=== PATIENT | male | born 1950 | race Caucasian/White ===

== ENCOUNTER → 2016-08-15 | Outpatient (CLI) | payer OTHER ==
[~2016-08-15] MED LIST: AMB5 PO; CHOL1000 PO; CYAN100T PO; DULO60CA44 PO; LISI-461 PO; OMEP40CA PO
--- NOTE | 2016-08-15 12:47 | DIAGNOSTIC IMAGING REPORT ---
LEFT CLAVICLE 2 VIEWS CLINICAL HISTORY: Fall with left clavicular pain. FINDINGS: 2 views of left clavicle are compared to study dated 05/09/2016. The skeletal structures appear osteopenic. There is chronic posttraumatic deformity of the left clavicle with mild apex superior angulation. No definite acute fracture is seen. Productive degenerative change is noted at the acromioclavicular articulation. Arthritic change is also seen at the glenohumeral joint. Visualized upper lobe lung parenchyma appears clear. IMPRESSION: Osteopenia with chronic posttraumatic deformity of the left clavicle as above. No acute fracture is clearly identified. Electronically signed by: Stu Faith M.D. 08/15/2016 12:46 PM Dictated Date/Time: 08/15/2016 12:43 PM
--- NOTE | 2016-08-15 12:52 | DIAGNOSTIC IMAGING REPORT ---
PA CHEST WITH RIGHT-SIDED RIB SERIES CLINICAL HISTORY: Fall with right-sided chest wall pain. FINDINGS: A PA chest radiograph with 4 additional views may right-sided rib series are compared to study dated 01/24/2015. Correlation is made with chest CT dated 12/18/2014. The cardiomediastinal silhouette is unremarkable. There is atherosclerotic calcification of the thoracic aorta. Chronic interstitial thickening is similar to previous. No airspace consolidation or pleural effusion is identified. No pneumothorax is seen. The skeletal structures are osteopenic. There is chronic posttraumatic deformity of the left clavicle and numerous healed left-sided rib fractures. There is no radiographic evidence of acute/distracted right-sided rib fracture on the rib series. Numerous healed anterior rib fractures are again seen. Degenerative change is noted throughout the thoracic spine. Fusion hardware is noted in the lumbar spine. IMPRESSION: 1. No acute cardiopulmonary abnormality. 2. There are numerous healed right anterior rib fractures. There is no clear radiographic evidence of acute/distracted right-sided rib fracture. 3. No pneumothorax is seen. Electronically signed by: Stu Faith M.D. 08/15/2016 12:51 PM Dictated Date/Time: 08/15/2016 12:46 PM
== END | disposition home or self-care (01) ==
LOC: C.RAD 12:21
PROVIDERS: ATTEND Physician Assistant
DX: W19.XXXA Unspecified fall, initial encounter (principal); S42.022P Displaced fracture of shaft of left clavicle, subsequent encounter for fracture with malunion

== ENCOUNTER → 2016-10-31 | Outpatient (CLI) | payer OTHER ==
[2016-10-31 11:24] LABS: BASO % 0.4 %; BASO ABS # 0.03 K/uL (0-0.2); COMPLETE YES; EOS % 4.4 %; HEMATOCRIT 43.8 % (42-52); IG% 0.3 %; LYMPH % 25.7 %; LYMPH ABS # 1.99 K/uL (1.2-3.4); MEAN CELL VOLUME 94.2 fL (80-100); MEAN CORPUSCULAR HEMOGLOBIN 33.1 pg (25-34); MEAN CORPUSCULAR HGB CONC 35.2 g/dl (32-36); MEAN PLATELET VOLUME 9.8 fL (7.4-10.4); MONO % 9.8 %; NEUT % 59.4 %; PLATELET COUNT 253 K/uL (130-400); RED BLOOD COUNT 4.65 M/uL (4.7-6.1); WHITE BLOOD COUNT 7.73 K/uL (4.8-10.8)
[2016-10-31 11:39] LABS: BLOOD UREA NITROGEN 13 mg/dl (7-18); BUN/CREATININE RATIO 14.8 (10-20); CALCIUM 9.3 mg/dl (8.5-10.1); CARBON DIOXIDE 29 mmol/L (21-32); CHLORIDE 100 mmol/L (98-107); CHOLESTEROL 188 mg/dl (0-200); CHOLESTEROL/HDL RATIO 5.5; CREATININE 0.88 mg/dl (0.60-1.40); GLUCOSE 217 mg/dl (70-99); HDL CHOLESTEROL 34 mg/dl; POTASSIUM 3.9 mmol/L (3.5-5.1); SODIUM 138 mmol/L (136-145)
[2016-10-31 11:40] LABS: LDL CHOLESTEROL CALCULATED 120 mg/dl; TRIGLYCERIDES 168 mg/dl (0-150); VERY LOW DENSITY LIPOPROT CALC 34 mg/dl
[2016-10-31 12:58] LABS: ESTIMATED AVERAGE GLUCOSE 212 mg/dl; HA1C FLAG Normal (Normal)
== END | disposition home or self-care (01) ==
LOC: C.LABSPEC 11:01
PROVIDERS: ATTEND Family Medicine
DX: S32.039D Unspecified fracture of third lumbar vertebra, subsequent encounter for fracture with routine healing (principal); X58.XXXD Exposure to other specified factors, subsequent encounter; E78.2 Mixed hyperlipidemia; Z98.1 Arthrodesis status; E11.622 Type 2 diabetes mellitus with other skin ulcer; G62.9 Polyneuropathy, unspecified

== ENCOUNTER 2021-05-10 11:49 | Inpatient (IN) ==
--- NOTE | 2021-05-10 11:36 | Emergency Department Note ---
Impression & Plan Acute ST segment elevation IA, Chest pain, Vomiting ED Provider Note NAME: KIRSTEN RODRIGUEZ AGE: 70 SEX: M : 1950 ARRIVES VIA: Ambulance INFORMANT: Patient, EMS ED PROVIDER(S): Fam Evans DO CHIEF COMPLAINT: Chest pain HPI: The patient is a 70-year-old male who presented to emergency department for an evaluation of chest pain. The patient's been experiencing symptoms over the last 3 days. He started having very severe nausea vomiting and upper chest discomfort over the last couple days. Symptoms appear to have improved somewhat but then he started having a return of his symptoms today. He notices chest heaviness and chest pressure. He states he has no back pain. He denies having any difficulty breathing or lower extremity swelling. He has a history of diabetes as well as tobacco use. He has not had any kind of heart attack in the past. He was brought to the emergency department via ALS. The patient was made a heart alert prior to arrival. He was given aspirin morphine Zofran and IV fluids prior to arrival. His pain is not significantly improved. The patient was made a heart alert and received into room B1. The patient has not seen his family doctor recently. ROS: See above HPI for pertinent positives & negatives. A total of 10 systems reviewed and were otherwise negative. PAST MEDICAL HISTORY: See Below PAST SURGICAL HISTORY: See Below FAMILY HISTORY: See Below SOCIAL HISTORY: See Below HOME MEDICATIONS: See Below ALLERGIES: See Below VITALS: See Below PHYSICAL EXAMINATION: GENERAL: The patient is awake and alert. He appears somewhat uncomfortable. EYES: The conjunctivae are clear. The pupils are round and reactive. EARS, NOSE, MOUTH AND THROAT: The nose is without any evidence of any deformity. NECK: The neck is nontender and supple. RESPIRATORY: Normal respiratory effort is noted there is no evidence of wheezing rhonchi or rales CARDIOVASCULAR: Regular rate and rhythm noted there no murmurs rubs or gallops normal S1 normal S2. GASTROINTESTINAL: The abdomen is soft. Abdomen is nontender. MUSCULOSKELETAL/EXTREMITIES: There is no evidence of gross deformity full range of motion is noted in the hips and shoulders. SKIN: There is no obvious evidence of any rash. There are no petechiae, pallor or cyanosis noted. NEUROLOGIC: Patient is awake alert and oriented x3 MEDICAL DECISION MAKING: The patient is a 70-year-old male who presented to the emergency department for an evaluation of chest pain. The patient arrived via ambulance. I did receive a prehospital notification about the patient as well as prehospital EKGs. The patient was made a heart alert prior to arrival. He received aspirin nitroglycerin morphine and IV fluids prior to arrival. His pain was not significantly improved. The patient's EKG appeared to be consistent with a STEMI however this appeared to be age-indeterminate given his prominent Q waves. The patient was evaluated by the rf technician in the emergency department. I also discussed his case with the on-call [facility] hospitalist group. They have agreed to evaluate the patient after the Curb Worker. Triage Nursing notes reviewed. Prior medical records reviewed Vital Signs: reviewed and remarkable for elevated blood pressure. Differential diagnosis: Cardiac ischemia, aortic dissection, pulmonary embolism, pneumothorax, pneumonia, pericarditis, myocarditis, esophageal rupture, GERD, cholecystitis, pancreatitis, musculoskeletal, as well as other pathologies. ER treatment provided: See below Diagnostics interpreted by me: ECG: EKG was obtained in the emergency department. My interpretation is normal sinus rhythm at 93 bpm. Poor baseline was noted. There was no ectopy. Significant ST segment elevation was noted in the inferior apical and low lateral leads. There is also Q waves noted anteriorly and inferiorly. This is likely consistent with a recent ST segment elevation IA. This was compared to a tracing from May 102015. The changes are new. Prehospital EKGs were evaluated. My interpretation is sinus rhythm at 84 bpm. There is no ectopy. Significant Q waves were noted in the inferior anterior and lateral leads. There was significant ST segment elevation noted in the inferior apical and low lateral leads. This appears to be consistent with an acute IA. This was compared to a tracing from May 102015. The ST segment in ischemic changes are new compared to the earlier tracing. A second EKG was obtained by the prehospital personnel. My interpretation is normal sinus rhythm at 81 bpm. Persistence of the earlier noted ST segment elevation as well as the inferior and low lateral Q waves was noted. Cardiac Monitoring: An order was placed for continuous cardiac monitoring. The monitor shows a rate of 87 bpm with sinus rhythm. Laboratory studies: As stated above and show below. Imaging studies: See below Consultation(s): I discussed this case with Dr. Guerrier who is the rf technician. I discussed this case with Rosmery who is on-call for the [facility] hospitalist group. They will evaluate the patient after the heart catheterization. Past Med/Surg History Medical History Depression Diabetes mellitus GERD (gastroesophageal reflux disease) HLD (hyperlipidemia) Surgical History History of carpal tunnel surgery History of cervical spinal surgery History of lumbar surgery Family History Mother Diabetes Breast cancer Macular degeneration Father Diabetes Heart disease Stroke Social History Smoking Status: Current every day smoker Tobacco Type: Cigarettes packs per day: 0.5; Years Smoked: 20; Hx Alcohol Use: No Hx Substance Use: No Preferred Language: Jordanian Communication Ability: Effective Feels Safe at Home: Yes Allergies Allergies Allergy/AdvReac Type Severity Reaction Status Date / Time adhesive AdvReac Intermediate SKIN Verified 04/12/15 08:45 REACTION WITH BLISTERS acetaminophen [From Percocet] AdvReac Unknown Verified 05/10/21 15:01 esomeprazole [From Nexium] AdvReac Unknown Verified 05/10/21 15:01 Influenza Virus Vaccines AdvReac Unknown Verified 05/10/21 15:01 oxycodone [From Percocet] AdvReac Unknown Verified 05/10/21 15:01 Home Meds Home Medications Medication Instructions Recorded Confirmed dulaglutide 3 mg/0.5 mL 3 mg SUBCUT WK 05/10/21 05/10/21 subcutaneous pen injector ([facility]) duloxetine 60 mg capsule,delayed 60 mg PO BID 05/10/21 05/10/21 release gabapentin 300 mg capsule 300 mg PO DAILY 05/10/21 05/10/21 mirtazapine 15 mg tablet 15 mg PO HS 05/10/21 05/10/21 pantoprazole 40 mg tablet,delayed 40 mg PO DAILY 05/10/21 05/10/21 release tramadol 50 mg tablet 50 mg PO Q6H PRN 05/10/21 05/10/21 Results & Data (ED) Vital Signs Vital Signs - 24 hr 05/10/21 11:52 05/10/21 11:57 05/10/21 13:40 Pulse Rate 94 H 90 Pulse Rate [Apical] 106 H Pulse Rate from SpO2 Sensor 92 H Respiratory Rate 20 20 23 Blood Pressure 176/129 H 135/80 Blood Pressure [Left Arm] 168/92 H Blood Pressure Mean 144 98 Blood Pressure Mean [Left Arm] 117 Pulse Oximetry 96 93 93 Oxygen Delivery Method Room Air Room Air Sepsis Recent Fever Within 48 Hours No Sepsis New/Unexplained Change in Mental Status No Sepsis Action Taken by Nursing No Action Required Home Medications Current Medication List: was personally reviewed by me Laboratory Data Attestation: I reviewed the patient's lab results. Result diagrams: 05/10/21 11:50 05/10/21 15:04 Lab Results 05/10/21 05/10/21 05/10/21 Range/Units 11:50 11:50 11:50 WBC 13.34 H (4.8-10.8) K/uL RBC 5.14 (4.7-6.1) M/uL Hgb 17.6 (14.0-18.0) g/dL POC Hgb (14.0-18.0) g/dl Hct 48.9 (42-52) % POC Hct (42-52) % MCV 95.1 (80-100) fL MCH 34.2 H (25-34) pg MCHC 36.0 (32-36) g/dL RDW Std Deviation 46.1 (36.4-46.3) fL RDW Coeff of Taz 13.3 (11.5-14.5) % Plt Count 206 (130-400) K/uL MPV 10.0 (7.4-10.4) fL Immature Gran % (Auto) 0.1 % Neut % (Auto) 86.2 % Lymph % (Auto) 9.7 % [place] % (Auto) 3.9 % Eos % (Auto) 0.0 % Baso % (Auto) 0.1 % Neut # (Auto) 11.48 H (1.4-6.5) K/uL Lymph # (Auto) 1.30 (1.2-3.4) K/uL [place] # (Auto) 0.52 (0.11-0.59) K/uL Eos # (Auto) 0.00 (0-0.5) K/uL Baso # (Auto) 0.02 (0-0.2) K/uL Immature Gran # (Auto) 0.02 (0.00-0.02) K/uL PT 10.4 (9.0-12.0) Seconds INR 1.0 (0.9-1.1) APTT 23.9 (21.0-31.0) Seconds PTT Ratio 0.9 Activ Coag Time Kaolin (94-140) SECONDS POC Sodium (135-144) mmol/L Sodium 137 (136-145) mmol/L POC Potassium (3.3-5.0) mmol/L Potassium 4.0 (3.5-5.1) mmol/L POC Chloride (101-112) mmol/L Chloride 100 (98-107) mmol/L Carbon Dioxide 25 (21-32) mmol/L POC Total CO2 (24-31) mmol/L Anion Gap 12.0 H (3-11) POC Anion Gap (16-25) mmol/L POC BUN (7-18) mg/dl BUN 15 (7-18) mg/dl Creatinine 1.08 (0.6-1.4) mg/dl POC Creatinine (0.6-1.3) mg/dl Est Cr Clr Drug Dosing 61.2 ml/min Est GFR ( Amer) 81.3 ml/min Est GFR (Non-Af Amer) 70.2 ml/min BUN/Creatinine Ratio 14.0 (10-20) Glucose 326 H* (70-99) mg/dl POC Glucose (other) (70-99) mg/dl Calcium 9.2 (8.5-10.1) mg/dl POC Ioniz Calcium Bart (1.12-1.32) mmol/l Total Bilirubin 0.8 (0.2-1) mg/dl AST 168 H (15-37) U/L ALT 54 (12-78) Alkaline Phosphatase 101 (45-117) U/L Troponin I 52.900 H* (0-0.045) ng/ml Total Protein 8.7 H (6.4-8.2) gm/dl Albumin 3.6 (3.4-5.0) gm/dl Globulin 5.1 H (2.5-4.0) gm/dl Albumin/Globulin Ratio 0.7 L (0.9-2) Lipase 123 (73-393) U/L Beta-Hydroxybutyric Acd 9.31 H (0.2-2.81) mg/dl Nasal Screen MRSA (PCR) (Negative) SARS-CoV-2, RNA, NAAT (NEGATIVE) 05/10/21 05/10/21 05/10/21 Range/Units 11:52 11:59 12:24 WBC (4.8-10.8) K/uL RBC (4.7-6.1) M/uL Hgb (14.0-18.0) g/dL POC Hgb 18.0 (14.0-18.0) g/dl Hct (42-52) % POC Hct 53 H (42-52) % MCV (80-100) fL MCH (25-34) pg MCHC (32-36) g/dL RDW Std Deviation (36.4-46.3) fL RDW Coeff of Taz (11.5-14.5) % Plt Count (130-400) K/uL MPV (7.4-10.4) fL Immature Gran % (Auto) % Neut % (Auto) % Lymph % (Auto) % [place] % (Auto) % Eos % (Auto) % Baso % (Auto) % Neut # (Auto) (1.4-6.5) K/uL Lymph # (Auto) (1.2-3.4) K/uL [place] # (Auto) (0.11-0.59) K/uL Eos # (Auto) (0-0.5) K/uL Baso # (Auto) (0-0.2) K/uL Immature Gran # (Auto) (0.00-0.02) K/uL PT (9.0-12.0) Seconds INR (0.9-1.1) APTT (21.0-31.0) Seconds PTT Ratio Activ Coag Time Kaolin 190 H (94-140) SECONDS POC Sodium 138 (135-144) mmol/L Sodium (136-145) mmol/L POC Potassium 4.1 (3.3-5.0) mmol/L Potassium (3.5-5.1) mmol/L POC Chloride 98 L (101-112) mmol/L Chloride (98-107) mmol/L Carbon Dioxide (21-32) mmol/L POC Total CO2 25 (24-31) mmol/L Anion Gap (3-11) POC Anion Gap 20.0 (16-25) mmol/L POC BUN 16 (7-18) mg/dl BUN (7-18) mg/dl Creatinine (0.6-1.4) mg/dl POC Creatinine 0.7 (0.6-1.3) mg/dl Est Cr Clr Drug Dosing ml/min Est GFR ( Amer) ml/min Est GFR (Non-Af Amer) ml/min BUN/Creatinine Ratio (10-20) Glucose (70-99) mg/dl POC Glucose (other) 338 H (70-99) mg/dl Calcium (8.5-10.1) mg/dl POC Ioniz Calcium Bart 1.05 L (1.12-1.32) mmol/l Total Bilirubin (0.2-1) mg/dl AST (15-37) U/L ALT (12-78) Alkaline Phosphatase (45-117) U/L Troponin I (0-0.045) ng/ml Total Protein (6.4-8.2) gm/dl Albumin (3.4-5.0) gm/dl Globulin (2.5-4.0) gm/dl Albumin/Globulin Ratio (0.9-2) Lipase (73-393) U/L Beta-Hydroxybutyric Acd (0.2-2.81) mg/dl Nasal Screen MRSA (PCR) (Negative) SARS-CoV-2, RNA, NAAT NEGATIVE (NEGATIVE) 05/10/21 05/10/21 Range/Units 12:37 13:40 WBC (4.8-10.8) K/uL RBC (4.7-6.1) M/uL Hgb (14.0-18.0) g/dL POC Hgb (14.0-18.0) g/dl Hct (42-52) % POC Hct (42-52) % MCV (80-100) fL MCH (25-34) pg MCHC (32-36) g/dL RDW Std Deviation (36.4-46.3) fL RDW Coeff of Taz (11.5-14.5) % Plt Count (130-400) K/uL MPV (7.4-10.4) fL Immature Gran % (Auto) % Neut % (Auto) % Lymph % (Auto) % [place] % (Auto) % Eos % (Auto) % Baso % (Auto) % Neut # (Auto) (1.4-6.5) K/uL Lymph # (Auto) (1.2-3.4) K/uL [place] # (Auto) (0.11-0.59) K/uL Eos # (Auto) (0-0.5) K/uL Baso # (Auto) (0-0.2) K/uL Immature Gran # (Auto) (0.00-0.02) K/uL PT (9.0-12.0) Seconds INR (0.9-1.1) APTT (21.0-31.0) Seconds PTT Ratio Activ Coag Time Kaolin 321 H (94-140) SECONDS POC Sodium (135-144) mmol/L Sodium (136-145) mmol/L POC Potassium (3.3-5.0) mmol/L Potassium (3.5-5.1) mmol/L POC Chloride (101-112) mmol/L Chloride (98-107) mmol/L Carbon Dioxide (21-32) mmol/L POC Total CO2 (24-31) mmol/L Anion Gap (3-11) POC Anion Gap (16-25) mmol/L POC BUN (7-18) mg/dl BUN (7-18) mg/dl Creatinine (0.6-1.4) mg/dl POC Creatinine (0.6-1.3) mg/dl Est Cr Clr Drug Dosing ml/min Est GFR ( Amer) ml/min Est GFR (Non-Af Amer) ml/min BUN/Creatinine Ratio (10-20) Glucose (70-99) mg/dl POC Glucose (other) (70-99) mg/dl Calcium (8.5-10.1) mg/dl POC Ioniz Calcium Bart (1.12-1.32) mmol/l Total Bilirubin (0.2-1) mg/dl AST (15-37) U/L ALT (12-78) Alkaline Phosphatase (45-117) U/L Troponin I (0-0.045) ng/ml Total Protein (6.4-8.2) gm/dl Albumin (3.4-5.0) gm/dl Globulin (2.5-4.0) gm/dl Albumin/Globulin Ratio (0.9-2) Lipase (73-393) U/L Beta-Hydroxybutyric Acd (0.2-2.81) mg/dl Nasal Screen MRSA (PCR) Negative (Negative) SARS-CoV-2, RNA, NAAT (NEGATIVE) Administered Medications Insulin Human Regular 250 (units/ Sodium Chloride) 250 mls @ 1.9 mls/hr IV .Q24H RASHID; Protocol Stop: 06/09/21 14:29 Last Admin: 05/10/21 15:17 Dose: 1.9 unit/hr, 1.9 mls/hr Documented by: [id number] Cosigned by: [id number] Metoprolol Tartrate (Metoprolol Tartrate 25 Mg Tab) 25 mg PO BID RASHID Stop: 06/09/21 20:59 Last Admin: 05/10/21 15:36 Dose: 25 mg Documented by: [id number] Miscellaneous (Pending Order [Insulin Infusion]) 1 ea N/A QSHIFT RASHID Stop: 06/09/21 15:59 Last Admin: 05/10/21 15:37 Dose: Not Given Documented by: [id number] Discontinued Medications Furosemide (Furosemide Inj 20 Mg/2 Ml Vial) 20 mg IV ONE ONE Stop: 05/10/21 13:46 Last Admin: 05/10/21 15:20 Dose: 20 mg Documented by: [id number] Insulin Glargine (Insulin Glargine Solostar 100 Units/Ml 3 Ml Pen) 15 units SC ONE ONE Stop: 05/10/21 15:01 Last Admin: 05/10/21 15:16 Dose: 15 units Documented by: [id number] Cosigned by: [id number] Insulin Human Regular (Novolin-R Bolus From Bag) 2 units IV ONE ONE Stop: 05/10/21 14:46 Last Admin: 05/10/21 15:18 Dose: 2 units Documented by: [id number] Cosigned by: [id number] Lisinopril (Lisinopril 5 Mg Tab) 5 mg PO NOW ONE Stop: 05/10/21 15:14 Last Admin: 05/10/21 15:37 Dose: 5 mg Documented by: [id number] Miscellaneous (Insulin Protocol Goal Range ) 1 ea N/A ONE ONE Stop: 05/10/21 14:29 Last Admin: 05/10/21 15:18 Dose: 1 ea Documented by: [id number] Miscellaneous (Moderate Stress Level ) 1 ea N/A ONE ONE Stop: 05/10/21 14:29 Last Admin: 05/10/21 15:03 Dose: 1 ea Documented by: [id number] Ticagrelor (Ticagrelor 90 Mg Tab) 180 mg PO ONCE ONE Stop: 05/10/21 13:18 Last Admin: 05/10/21 13:18 Dose: 180 mg Documented by: [id number] Imaging Data Radiologist's Impression: Chest X-Ray 05/10/21 11:26 XR chest 1V portable HISTORY: 70 years-old Male Chest Pain acute atypical chest pain COMPARISON: Chest and rib radiographs 08/15/2016 TECHNIQUE: Portable semierect AP view of the chest FINDINGS: The cardiomediastinal and hilar silhouettes are unchanged. There is no pneumothorax, pleural effusion, overt pulmonary edema lobar airspace consolidation. Mild chronic interstitial coarsening. Unchanged blunting of the costophrenic angles. Degenerative changes of the shoulders and spine. Healed chronic right-sided rib fractures. IMPRESSION: No acute process. ACT 112: Negative or not required by law. The above report was generated using voice recognition software. It may contain grammatical, syntax or spelling errors. Electronically signed by: Roshan Briggs M.D. 05/10/2021 12:03 PM Discharge Plan Visit Data Chief Complaint: Heart Alert Stated Complaint: CHEST PAIN ED Provider: aFm Evans Discharge Problem: Acute ST segment elevation IA, Chest pain, Vomiting Patient Disposition: Admitted As Inpatient Discharge Instructions Interventions: ED Discharge Assessment Last Done: 05/10/21 11:59 Discharge Problem: Acute ST segment elevation IA Qualifiers: Involved coronary artery: unspecified coronary artery Qualified Code(s): I21.3 - ST elevation (STEMI) myocardial infarction of unspecified site Chest pain Qualifiers: Chest pain type: unspecified Qualified Code(s): R07.9 - Chest pain, unspecified Vomiting Qualifiers: Vomiting type: unspecified Nausea presence: with nausea Qualified Code(s): R11.2 - Nausea with vomiting, unspecified
[~2021-05-10 11:49] MED LIST changes: -AMB5 PO; -CHOL1000 PO; -CYAN100T PO; -DULO60CA44 PO; +HEPARIN (PORCINE) 1000 UNIT/ML 10 ML (CATH LAB USE ONLY) ONE; -LISI-461 PO; +MIDAZOLAM HCL 1 MG/ML 2ML VIAL ONE; +NITROGLYCERIN/D5W 100MCG/ML 20ML SYR ONE; -OMEP40CA PO; +fentaNYL citrate 100 MCG/2 ML VIAL ONE; +niCARdipine HCL INJ 2.5 MG/ML 10 ML AMP ONE
--- NOTE | 2021-05-10 12:04 | XRay Report ---
XR chest 1V portable HISTORY: 70 years-old Male Chest Pain acute atypical chest pain COMPARISON: Chest and rib radiographs 08/15/2016 TECHNIQUE: Portable semierect AP view of the chest FINDINGS: The cardiomediastinal and hilar silhouettes are unchanged. There is no pneumothorax, pleural effusion , overt pulmonary edema lobar airspace consolidation. Mild chronic interstitial coarsening. Unchanged blunting of the costophrenic angles. Degenerative changes of the shoulders and spine. Healed chronic right-sided rib fractures. IMPRESSION: No acute process. ACT 112: Negative or not required by law. The above report was generated using voice recognition software. It may contain grammatical, syntax o r spelling errors. Electronically signed by: Roshan Briggs M.D. 05/10/2021 12:03 PM
--- NOTE | 2021-05-10 12:05 | Pre Anesthesia Assessment ---
Date of Service May 10, 2021 Pre Sedation Assessment Vital Signs Pulse Resp BP Pulse Ox 05/10/21 11:52 94 H 20 176/129 H 96 Cardiovascular RRR, no murmur, no edema Respiratory normal respiratory effort, lungs clear to auscultation Pre-Sedation Airway Assessment Smoking Status: Current every day smoker Hx Sleep Apnea: No Hx Difficult Intubation: No Short, Thick Neck: No Oral Cavity: + WNL Mallampati Class: III ASA: ASA4 Procedure Planning Contraindications for Sedation: none Current Medications Reviewed: Yes Notes The planned sedation has been discussed with the patient. Informed Consent was obtained. I have identified the patient, determined the appropriateness of sedation and have assessed the patient immediately prior to the procedure. All medicine(s) and interventions are by my order.
[2021-05-10 12:09] LABS: Basophils # (auto) 0.02 K/uL (0-0.2); Basophils % (auto) 0.1 %; Hematocrit (blood only) 48.9 % (42-52); Hemoglobin 17.6 g/dL (14.0-18.0); Immature Granulocytes # (auto) 0.02 K/uL (0.00-0.02); Immature Granulocytes % (auto) 0.1 %; Lymphocytes % (auto) 9.7 %; Mean Corpuscular Hemoglobin 34.2 pg (25-34); Mean Corpuscular Volume 95.1 fL (80-100); Monocytes # (auto) 0.52 K/uL (0.11-0.59); Monocytes % (auto) 3.9 %; Neutrophils # (auto) 11.48 K/uL (1.4-6.5); Neutrophils % (auto) 86.2 %; Platelet Count 206 K/uL (130-400); RDW Coefficient of Variation 13.3 % (11.5-14.5); RDW Standard Deviation 46.1 fL (36.4-46.3); Red Blood Count 5.14 M/uL (4.7-6.1); White Blood Count 13.34 K/uL (4.8-10.8)
--- NOTE | 2021-05-10 12:09 | Cardiology Consultation ---
Date of Consultation May 10, 2021 Assessment & Plan (1) Acute ST segment elevation VT: Presentation consistent with anterior STEMI and recommend proceeding with emergent cardiac catheterization and likely primary PCI. No apparent contraindications to procedure. Discussed risks, benefits, alternatives of procedure with patient and they are willing to proceed. Further recommendations pending findings of coronary angiography. History of Present Illness History of Present Illness 70-year-old man here with acute chest pain and ECG concerning for acute VT. Patient seen emergently in the ED after heart alert activated en route. No prior cardiac history. Cardiac risk factors include type 2 diabetes on oral therapy complicated by peripheral neuropathy, active tobacco abuse, dyslipidemia. Other medical issues include GERD. Patient had an episode of chest pain, nausea 2 days ago which he attributed to a viral illness. Symptoms went away with extended rest. Yesterday patient felt well, at his baseline. This morning around 2 AM was awoken with similar chest pain, nausea/vomiting. Pain persisted for more than 6 hours and began radiating into neck and left arm. At that time EMS contacted. Given morphine, nitro, aspirin without significant relief in chest pain. ECG on arrival showed anterior ST elevations. Patient hemodynamically stable. Allergies Allergy/AdvReac Type Severity Reaction Status Date / Time adhesive AdvReac Intermediate SKIN Verified 04/12/15 08:45 REACTION WITH BLISTERS Influenza Virus Vaccine Split AdvReac Unknown Uncoded 09/01/19 07:39 NexIUM 24HR CPDR AdvReac Unknown Uncoded 09/01/19 07:39 Percocet TABS AdvReac Unknown Uncoded 09/01/19 07:40 Home Medications Medication Instructions Recorded Confirmed Type dulaglutide 3 mg/0.5 mL 3 mg SUBCUT WK 05/10/21 05/10/21 History subcutaneous pen injector (Trulicity) duloxetine 60 mg capsule,delayed 60 mg PO BID 05/10/21 05/10/21 History release gabapentin 300 mg capsule 300 mg PO DAILY 05/10/21 05/10/21 History mirtazapine 15 mg tablet 15 mg PO HS 05/10/21 05/10/21 History pantoprazole 40 mg tablet,delayed 40 mg PO DAILY 05/10/21 05/10/21 History release tramadol 50 mg tablet 50 mg PO Q6H PRN 05/10/21 05/10/21 History Patient History Medical History (Updated 05/10/21 @ 13:18 by Rosmery Park PA-C) Depression Diabetes mellitus GERD (gastroesophageal reflux disease) HLD (hyperlipidemia) Surgical History (Updated 05/10/21 @ 13:18 by Rosmery Park PA-C) History of carpal tunnel surgery History of cervical spinal surgery History of lumbar surgery Family History (Updated 09/01/19 @ 07:45 by Mark Rodriguez MD) Mother Diabetes Breast cancer Macular degeneration Father Diabetes Heart disease Stroke Social History (Updated 05/10/21 @ 13:18 by Rosmery Park PA-C) Smoking Status: Current every day smoker Tobacco Type: Cigarettes Hx Alcohol Use: No Hx Substance Use: No Preferred Language: Thai Communication Ability: Effective Feels Safe at Home: Yes Review of Systems Review of Systems: Not obtained in the emergent setting Physical Exam Physical Exam: General: Uncomfortable HEENT: Sclerae anicteric Lungs: Clear to auscultation anteriorly Cardiac: Regular rate and rhythm, no murmurs. Vascular: 2+ radial bilaterally Abdomen: Soft, nontender Extremities: Well perfused, no peripheral edema Neuro: Nonfocal Psych: Alert orient x3, normal affect and mood Results & Data ([facility]) Vital Signs (Past 12 Hours) Vital Signs Pulse Pulse Resp BP BP Pulse Ox 05/10/21 11:57 106 H 20 168/92 H 93 05/10/21 11:52 94 H 20 176/129 H 96 PG Care Time/CCT Total # of Minutes Spent Total Time Spent with Patient: Total time spent is greater than 50% in coordination of care (as documented) at patient's floor/unit and/or counseling patient: Coding Level of Care Code 68324 Initial Inpt Care Lvl [address] segment elevation VT I21.3 Involved coronary artery: unspecified coronary artery (1) Acute ST segment elevation VT Involved coronary artery: unspecified coronary artery Qualified Code(s): I21.3 - ST elevation (STEMI) myocardial infarction of unspecified site
[2021-05-10 12:11] LABS: iSTAT Creatinine 0.7 mg/dl (0.6-1.3); iSTAT Ionized Calcium 1.05 mmol/l (1.12-1.32); iSTAT Potassium 4.1 mmol/L (3.3-5.0)
[2021-05-10 12:24] LABS: Partial Thromboplastin Ratio 0.9; Partial Thromboplastin Time 23.9 Seconds (21.0-31.0); Prothrombin Time 10.4 Seconds (9.0-12.0)
[2021-05-10] MEDS ORDERED: HEPARIN (PORCINE) 1000 UNIT/ML 10 ML (CATH LAB USE ONLY) ONE (12:27)
[2021-05-10 12:38] LABS: Albumin Level 3.6 gm/dl (3.4-5.0); Calcium 9.2 mg/dl (8.5-10.1); Creatinine Clr Calc Pharmacy 61.2 ml/min; Est GFR (African American) 81.3 ml/min; Est GFR (Non-African American) 70.2 ml/min
[2021-05-10 13:04] LABS: Albumin Globulin Ratio 0.7 (0.9-2); Bilirubin,Total 0.8 mg/dl (0.2-1); Globulin 5.1 gm/dl (2.5-4.0); Total Protein 8.7 gm/dl (6.4-8.2)
[2021-05-10 13:12] LABS: Beta-Hydroxybutyrate 9.31 mg/dl (0.2-2.81)
[2021-05-10 13:13] LABS: Troponin I 52.9 ng/ml (0-0.045)
[2021-05-10] MEDS ORDERED: TICAGRELOR 90 MG TAB PO ONE ×2 (13:14→13:17)
[2021-05-10] MEDS ORDERED: ONDANSETRON INJ 2 MG/ML 2 ML VIAL IV PRN (13:34)
[2021-05-10] MEDS ORDERED: ACETAMINOPHEN 325 MG TAB PO PRN (13:34)
[2021-05-10] MEDS ORDERED: NITROGLYCERIN SL 0.4 MG/TAB TAB SL PRN (13:34)
[2021-05-10] MEDS ORDERED: ICU PROTOCOL FOR HYPERGLYCEMIA PRN (13:39)
[2021-05-10] MEDS ORDERED: FUROSEMIDE INJ 20 MG/2 ML VIAL IV ONE (13:45)
--- NOTE | 2021-05-10 13:47 | Post Anesthesia Assessment ---
Date of Service May 10, 2021 Post Sedation Assessment Vital Signs Pulse Pulse Resp BP BP Pulse Ox 05/10/21 11:57 106 H 20 168/92 H 93 05/10/21 11:52 94 H 20 176/129 H 96 Recovery Score Activity: Moves 4 extremities Respiration: Deep Breath/Cough Circulation: +/-20% PreAnes Value Consciousness: Fully Awake Oxygen Saturation: O2 needed for >90% Discharge Sedation Level of Care: Fast Track Phase II Post Sedation Plan On clinical assessment, the patient appears to have tolerated the sedation without complications. Patient is recovering as anticipated. Patient will continue to be monitored by nursing and may be discharged when sedation discharge criteria are met per below protocol. Upon Completions of procedure up to 15 minutes continue every 5 minute vital signs and the P.A.R. score; then discharge to a Phase I or Fast Track to Phase II per the following guidelines: * Discharge Patient to appropriate Phase II area if PAR is 8 or greater or return to pre- procedure baseline. The post - procedure orders will be as directed. * If PAR score is less than 8 or not return to pre-procedure baseline then patient will follow Phase I monitoring till PAR is reached for Phase II. The Phase I may be done in procedure room or may call to secure a Phase I area. * If naloxone or flumazenil are used for reversal, hold in Phase I for continued monitoring from when last reversal dose was given for a minimum of 60 minutes or longer pending the nurse and/or physician discretion of patient condition before discharge to Phase II. Please call the Sedation Physician to re-evaluate and complete post-note for discharge to Phase II area. Do NOT discharge from procedure sedation or Phase 1 until post- sedation evaluation note is complete by procedure /sedation MD Sedation Discharge Instructions to be given to the patient at discharge to home.
--- NOTE | 2021-05-10 13:54 | Cardiac Catheterization ---
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 Cardiac Status Clinical evaluation leading to the procedure CAD Presenation: STEMI Heart Failure: No Cardiogenic Shock within 24 Hours: No Cardiac Arrest within 24 Hours: No Imaging Studies Past 6 Months: No Stress Studies Past 6 Months: No Diagnostic Physicians Name: Lam Guerrier MD Status: Emergency Closure Device Percutaneous Entry Location: Radial Closure Device: Radial Band Recommendations: PCI without planned CABG PCI Indication: Immediate PCI for STEMI Lesion Segment Name: Mid LAD Culprit Artery: Yes Stenosis Prior to Rx (%): 100 Chronic Total Occlusion: No IVUS: No FFR: No Pre-Procedure OSCAR Flow: 0 Previously Treated Lesion: No Lesion Complexity: High/C Lesion Length (mm): 45 Thrombus Present: Yes Bifurcation Lesion: Yes Guidewire Across Lesion: Stenosis Post-Procedure (%): 0 Post-Procedure OSCAR Flow: 3 Devices(s) Deployed: Yes Yes Intraprocedure Events Significant Disection: No Perforation: No Cardiac Cath Procedure Full Procedure Date May 10, 2021 Pre-Procedure Diagnosis Pre-Procedure Diagnosis: STEMI AUC Score AUC Score: 9 Post-Procedure Diagnosis Post-Procedure Diagnosis: Severe CAD, Successful PCI and Elevated Intracardiac Pressures Procedure(s) Performed Procedure(s) Performed: Coronary Angiography, Left Heart Cath, Drug Eluting Stent and IVUS Electric Distribution Checker Lam Guerrier MD Resident Care Manager(s) Talent Sourcing Specialist Estimated Blood Loss Estimated Blood Loss: 20 Medication(s) Medication(s): Fentanyl, Heparin, Lidocaine 1%, Nicardipine, Nitroglycerin and Versed Medication(s): Ticagrelor Summary of Findings Indication: STEMI/Heart Alert Anterior STEMI. Stuttering chest pain for 2 days. Persistent chest pain today for >9 hours. Access: 6 Fr right radial artery Catheters: EBU 3.5 guide, diagnostic JR4 Findings: LM -normal caliber, mildly calcified, luminal irregularities LAD -medium caliber, heavily calcified proximally, 50 to 60% ostial stenosis, diffuse moderate proximal to mid disease prior to 100% mid LAD occlusion. Moderate D1 with 50 to 60% proximal disease Circumflex -dominant, large caliber, 40 to 50% ostial. Large OM1 without significant disease. Mid to distal circumflex and small left PDA without disease. RCA -small, nondominant, no significant disease LVEDP -32 -- PCI -- Antithrombotic therapy: Heparin, ticagrelor Procedure: Left main cannulated with EBU 3.5 guide Rock Contractor 50 wire passed across lesion into distal vessel Mid LAD lesion predilated with 2.5 compliant balloon [place] IVUS catheter used to assess extent of disease, for vessel sizing. Unable to pass IVUS catheter passed proximal disease. Pullback across ostium into left main revealed moderate ostial LAD/circumflex disease. Mild distal left main disease. Proximal to mid LAD redilated with 2.75 balloon Dilated mid LAD lesion stented with 2.75 x 26 mm Fenton drug-eluting stent [place] wire placed into circumflex/large OM1 Second ERIC (3.0 x 30 mm Fenton) placed distal to the LAD ostium to mid segment overlapping proximal aspect of prior stent Repeat IVUS assessment revealed well apposed stent with no apparent edge complications. Moderate residual ostial stenosis. Stents underexpanded. Stents post-dilated with 3.5 noncompliant balloon IC vasodilators administered for spasm Post procedure OSCAR 3 flow, stents well expanded with minimal residual stenosis and no apparent cardiac complications. Arterial Closure: TR band Summary: 1. Anterior STEMI/Acute 100% mid LAD occlusion. 2. Elevated intracardiac filling pressure (LVEDP 32). 3. Successful PCI of proximal to mid LAD with 2 overlapping drug-eluting stents (3.0 x 30, 2.75 x 26 mm Fenton; postdilated with 3.5 NC). 4. Moderate residual nonculprit CAD. 50% ostial LAD. Jailed D1 with 50% ostial stenosis. 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 Trend troponins until peak, Check Echo Given 20 IV Lasix for elevated filling pressures Uptitrate beta-leo/RICHARD as BP allows High-dose statin Smoking cessation Consult cardiac Rehab Hemodynamics Rest Ao:: 165/76/109 Final Ao: 152/83/107 LV: 154/35 Recommendations Recommendations: PCI without planned CABG Specimens Specimens: None Radiation Exposure (mGy) 2960 Contrast (mls) 125 Fluids (cc crystalloids) Fluids (cc crystalloids): 140 Drains Drains: None Anesthesia Moderate 3177-1332 Procedural Complication(s) None Disposition ICU I attest to the content of the Intraoperative Record and any orders documented therein. Any exceptions are noted below. [facility] Card Cath Procedure Codes Cardiac Catheterization Procedure 1: Cardiovascular Cath Procedures: 57534 Coronaries and LHC (+/-LV) Therapeutic Services & Ancillary Proc Procedure 1: Cardiovascular Tx and Anc Procedures: 05134 IV Ultrasound (Coronary or Graft) Moderate Sedation Procedure 1: Sedation/Anesthesia: 78363 Mod Sedation by the same physician;Init15 Min Child Age 5 & Up Procedure 2: Sedation/Anesthesia: 67241 Mod Sedation by the same physician; Ea [id number] Minutes Stenting Procedure 1: Cardiovascular Stent Procedures: 42031 Perc transluminal revascularization of acute sub/total occl, aMI PG Care Time/CCT Total # of Minutes Spent Total Time Spent with Patient: Total time spent is greater than 50% in coordination of care (as documented) at patient's floor/unit and/or counseling patient:
[2021-05-10] MEDS ORDERED: DEXTROSE 50% 50 ML SYRINGE IV PRN ×2 (14:17→14:45)
[2021-05-10] MEDS ORDERED: GLUCAGON FOR INJ 1 MG VIAL SQ PRN (14:17)
[2021-05-10] MEDS ORDERED: GLUCOSE 40% GEL 15 GM TUBE PO PRN ×2 (14:17→14:45)
[2021-05-10] MEDS ORDERED: GLUCOSE 10 TABS/TUBE PO PRN ×2 (14:17→14:45)
[2021-05-10] MEDS ORDERED: PHARMACY GLYCEMIC MGMT CONSULT PRN (14:17)
[2021-05-10] MEDS ORDERED: CARBOHYDRATES FOR HYPOGLYCEMIA PO PRN ×2 (14:17→14:45)
[2021-05-10] MEDS ORDERED: MODERATE STRESS LEVEL ONE (14:28)
[2021-05-10] MEDS ORDERED: INSULIN PROTOCOL GOAL RANGE ONE (14:28)
[2021-05-10] MEDS ORDERED: STAT IV Infusion **Titration per Protocol STA (14:28)
--- NOTE | 2021-05-10 14:38 | History & Physical Report ---
Date of Service May 10, 2021 Assessment & Plan (1) Acute ST segment elevation HI: (2) Chest pain: (3) Diabetes mellitus: Plan: This is a 70-year-old male patient is a 70-year-old male who has significant past medical history of T2DM, hyperlipidemia, HTN, GERD, chronic back pain, history of multiple cervical and lumbar surgeries, peripheral neuropathy who presents to ED secondary to chest pain. ANTERIOR STEMI with 100% mid LAD occlusion Chest Pain s/p PCI of proximal to mid LAD with 2 overlapping drug-eluting stentsby Dr. Guerrier 4. Moderate residual nonculprit CAD. 50% ostial LAD. Jailed D1 with 50% ostial stenosis. 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 and if no contraindication add chemical prophylaxis Dispo: ICU PCP: Adrien FULL CODE Pt was seen and examined in collaboration with Dr. Iqbal, please see addendum The chart was completed utilizing [employer] voice recognition software. Grammatical errors, random word insertions, pronoun errors, and incomplete sentences are an occasional consequence of this system due to software limitations, ambient noise, and hardware issues. Any formal questions or concerns about the content, text, or information contained within the body of this dictation should be directly addressed to the provider for clarification. Admission and Anticipated Discharge Date Admission Date: May 10, 2021 History of Present Illness Chief Complaint: Chest Pain s/p ERIC x 2 Primary Care Provider: Dr. Jurado This is a 70-year-old male patient is a 70-year-old male who has significant past medical history of T2DM, hyperlipidemia, HTN, GERD, chronic back pain, history of multiple cervical and lumbar surgeries, peripheral neuropathy who presents to ED secondary to chest pain. Patient was made a heart alert second chaim to EKG findings concerning for acute ST elevation HI. Patient underwent emergent cardiac catheterization which revealed an acute 100% mid LAD occlusion and elevated intracardiac filling pressure. He underwent successful PCI of the proximal to mid LAD with 2 overlapping drug-eluting stents. He does have evidence of moderate residual nonculprit CAD with evidence of 50% ostial LAD and 40-50% ostial dominant circumflex disease. Patient was loaded with ticagrelor and is recommended to continue on dual antiplatelet therapy for at least 1 year. Due to elevated filling pressures he was also given 20 mg of IV Lasix. Postoperatively patient continues to have mild substernal chest discomfort but otherwise feels much improved. He denies any fever, chills, sweats, lightheadedness, dizziness, shortness of breath, palpitations, nausea, vomiting, abdominal pain. He states his chest pain initially started 2 days ago. Allergies Allergy/AdvReac Type Severity Reaction Status Date / Time adhesive AdvReac Intermediate SKIN Verified 04/12/15 08:45 REACTION WITH BLISTERS Influenza Virus Vaccine Split AdvReac Unknown Uncoded 09/01/19 07:39 NexIUM 24HR CPDR AdvReac Unknown Uncoded 09/01/19 07:39 Percocet TABS AdvReac Unknown Uncoded 09/01/19 07:40 Home Medications Medication Instructions Recorded Confirmed Type dulaglutide 3 mg/0.5 mL 3 mg SUBCUT WK 05/10/21 05/10/21 History subcutaneous pen injector (Trulicity) duloxetine 60 mg capsule,delayed 60 mg PO BID 05/10/21 05/10/21 History release gabapentin 300 mg capsule 300 mg PO DAILY 05/10/21 05/10/21 History mirtazapine 15 mg tablet 15 mg PO HS 05/10/21 05/10/21 History pantoprazole 40 mg tablet,delayed 40 mg PO DAILY 05/10/21 05/10/21 History release tramadol 50 mg tablet 50 mg PO Q6H PRN 05/10/21 05/10/21 History Past Med/Surg History Medical History Depression Diabetes mellitus GERD (gastroesophageal reflux disease) HLD (hyperlipidemia) Surgical History History of carpal tunnel surgery History of cervical spinal surgery History of lumbar surgery Family History Mother Diabetes Breast cancer Macular degeneration Father Diabetes Heart disease Stroke Social History Smoking Status: Current every day smoker Tobacco Type: Cigarettes packs per day: 0.5; Years Smoked: 20; Hx Alcohol Use: No Hx Substance Use: No Preferred Language: [place] Communication Ability: Effective Feels Safe at Home: Yes Review of Systems 2 Review of Systems: All systems reviewed & are unremarkable except as noted in HPI & below Physical Exam Physical Exam: Constitutional: WD/WN, vitals as above, NAD, sitting up in bed, pleasant, conversing easily Head: Normocephalic, Atraumatic Eyes: PERRL, conjunctivae normal, anicteric sclerae ENMT: external ear and nose normal, oropharynx normal Neck: trachea midline, no thyromegaly normal visual inspection Respiratory: normal respiratory effort, lungs clear to auscultation, no wheeze, rales, rhonchi. Normal insp/exp effort, no accessory muscle use Cardiovascular: RRR, R radial band, no murmur, no edema Vessels: no JVD or carotid bruit Chest: normal inspection of chest Abdomen: normal bowel sounds, soft, nontender, no hepatosplenomegaly Musculoskeletal: no cyanosis or clubbing, extremities motor strength 5/5 Skin: no rashes, warm and dry normal turgor Neurologic: PERRL, EOMI, accommodation nl, no face palsy, no dysarthria CN's II-XI intact bilaterally and moves all extremities Psychiatric: A+Ox3, euthymic affect Lymphatic: no cervical or axillary lymphadenopathy : deferred Results & Data Results & Data ([facility]) Vital Signs (Past 12 Hours) Vital Signs Pulse Pulse Resp BP BP Pulse Ox 05/10/21 14:10 87 26 H 92 05/10/21 14:00 91 H 19 160/95 H 93 05/10/21 13:50 85 21 93 05/10/21 13:40 90 23 135/80 93 05/10/21 11:57 106 H 20 168/92 H 93 05/10/21 11:52 94 H 20 176/129 H 96 Diagnostic Findings Cardiac Cath: Summary: 1. Anterior STEMI/Acute 100% mid LAD occlusion. 2. Elevated intracardiac filling pressure (LVEDP 32). 3. Successful PCI of proximal to mid LAD with 2 overlapping drug-eluting stents (3.0 x 30, 2.75 x 26 mm Phil; postdilated with 3.5 NC). 4. Moderate residual nonculprit CAD. 50% ostial LAD. Jailed D1 with 50% ostial stenosis. 40-50% ostial dominant circumflex Chest X-Ray 05/10/21 11:26 XR chest 1V portable HISTORY: 70 years-old Male Chest Pain acute atypical chest pain COMPARISON: Chest and rib radiographs 08/15/2016 TECHNIQUE: Portable semierect AP view of the chest FINDINGS: The cardiomediastinal and hilar silhouettes are unchanged. There is no pneumothorax, pleural effusion, overt pulmonary edema lobar airspace consolidation. Mild chronic interstitial coarsening. Unchanged blunting of the costophrenic angles. Degenerative changes of the shoulders and spine. Healed chronic right-sided rib fractures. IMPRESSION: No acute process. ACT 112: Negative or not required by law. The above report was generated using voice recognition software. It may contain grammatical, syntax or spelling errors. Electronically signed by: Roshan Briggs M.D. 05/10/2021 12:03 PM Medications Administered Current Inpatient Medications Acetaminophen (Acetaminophen 325 Mg Tab) 650 mg PO Q4H PRN PRN Reason: MILD Pain (Scale 1,2,3) Stop: 06/09/21 13:33 Aspirin (Aspirin 81 Mg Ectab) 81 mg PO [facility] Stop: 06/10/21 08:59 Atorvastatin Calcium (Atorvastatin 40 Mg Tab) 80 mg PO [facility] Stop: 06/10/21 08:59 Dextrose (Dextrose 50% 50 Ml Syringe) 25 - 50 ml IV UD PRN; Protocol PRN Reason: Hypoglycemia Protocol Stop: 06/09/21 14:16 Glucagon (Glucagon For Inj 1 Mg Vial) 1 mg SQ UD PRN; Protocol PRN Reason: Hypoglycemia Protocol Stop: 06/09/21 14:16 Glucose (Glucose 10 Tabs/Tube) 4 - 8 tabs PO UD PRN; Protocol PRN Reason: Hypoglycemia Protocol Stop: 06/09/21 14:16 Glucose (Glucose 40% Gel 15 Gm Tube) 15 - 30 gm PO UD PRN; Protocol PRN Reason: Hypoglycemia Protocol Stop: 06/09/21 14:16 Insulin Aspart (Insulin Aspart Per Unit) 0 units SC ACHS RASHID Stop: 06/09/21 16:29 Insulin Glargine (Insulin Glargine Solostar 100 Units/Ml 3 Ml Pen) 0 - 12 units SC BID RASHID Stop: 06/09/21 20:59 Lisinopril (Lisinopril 5 Mg Tab) 5 mg PO QAM RASHID Stop: 06/10/21 08:59 Metoprolol Tartrate (Metoprolol Tartrate 25 Mg Tab) 25 mg PO BID RASHID Stop: 06/09/21 20:59 Miscellaneous (Icu Protocol For Hyperglycemia) 1 ea N/A PRN PRN; Protocol PRN Reason: Hyperglycemia Protocol Stop: 05/12/21 13:38 Miscellaneous (Carbohydrates For Hypoglycemia ) 15 - 30 gm PO UD PRN PRN Reason: Hypoglycemia Protocol Stop: 06/09/21 14:16 Miscellaneous Information (Pharmacy Glycemic Mgmt Consult) 1 ea N/A UD PRN PRN Reason: Consult Stop: 06/09/21 14:16 Nitroglycerin (Nitroglycerin Sl 0.4 Mg/Tab Tab) 0.4 mg SL PRN PRN PRN Reason: Chest Pain Stop: 06/09/21 13:33 Ondansetron HCl (Ondansetron Inj 2 Mg/Ml 2 Ml Vial) 4 mg IV Q6H PRN PRN Reason: Nausea And Vomiting Stop: 06/09/21 13:33 Pantoprazole Sodium (Pantoprazole 40 Mg Tab) 40 mg PO DAILY RASHID Stop: 06/10/21 08:59 Ticagrelor (Ticagrelor 90 Mg Tab) 90 mg PO BID [facility] Stop: 06/10/21 08:59 ECG Rate (beats per minute): 93 Rhythm: normal sinus Findings: + ST elevation and + acute ischemic change COVID-19 Results Results COVID-19 Adm Lab Results: RBC 5.14 M/uL (4.7-6.1) 05/10/21 WBC 13.34 K/uL (4.8-10.8) H 05/10/21 Hgb 17.6 g/dL (14.0-18.0) 05/10/21 Hct 48.9 % (42-52) 05/10/21 Plt Count 206 K/uL (130-400) 05/10/21 Neutrophils (%) (Auto) 86.2 % 05/10/21 Lymphocytes (%) (Auto) 9.7 % 05/10/21 Monocytes # (Auto) 0.52 K/uL (0.11-0.59) 05/10/21 Eosinophils # (Auto) 0.00 K/uL (0-0.5) 05/10/21 Immature Granulocyte % (Auto) 0.1 % 05/10/21 Neutrophils # (Auto) 11.48 K/uL (1.4-6.5) H 05/10/21 Lymphocytes # (Auto) 1.30 K/uL (1.2-3.4) 05/10/21 Monocytes # (Auto) 0.52 K/uL (0.11-0.59) 05/10/21 Eosinophils # (Auto) 0.00 K/uL (0-0.5) 05/10/21 Basophils # (Auto) 0.02 K/uL (0-0.2) 05/10/21 Immature Granulocyte # (Auto) 0.02 K/uL (0.00-0.02) 05/10/21 Na 137 mmol/L (136-145) 05/10/21 K 4.0 mmol/L (3.5-5.1) 05/10/21 Cl 100 mmol/L (98-107) 05/10/21 CO2 25 mmol/L (21-32) 05/10/21 Anion Gap 12.0 (3-11) H 05/10/21 BUN 15 mg/dl (7-18) 05/10/21 Creatinine 1.08 mg/dl (0.6-1.4) 05/10/21 BUN/Creatinine Ratio 14.0 (10-20) 05/10/21 Glucose Level 326 mg/dl (70-99) H* 05/10/21 Ca 9.2 mg/dl (8.5-10.1) 05/10/21 Total Bilirubin 0.8 mg/dl (0.2-1) 05/10/21 AST/SGOT 168 U/L (15-37) H 05/10/21 ALT/SGPT 54 (12-78) 05/10/21 Alkaline Phosphatase 101 U/L (45-117) 05/10/21 Total Protein 8.7 gm/dl (6.4-8.2) H 05/10/21 Albumin 3.6 gm/dl (3.4-5.0) 05/10/21 Globulin 5.1 gm/dl (2.5-4.0) H 05/10/21 Albumin/Globulin Ratio 0.7 (0.9-2) L 05/10/21 Troponin I 52.900 ng/ml (0-0.045) H* 05/10/21 PTT 23.9 Seconds (21.0-31.0) 05/10/21 INR 1.0 (0.9-1.1) 05/10/21 SARS-CoV-2, RNA, NAAT NEGATIVE (NEGATIVE) 05/10/21 Chest X-Ray 05/10/21 Code Status & VTE Plan Code Status FULL CODE VTE Prophylaxis Plan VTE Prophylaxis will be ordered: Yes Supervising Physician Co-Signing Physician Notes I saw this patient with the physician machine operator assistant, I participated in the history, physical, review of systems, and physical exam. I reviewed the medications with the patient and the physician machine operator assistant and helped reconcile the medications. I helped take a detailed family and social history as well. I formulated the assessment and plan personally with the physician machine operator assistant and went over it with the patient. Physical Exam Gen-AAO x 3, NAD, Afebrile Head-NCAT, EOMI, PERRLA, Anicteric Sclera, No Posterior Pharyngeal Erythema Neck-Supple, No JVD, No Thyromegaly, No Masses, No LAD, No Bruits Lungs-Clear to Auscultation Bilaterally, No Rales, No Rhonchi, No Wheezing, No Crepitus Chest-No S4, +S1, +S2, No S3, No Murmurs, No Rubs, No Gallops, No Ectopy Abdomen-Soft, Bowel Sounds Present, Non Tender, Non Distended, No Hepatomegaly, No Splenomegaly, No Palpable Masses, No Rebound, No Rigidity, No Guarding Musculoskeletal-Full Range of Motion Bilaterally, No CVAT Extremities-No Cyanosis, No Clubbing, No Edema Nuero-Cranial Nerves II-XII grossly intact, Motor WNL, DTRs WNL, Strength WNL, Non Focal Psych-Normal Mood (1) Acute ST segment elevation HI Involved coronary artery: unspecified coronary artery Qualified Code(s): I21.3 - ST elevation (STEMI) myocardial infarction of unspecified site (2) Chest pain Chest pain type: unspecified Qualified Code(s): R07.9 - Chest pain, unspecified
[2021-05-10] MEDS ORDERED: GLUCAGON FOR INJ 1 MG VIAL IM PRN (14:45)
[2021-05-10] MEDS ORDERED: NovoLIN-R BOLUS FROM BAG IV ONE (14:45)
[2021-05-10] MEDS ORDERED: traMADol HCL 50 MG TABLET PO PRN (14:46)
--- NOTE | 2021-05-10 14:54 | Pharmacy Report ---
Pharmacy Glycemic Short Note 2 - Date of Service May 10, 2021 - Glycemic Short BSG Results (Last 24 hours): 05/10/21 05/10/21 05/10/21 11:50 11:59 14:23 Glucose 326 H* POC Glucose 300 H POC Glucose (other) 338 H OUTPATIENT ANTIDIABETIC REGIMEN: * Trulicity 3mg SC weekly * HbA1C: ASSESSMENT: * Pharmacy consulted to assist with glycemic control in this 70 YO gentlemen with a history of DM2 and hyperlipidemia who presented with a STEMI, now s/p emergent cardiac cath w/ post-op hyperglycemia (BSG 300mg/dL). Pre-op BSG >300mg/dL. * DM type 2 diet ordered * Given severe hyperglycemia in a post-op cardiac patient, will initiate an insulin infusion for prompt control. Insulin infusion per hyperglycemia protocol with 15 units of Lantus X 1 to begin now. Likely will not require an insulin infusion for long and Lantus dose given now will help to transition off. * Novolog ACHS per insulin infusion calculator for carb coverage * May transition off of drip once 2 BSGs within goal range, insulin infusion rate less than 1 unit/hr, AND a minimum time of 2 hours has passed since Lantus dose administered. Will need orders for scheduled basal/bolus at that time. PLAN FOR INPATIENT GLYCEMIC CONTROL: * Hold outpatient oral diabetes medications * Basal insulin * Regular insulin infusion * Lantus 15 units SQ X 1 * Bolus insulin * NovoLog per insulin infusion calculator ACHS * Goal Range: Low 110 mg/dL - High 180 mg/dL PLAN FOR DISCHARGE: * TBD
[2021-05-10] MEDS ORDERED: INSULIN GLARGINE SOLOSTAR 100 UNITS/ML 3 ML PEN SC ONE (15:00)
--- NOTE | 2021-05-10 15:00 | Critical Care Consultation ---
Date of Consultation May 10, 2021 Assessment & Plan (1) Acute ST segment elevation MA: (2) Leukocytosis: (3) Diabetic peripheral neuropathy associated with type 2 diabetes mellitus: (4) Diabetes mellitus: Impression: 70-year-old male presenting with acute ST elevation myocardial infarction status post 2 drug-eluting stents in the LAD. He is being observed in the ICU post procedure. Recommendations: 1. ST elevation myocardial infarction: Per cardiology. Patient has been initia jimena on aspirin Lipitor metoprolol Zestril and Brilinta. May need some of his antihypertensive medications uptitrated but we will see how he responds. Follow-up echocardiogram. Additional diuresis per cardiology. 2. HTN: See comments above. 3. Diabetes: Glycemic control per ICU protocol. 4. Leukocytosis: Suspect reactive due to acute myocardial infarction. No signs or symptoms of infection. Continue to follow off antibiotics at the current time. 5. We will follow in the ICU overnight. Anticipate the patient should be able to dismiss from the ICU in the next 24 hours. Will likely need cardiac rehab in the outpatient setting History of Present Illness Attending Physician: Favio Iqbal DO History of Present Illness Asked by cardiology to assist in evaluation management this patient status post ST elevation myocardial infarction with 2 drug-eluting stents in the LAD. History is obtained from review electronic medical record as well as interview the patient. This 70-year-old male with diabetes hypertension hyperlipidemia was brought to the emergency room today with chest pain. EKG performed in route demonstrated ST elevations. He was taken emergently to the Surgical Resident where he was found to have 100% mid LAD occlusion. 2 drug-eluting stents were placed. This significantly reduced his chest pain. He is brought to the ICU post procedurally. Is mildly hypertensive. No nausea vomiting or diarrhea. No syncope or presyncope. Allergies Allergy/AdvReac Type Severity Reaction Status Date / Time adhesive AdvReac Intermediate SKIN Verified 04/12/15 08:45 REACTION WITH BLISTERS acetaminophen [From Percocet] AdvReac Unknown Verified 05/10/21 15:01 esomeprazole [From Nexium] AdvReac Unknown Verified 05/10/21 15:01 Influenza Virus Vaccines AdvReac Unknown Verified 05/10/21 15:01 oxycodone [From Percocet] AdvReac Unknown Verified 05/10/21 15:01 Home Medications Medication Instructions Recorded Confirmed Type dulaglutide 3 mg/0.5 mL 3 mg SUBCUT WK 05/10/21 05/10/21 History subcutaneous pen injector (Trulicity) duloxetine 60 mg capsule,delayed 60 mg PO BID 05/10/21 05/10/21 History release gabapentin 300 mg capsule 300 mg PO DAILY 05/10/21 05/10/21 History mirtazapine 15 mg tablet 15 mg PO HS 05/10/21 05/10/21 History pantoprazole 40 mg tablet,delayed 40 mg PO DAILY 05/10/21 05/10/21 History release tramadol 50 mg tablet 50 mg PO Q6H PRN 05/10/21 05/10/21 History Patient History Medical History Depression Diabetes mellitus GERD (gastroesophageal reflux disease) HLD (hyperlipidemia) Surgical History History of carpal tunnel surgery History of cervical spinal surgery History of lumbar surgery Family History Mother Diabetes Breast cancer Macular degeneration Father Diabetes Heart disease Stroke Social History Smoking Status: Current every day smoker Tobacco Type: Cigarettes packs per day: 0.5; Years Smoked: 20; Hx Alcohol Use: No Hx Substance Use: No Preferred Language: Divehi Communication Ability: Effective Feels Safe at Home: Yes Review of Systems Review of Systems: All systems reviewed & are unremarkable except as noted in Subjective Physical Exam Constitutional: WD/WN, vitals as above Neck: trachea midline, no thyromegaly Respiratory: normal respiratory effort, lungs clear to auscultation Cardiovascular: RRR, no murmur, no edema Gastrointestinal (Abdomen): normal bowel sounds, soft, nontender, no hepatosplenomegaly Musculoskeletal: Extremities: extremities normal to inspection Skin: no rashes, warm and dry Neurologic: Nonfocal exam Lymphatic: no cervical lymphadenopathy Results & Data Results & Data ([facility]) Vital Signs (Past 12 Hours) Vital Signs Pulse Pulse Resp BP BP Pulse Ox 05/10/21 14:10 87 26 H 92 05/10/21 14:00 91 H 19 160/95 H 93 05/10/21 13:50 85 21 93 05/10/21 13:40 90 23 135/80 93 05/10/21 11:57 106 H 20 168/92 H 93 05/10/21 11:52 94 H 20 176/129 H 96 Diagnostic Findings Cardiac catheterization: LM -normal caliber, mildly calcified, luminal irregularities LAD -medium caliber, heavily calcified proximally, 50 to 60% ostial stenosis, diffuse moderate proximal to mid disease prior to 100% mid LAD occlusion. Moderate D1 with 50 to 60% proximal disease Circumflex -dominant, large caliber, 40 to 50% ostial. Large OM1 without significant disease. Mid to distal circumflex and small left PDA without disease. RCA -small, nondominant, no significant disease LVEDP -32 Critical Care Results & Data Vital Signs (Past 12 Hours) Vital Signs Pulse Pulse Resp BP BP Pulse Ox 05/10/21 14:10 87 26 H 92 05/10/21 14:00 91 H 19 160/95 H 93 05/10/21 13:50 85 21 93 05/10/21 13:40 90 23 135/80 93 05/10/21 11:57 106 H 20 168/92 H 93 05/10/21 11:52 94 H 20 176/129 H 96 Lab & Micro Results (Past 24 Hours) RBC 5.14 M/uL (4.7-6.1) 05/10/21 WBC 13.34 K/uL (4.8-10.8) H 05/10/21 Hgb 17.6 g/dL (14.0-18.0) 05/10/21 Hct 48.9 % (42-52) 05/10/21 MCV 95.1 fL (80-100) 05/10/21 MCH 34.2 pg (25-34) H 05/10/21 MCHC 36.0 g/dL (32-36) 05/10/21 RDW Standard Deviation 46.1 fL (36.4-46.3) 05/10/21 RDW Coefficient of Variation 13.3 % (11.5-14.5) 05/10/21 Plt Count 206 K/uL (130-400) 05/10/21 MPV 10.0 fL (7.4-10.4) 05/10/21 Neutrophils (%) (Auto) 86.2 % 05/10/21 Lymphocytes (%) (Auto) 9.7 % 05/10/21 Monocytes # (Auto) 0.52 K/uL (0.11-0.59) 05/10/21 Eosinophils # (Auto) 0.00 K/uL (0-0.5) 05/10/21 Immature Granulocyte % (Auto) 0.1 % 05/10/21 Neutrophils # (Auto) 11.48 K/uL (1.4-6.5) H 05/10/21 Lymphocytes # (Auto) 1.30 K/uL (1.2-3.4) 05/10/21 Monocytes # (Auto) 0.52 K/uL (0.11-0.59) 05/10/21 Eosinophils # (Auto) 0.00 K/uL (0-0.5) 05/10/21 Basophils # (Auto) 0.02 K/uL (0-0.2) 05/10/21 Immature Granulocyte # (Auto) 0.02 K/uL (0.00-0.02) 05/10/21 Na 137 mmol/L (136-145) 05/10/21 K 4.0 mmol/L (3.5-5.1) 05/10/21 Cl 100 mmol/L (98-107) 05/10/21 CO2 25 mmol/L (21-32) 05/10/21 Anion Gap 12.0 (3-11) H 05/10/21 BUN 15 mg/dl (7-18) 05/10/21 Creatinine 1.08 mg/dl (0.6-1.4) 05/10/21 Estimated GFR ( Amer) 81.3 ml/min 05/10/21 Estimated GFR (Non-Af Amer) 70.2 ml/min 05/10/21 BUN/Creatinine Ratio 14.0 (10-20) 05/10/21 Glu 326 mg/dl (70-99) H* 05/10/21 Ca 9.2 mg/dl (8.5-10.1) 05/10/21 Total Bilirubin 0.8 mg/dl (0.2-1) 05/10/21 AST 168 U/L (15-37) H 05/10/21 ALT 54 (12-78) 05/10/21 Alkaline Phosphatase 101 U/L (45-117) 05/10/21 TP 8.7 gm/dl (6.4-8.2) H 05/10/21 Albumin 3.6 gm/dl (3.4-5.0) 05/10/21 Globulin 5.1 gm/dl (2.5-4.0) H 05/10/21 Albumin/Globulin Ratio 0.7 (0.9-2) L 05/10/21 Calcium Level 9.2 mg/dl (8.5-10.1) 05/10/21 11:50 05/10/21 Prothromb Time International Ratio 1.0 (0.9-1.1) 05/10/21 11:50 05/10/21 Diagnostic Findings (Past 24 Hours) Chest X-Ray 05/10/21 11:26 XR chest 1V portable HISTORY: 70 years-old Male Chest Pain acute atypical chest pain COMPARISON: Chest and rib radiographs 08/15/2016 TECHNIQUE: Portable semierect AP view of the chest FINDINGS: The cardiomediastinal and hilar silhouettes are unchanged. There is no pneumothorax, pleural effusion, overt pulmonary edema lobar airspace consolidation. Mild chronic interstitial coarsening. Unchanged blunting of the costophrenic angles. Degenerative changes of the shoulders and spine. Healed chronic right-sided rib fractures. IMPRESSION: No acute process. ACT 112: Negative or not required by law. The above report was generated using voice recognition software. It may contain grammatical, syntax or spelling errors. Electronically signed by: Roshan Briggs M.D. 05/10/2021 12:03 PM I & O Totals 24 Hours 05/09/21 05/10/21 05/11/21 06:59 06:59 06:59 Intake Total 0 / 0 Balance 0 / 0 Cumulative 05/10/21 10:59 thru 05/10/21 13:50 Intake Total 0 Balance 0 RT Ventilator Mngmt (Last Documented) Ventilator Ordered Settings Respiratory Rate 26 05/10/21 14:10 Ventilator - PT Measurements Respiratory Rate 26 Coding Level of Care Code 80245 Inpt Consult Level [address] segment elevation MA I21.3 Involved coronary artery: unspecified coronary artery Leukocytosis D72.829 Diabetic peripheral neuropathy associated with type 2 diabetes mellitus E11.42 Diabetes mellitus E11.9 (1) Acute ST segment elevation MA Involved coronary artery: unspecified coronary artery Qualified Code(s): I21.3 - ST elevation (STEMI) myocardial infarction of unspecified site
[2021-05-10] MEDS ORDERED: lisinopril 5 MG TAB PO ONE (15:13)
[2021-05-10] MEDS: INSULIN REGULAR 250 UNITS in SODIUM CHLORIDE 0.9% 247.5 ML IV SCH (15:17)
[2021-05-10 15:47] LABS: BUN Creatinine Ratio 14.7 (10-20); Calcium 9.1 mg/dl (8.5-10.1); Creatinine Clr Calc Pharmacy 66.8 ml/min; Est GFR (African American) 90.3 ml/min; Est GFR (Non-African American) 77.9 ml/min; Potassium 3.8 mmol/L (3.5-5.1)
[2021-05-10 16:02] LABS: Beta-Hydroxybutyrate 8.27 mg/dl (0.2-2.81)
[2021-05-10] MEDS ORDERED: INSULIN ASPART PER UNIT SC SCH (16:30)
[2021-05-10] MEDS ORDERED: LABETALOL HCL IV 5 MG/ML 20ML IV PRN (16:34)
--- NOTE | 2021-05-10 16:36 | XCELERA ---
[id number]
[2021-05-10] MEDS: INSULIN ASPART PER UNIT SC SCH ×2 (16:58→19:44)
[2021-05-10] MEDS ORDERED: PNEUMOCOCCAL POLYSACCHARIDES 25 MCG/0.5 ML VIAL/SYR IM ONE (18:03)
[2021-05-10] MEDS: ICU ELECTROLYTE REPLACEMENT PROTOCOL SCH (18:19)
[2021-05-10] MEDS ORDERED: PANTOprazole 40 MG TAB PO SCH (18:45)
[2021-05-10] MEDS: MIRTAZAPINE TAB 15 MG TAB PO SCH (19:47)
[2021-05-10] MEDS: DULoxetine HCL 60 MG CAP PO SCH (19:47)
[2021-05-10] MEDS: GABAPENTIN 300 MG CAP PO SCH (19:50)
[2021-05-10] MEDS ORDERED: METOPROLOL TARTRATE 25 MG TAB PO SCH (21:00)
[2021-05-10] MEDS ORDERED: INSULIN GLARGINE SOLOSTAR 100 UNITS/ML 3 ML PEN SC SCH (21:00)
[2021-05-10] MEDS: METOPROLOL TARTRATE 25 MG TAB PO SCH (22:30)
[2021-05-11] MEDS ORDERED: MoRPHine SULFATE 2 MG/ML CARP IV STA ×2 (01:10→06:30)
[2021-05-11 02:13] LABS: Basophils # (auto) 0.02 K/uL (0-0.2); Basophils % (auto) 0.1 %; Eosinophils # (auto) 0.02 K/uL (0-0.5); Eosinophils % (auto) 0.1 %; Hematocrit (blood only) 47.5 % (42-52); Hemoglobin 16.8 g/dL (14.0-18.0); Immature Granulocytes # (auto) 0.05 K/uL (0.00-0.02); Immature Granulocytes % (auto) 0.3 %; Lymphocytes # (auto) 1.57 K/uL (1.2-3.4); Lymphocytes % (auto) 9.3 %; Mean Corpuscular Hemoglobin 34.3 pg (25-34); Mean Corpuscular Hgb Conc 35.4 g/dL (32-36); Mean Corpuscular Volume 96.9 fL (80-100); Mean Platelet Volume 10.3 fL (7.4-10.4); Monocytes # (auto) 1.68 K/uL (0.11-0.59); Neutrophils # (auto) 13.48 K/uL (1.4-6.5); Neutrophils % (auto) 80.2 %; Platelet Count 189 K/uL (130-400); RDW Coefficient of Variation 13.5 % (11.5-14.5); White Blood Count 16.82 K/uL (4.8-10.8)
[2021-05-11 02:31] LABS: BUN Creatinine Ratio 13.8 (10-20); Calcium 8.7 mg/dl (8.5-10.1); Creatinine Clr Calc Pharmacy 63.6 ml/min; Est GFR (African American) 85.1 ml/min; Est GFR (Non-African American) 73.4 ml/min; Potassium 3.4 mmol/L (3.5-5.1)
[2021-05-11 03:21] LABS: Phosphorus 2.4 mg/dl (2.5-4.9)
[2021-05-11 03:36] LABS: Magnesium 1.9 mg/dl (1.8-2.4)
[2021-05-11] MEDS: INSULIN REGULAR 250 UNITS in SODIUM CHLORIDE 0.9% 247.5 ML IV SCH (04:38)
[2021-05-11] MEDS: POTASSIUM CHLORIDE / WTR 10 MEQ/100 ML PLCT IV SCH ×3 (04:41→06:49)
[2021-05-11] MEDS: METOPROLOL TARTRATE 25 MG TAB PO SCH (06:24)
[2021-05-11] MEDS: ICU ELECTROLYTE REPLACEMENT PROTOCOL SCH ×2 (06:25→17:12)
[2021-05-11] MEDS ORDERED: INSULIN GLARGINE SOLOSTAR 100 UNITS/ML 3 ML PEN SC ONE ×2 (07:45→21:00)
[2021-05-11] MEDS: INSULIN ASPART PER UNIT SC SCH ×5 (07:47→21:12)
--- NOTE | 2021-05-11 07:54 | XRay Report ---
XR chest 1V portable HISTORY: Shortness of breath. COMPARISON: Chest 05/10/2021. FINDINGS: Multiple old, healed left-sided rib fractures and an old, healed left clavicle fracture aga in noted. No focal lung consolidations to suggest pneumonia. No pleural effusions. No pneumothorax. T he heart is normal in size. No evidence for pulmonary edema. Stable chronic interstitial thickening. IMPRESSION: No significant change compared to the prior study. No acute process. ACT 112: Negative or not required by law. Electronically signed by: Carrillo Moreira M.D. 05/11/2021 7:53 AM
--- NOTE | 2021-05-11 08:22 | Critical Care Progress Note ---
Date of Service May 11, 2021 Assessment & Plan (1) Leukocytosis: Plan: Impression: 70-year-old male presenting with acute ST elevation myocardial infarction status post 2 drug-eluting stents in the LAD. Has been observed in the ICU overnight post procedures -- no further complications, has remained stable. Neuro No acute neurologic issues Cardiac NSTEMI: Started on ASA, atorvastatin, lisinopril, metoprolol, and ticagrelor per cardiology. Echocardiogram pre-procedure showed EF of 40-45%, apical akinesis, mid anterior, anteroseptal, septal sever hypokinesis to akinesis. Normal RV size and function. No significant valvular pathology. Hypertension management with meds as above. May need to be adjusted going forward. Respiratory Mild SOB: Reported this AM by patient. He is a 1 PPD smoker -- expresses that he is planning to quit after this hospitalization. May benefit from PFTs in outpatient setting. GI Tolerating diet well. Pantoprazole 40mg PO daily for GI protection. Renal/Electrolytes Electrolyte replacement as needed. No other issues., creatinine stable. No concerns at this time. Endo Diabetes: ICU hyperglycemia protocol while ICU status. Further management per primary team. Heme Stable H&H. Leukocytosis: no sings/symptoms of infection, likely reactive in the setting of STEMI. ID As above, no concerns for infection at this point. Lines/IV Access - PIVs intact. DVT Prophylaxis Per cardiology. Currently no chemoppx Dispo: Stable for downgrade from ICU. Critical Care will sign off for now, please reconsult if needed. Thank you for allowing us to be part of this patient's care. Please refer to Dr. Rubio's documentation for any further recommendations. (2) HLD (hyperlipidemia): (3) GERD (gastroesophageal reflux disease): (4) Depression: (5) Acute ST segment elevation PR: Admission and Anticipated Discharge Date Admission Date: May 10, 2021 Supervising Physician Co-Signing Physician Notes Seen and examined. Discussed with FP resident and agree with above. discussed on MDR and with cardiology at bedside. OK to transfer to floor. CC issues resolved. Will sign off. Subjective Patient seen at bedside this AM. Reports feeling much better today than yesterday. Tolerating diet well. No CP, palpitations, n/v, diarrhea, abd pain. Does report mild SOB--reports being a 1PPD smoker for many years. Currently expresses wanting to quit smoking after his hospitalization. Review of Systems Constitutional: no fever and no chills Respiratory: + dyspnea Cardiovascular: no chest pain and no palpitations Neurologic: no localized weakness, no generalized weakness, no loss of sensation, no dizziness and no headache(s) Physical Exam Physical Exam: GENERAL: A&Ox3. NAD. HEENT: EOMI. Moist mucous membranes. CHEST/LUNGS: CTAB A/P. No crackles, wheezes, rales, rhonchi. HEART: RRR. No m/g/r. No carotid bruits. ABDOMEN: NT/ND, soft. BS+ x4 EXTREMITIES: No cyanosis, no clubbing, no edema SKIN: Warm and dry. No rashes or lesions. PSYCHIATRIC: Euthymic affect, no SI, no pressured speech, no hallucinations NEUROLOGIC: CN II-XII grossly intact. No FND. Results & Data Results & Data ([facility]) Vital Signs (Past 12 Hours) Vital Signs Temp Pulse Resp BP Pulse Ox 05/11/21 06:22 88 20 125/75 94 05/11/21 05:29 36.8 C 79 18 118/75 93 05/11/21 04:02 83 24 101/70 90 05/11/21 03:49 78 22 114/61 93 05/11/21 02:00 72 24 108/60 94 05/11/21 01:00 74 22 116/68 96 05/11/21 00:01 36.8 C 73 20 124/79 97 05/10/21 23:00 77 20 112/62 94 05/10/21 22:18 74 16 125/68 95 05/10/21 21:11 73 22 115/69 94 Resident Activity Tracking Resident Involvement: Resident Care Provided Care Provided: Adult Hospital Medicine (1) Acute ST segment elevation PR Involved coronary artery: unspecified coronary artery Qualified Code(s): I21.3 - ST elevation (STEMI) myocardial infarction of unspecified site
[2021-05-11] MEDS: GABAPENTIN 300 MG CAP PO SCH ×2 (08:57→20:56)
[2021-05-11] MEDS: DULoxetine HCL 60 MG CAP PO SCH ×2 (09:00→20:56)
[2021-05-11] MEDS: lisinopril 10 MG TAB PO SCH (09:00)
[2021-05-11] MEDS ORDERED: lisinopril 5 MG TAB PO SCH (09:00)
[2021-05-11] MEDS: TICAGRELOR 90 MG TAB PO SCH ×2 (09:01→20:58)
--- NOTE | 2021-05-11 09:04 | Cardiology Progress Note ---
Date of Service May 11, 2021 Assessment & Plan (1) Acute ST segment elevation MD: Plan: 2. Residual moderate ostial LAD/circumflex disease 3. Ischemic cardiomyopathy- Apical akinesis. 4. Type 2 DM 5. Hypertension 6. Dyslipidemia 7. Brief NSVT, PVCs Chest pain free, troponin peaked No significant congestion on exam No access site complications -- Continue DAPT with ASA/Ticagrelor -- Increase metoprolol to 50mg BID -- Continue current lisinopril, statin -- Start spironolactone 12.5 daily -- Repeat limited echo tomorrow From a cardiac standpoint OK with transfer to telemetry today. Appreciate ICU and hospital medicine team care. Admission and Anticipated Discharge Date Admission Date: May 10, 2021 Subjective No recurrent chest pain. Intermittent dyspnea overnight. Improved this morning. No other new concerns. negative 1600 yesterday. Tele reviewed -- brief episodes NSVT up to 6 beats. Brief episode of AT. Review of Systems Review of Systems: All systems reviewed & are unremarkable except as noted in HPI & below Physical Exam Physical Exam: General: Comfortable HEENT: Sclerae anicteric Lungs: Clear to auscultation bilaterally Cardiac: Regular rate and rhythm, no murmurs. Vascular: 2+ RT radial. No hematoma or ecchymosis. Abdomen: Soft, nontender Extremities: Well perfused, no peripheral edema Neuro: Nonfocal Psych: Alert orient x3, normal affect and mood Results & Data ([facility]) Vital Signs (Past 12 Hours) Vital Signs Temp Pulse Pulse Resp BP Pulse Ox 05/11/21 08:00 75 05/11/21 06:22 88 20 125/75 94 05/11/21 05:29 98.2 F 79 18 118/75 93 05/11/21 04:02 83 24 101/70 90 05/11/21 03:49 78 22 114/61 93 05/11/21 02:00 72 24 108/60 94 05/11/21 01:00 74 22 116/68 96 05/11/21 00:01 98.2 F 73 20 124/79 97 05/10/21 23:00 77 20 112/62 94 05/10/21 22:18 74 16 125/68 95 05/10/21 21:11 73 22 115/69 94 PG Care Time/CCT Total # of Minutes Spent Total Time Spent with Patient: Total time spent is greater than 50% in coordination of care (as documented) at patient's floor/unit and/or counseling patient: Coding Level of Care Code 21082 Subseq Hosp Care Lvl [address] segment elevation MD I21.3 Involved coronary artery: unspecified coronary artery (1) Acute ST segment elevation MD Involved coronary artery: unspecified coronary artery Qualified Code(s): I21.3 - ST elevation (STEMI) myocardial infarction of unspecified site
[2021-05-11 09:11] LABS: Estimated Average Glucose 194 mg/dl; Hemoglobin A1C 8.4 % (4.5-5.6)
[2021-05-11] MEDS: ASPIRIN 81 MG ECTAB PO SCH (09:53)
[2021-05-11] MEDS: ATORVASTATIN 40 MG TAB PO SCH (09:53)
[2021-05-11] MEDS: SPIRONOLACTONE 12.5 MG TAB PO SCH (09:53)
[2021-05-11] MEDS: PANTOprazole 40 MG TAB PO SCH (09:53)
--- NOTE | 2021-05-11 12:04 | Billing Data ---
Date of Service May 11, 2021 Coding Level of Care Code 71814 Subseq Hosp Care Lvl 2
--- NOTE | 2021-05-11 14:37 | Pharmacy Report ---
Pharmacy Glycemic Short Note 2 - Date of Service May 11, 2021 - Glycemic Short BSG Results (Last 24 hours): 05/10/21 05/10/21 05/10/21 15:04 16:49 18:07 Glucose 308 H* POC Glucose 279 H 303 H* 05/10/21 05/10/21 05/10/21 19:25 20:11 21:14 Glucose POC Glucose 333 H* 296 H 286 H 05/10/21 05/10/21 05/10/21 22:19 22:22 23:22 Glucose POC Glucose 306 H* 300 H 302 H* 05/11/21 05/11/21 05/11/21 00:20 01:21 01:59 Glucose 279 H POC Glucose 252 H 275 H 05/11/21 05/11/21 05/11/21 02:20 03:16 04:16 Glucose POC Glucose 265 H 277 H 273 H 05/11/21 05/11/21 05/11/21 05:34 06:26 07:32 Glucose POC Glucose 227 H 219 H 203 H 05/11/21 05/11/21 05/11/21 08:36 09:31 10:58 Glucose POC Glucose 205 H 157 H 110 H 05/11/21 11:58 Glucose POC Glucose 159 H OUTPATIENT ANTIDIABETIC REGIMEN: * Trulicity 3mg SC weekly * HbA1C: 8.4% 05/11 ASSESSMENT: 05/11 * Insulin infusion remained in place overnight, BSGs started coming down with bag change, transitioned off of insulin infusion this morning * Will start novolog parameters between weight based stress of 2 and 3. * Received 15 units of lantus this morning, will place scale on this evening up to an additional 15 units 05/10 * Pharmacy consulted to assist with glycemic control in this 70 YO gentlemen with a history of DM2 and hyperlipidemia who presented with a STEMI, now s/p emergent cardiac cath w/ post-op hyperglycemia (BSG 300mg/dL). Pre-op BSG >300mg/dL. * DM type 2 diet ordered * Given severe hyperglycemia in a post-op cardiac patient, will initiate an insulin infusion for prompt control. Insulin infusion per hyperglycemia protocol with 15 units of Lantus X 1 to begin now. Likely will not require an insulin infusion for long and Lantus dose given now will help to transition off. * Novolog ACHS per insulin infusion calculator for carb coverage * May transition off of drip once 2 BSGs within goal range, insulin infusion rate less than 1 unit/hr, AND a minimum time of 2 hours has passed since Lantus dose administered. Will need orders for scheduled basal/bolus at that time. PLAN FOR INPATIENT GLYCEMIC CONTROL: * Hold outpatient oral diabetes medications * Basal insulin * Lantus 15 units this AM, scale for additional 0-15 units tonight * Bolus insulin * Goal Range: Low 110 mg/dL - High 140 mg/dL * Correction Factor: 25 mg/dl/unit * Carb ratio: 1 unit per 9 gm of CHO consumed PLAN FOR DISCHARGE: * TBD
--- NOTE | 2021-05-11 18:10 | Hospitalist Progress Note ---
Date of Service May 11, 2021 Assessment & Plan (1) Acute ST segment elevation [place]: (2) Chest pain: (3) Diabetes mellitus: Plan: This is a 70-year-old male patient is a 70-year-old male who has significant past medical history of T2DM, hyperlipidemia, HTN, GERD, chronic back pain, history of multiple cervical and lumbar surgeries, peripheral neuropathy who presents to ED secondary to chest pain. Troponin on admission 5210 peaked to greater than 200, now trending down 182 EKG on admission showed anterior ST elevation Status post emergent cardiac cath medium caliber showed diffuse moderate proximal to mid disease prior to 100% mid LAD occlusion. Moderate D1 with 50 to 60% proximal disease s/p Successful PCI of proximal to mid LAD with 2 overlapping drug-eluting stentsby Dr. Guerrier Continue dual-antiplatelet therapy for at least 1 year. Continue beta-leo and high-dose statin Counseling on smoking cessation Outpatient referral for cardiac rehab Echo showed normal LV size, mild concentric LVH, apical akinesis. Mid anterior, anteroseptal, septal severe hypokinesis to akinesis. Ejection fraction 40 to 45% Cardio plan to repeat echo in a.m. Okay from cardio standpoint to transfer to PCU Clinically stable T2DM, uncontrolled with hyperglycemia last a1c 8.2 05/03/21 hold trulicity lantus/novolog per protocol will need better control given CAD, goal < 7 Pharmacy on board for glycemic management Diabetic Neuropathy continue cymbalta and gabapentin DVT ppx: SCD/TEDS for tonight, reassess in a.m. and if no contraindication add chemical prophylaxis Dispo: ICU PCP: Adrien FULL CODE Admission and Anticipated Discharge Date Admission Date: May 10, 2021 Subjective Patient was seen and evaluated for follow-up of chest pain Lying in bed with no acute distress Patient said that he feels fine Denies any chest pain, palpitation, dizziness, shortness of breath. Review of Systems Review of Systems: All systems reviewed & are unremarkable except as noted in Subjective Physical Exam Physical Exam: General- No acute distress Head- atraumatic Eyes- PERRL, EOMI, ENT- oropharynx clear Neck- supple, no JVD Lungs- clear to auscultation Heart- regular rhythm; no murmur Abdomen- normal bowel sounds, soft, nontender Extremities- no calf tenderness, no hematoma in R wrist area Neuro- alert, oriented x 3; PERRL, EOMI; no facial palsy; no dysarthria Skin- warm & dry Results & Data Results & Data ([facility]) Vital Signs (Past 12 Hours) Vital Signs Pulse Pulse Resp BP Pulse Ox 05/11/21 08:00 75 05/11/21 06:22 88 20 125/75 94 (1) Acute ST segment elevation [place] Involved coronary artery: unspecified coronary artery Qualified Code(s): I21.3 - ST elevation (STEMI) myocardial infarction of unspecified site (2) Chest pain Chest pain type: unspecified Qualified Code(s): R07.9 - Chest pain, unspecified
[2021-05-11] MEDS: MIRTAZAPINE TAB 15 MG TAB PO SCH (20:57)
[2021-05-11] MEDS: METOPROLOL TARTRATE 50 MG TAB PO SCH (20:58)
[2021-05-12] MEDS ORDERED: INSULIN ASPART PER UNIT SC SCH (02:00)
[2021-05-12 06:05] LABS: Basophils # (auto) 0.02 K/uL (0-0.2); Basophils % (auto) 0.1 %; Eosinophils # (auto) 0.06 K/uL (0-0.5); Eosinophils % (auto) 0.4 %; Hematocrit (blood only) 47.5 % (42-52); Hemoglobin 16.6 g/dL (14.0-18.0); Immature Granulocytes # (auto) 0.03 K/uL (0.00-0.02); Immature Granulocytes % (auto) 0.2 %; Lymphocytes # (auto) 1.84 K/uL (1.2-3.4); Lymphocytes % (auto) 13.4 %; Mean Corpuscular Hemoglobin 33.7 pg (25-34); Mean Corpuscular Hgb Conc 34.9 g/dL (32-36); Mean Corpuscular Volume 96.3 fL (80-100); Mean Platelet Volume 10.4 fL (7.4-10.4); Monocytes # (auto) 1.45 K/uL (0.11-0.59); Monocytes % (auto) 10.5 %; Neutrophils # (auto) 10.38 K/uL (1.4-6.5); Neutrophils % (auto) 75.4 %; Platelet Count 156 K/uL (130-400); RDW Coefficient of Variation 13.3 % (11.5-14.5); RDW Standard Deviation 46.5 fL (36.4-46.3); Red Blood Count 4.93 M/uL (4.7-6.1); White Blood Count 13.78 K/uL (4.8-10.8)
[2021-05-12 06:51] LABS: BUN Creatinine Ratio 15.1 (10-20); Calcium 8.8 mg/dl (8.5-10.1); Creatinine Clr Calc Pharmacy 69.6 ml/min; Est GFR (African American) 94.9 ml/min; Est GFR (Non-African American) 81.9 ml/min; Magnesium 2.1 mg/dl (1.8-2.4); Phosphorus 2.1 mg/dl (2.5-4.9); Potassium 3.7 mmol/L (3.5-5.1)
[2021-05-12] MEDS: TICAGRELOR 90 MG TAB PO SCH ×2 (07:57→20:14)
[2021-05-12] MEDS: SPIRONOLACTONE 12.5 MG TAB PO SCH (07:57)
[2021-05-12] MEDS: DULoxetine HCL 60 MG CAP PO SCH ×2 (07:58→20:09)
[2021-05-12] MEDS: ATORVASTATIN 40 MG TAB PO SCH (07:58)
[2021-05-12] MEDS: PANTOprazole 40 MG TAB PO SCH (07:58)
[2021-05-12] MEDS: INSULIN GLARGINE SOLOSTAR 100 UNITS/ML 3 ML PEN SC SCH (07:58)
[2021-05-12] MEDS: lisinopril 10 MG TAB PO SCH (07:58)
[2021-05-12] MEDS: METOPROLOL TARTRATE 50 MG TAB PO SCH ×2 (07:58→20:11)
[2021-05-12] MEDS: ASPIRIN 81 MG ECTAB PO SCH (07:58)
[2021-05-12] MEDS: INSULIN ASPART PER UNIT SC SCH ×4 (07:59→20:15)
--- NOTE | 2021-05-12 09:10 | XCELERA ---
[id number]
[2021-05-12] MEDS ORDERED: POTASSIUM PHOS 3 MMOL/1 ML INFUSION IV STA (10:27)
[2021-05-12] MEDS ORDERED: POTASSIUM PHOSPHATE 15 MMOL in SODIUM CHLORIDE 0.9% 250 ML IV ONE (10:45)
[2021-05-12] MEDS: APIXABAN 5 MG TABLET PO SCH ×2 (11:48→20:09)
--- NOTE | 2021-05-12 15:13 | Pharmacy Report ---
Pharmacy Glycemic Short Note 2 - Date of Service May 12, 2021 - Glycemic Short BSG Results (Last 24 hours): 05/11/21 05/11/21 05/12/21 16:21 20:54 02:17 Glucose POC Glucose 179 H 256 H 157 H 05/12/21 05/12/21 05/12/21 05:42 07:22 11:28 Glucose 176 H POC Glucose 178 H 186 H OUTPATIENT ANTIDIABETIC REGIMEN: * Trulicity 3mg SC weekly * HbA1C: 8.4% 05/11 ASSESSMENT: 05/12 * Fasting BSG above goal this morning, will increase lantus * Tightened novolog parameters 05/11 * Insulin infusion remained in place overnight, BSGs started coming down with bag change, transitioned off of insulin infusion this morning * Will start novolog parameters between weight based stress of 2 and 3. * Received 15 units of lantus this morning, will place scale on this evening up to an additional 15 units 05/10 * Pharmacy consulted to assist with glycemic control in this 70 YO gentlemen with a history of DM2 and hyperlipidemia who presented with a STEMI, now s/p emergent cardiac cath w/ post-op hyperglycemia (BSG 300mg/dL). Pre-op BSG >300mg/dL. * DM type 2 diet ordered * Given severe hyperglycemia in a post-op cardiac patient, will initiate an i nsulin infusion for prompt control. Insulin infusion per hyperglycemia protocol with 15 units of Lantus X 1 to begin now. Likely will not require an insulin infusion for long and Lantus dose given now will help to transition off. * Novolog ACHS per insulin infusion calculator for carb coverage * May transition off of drip once 2 BSGs within goal range, insulin infusion rate less than 1 unit/hr, AND a minimum time of 2 hours has passed since Lantus dose administered. Will need orders for scheduled basal/bolus at that time. PLAN FOR INPATIENT GLYCEMIC CONTROL: * Hold outpatient oral diabetes medications * Basal insulin * Lantus 20 units this AM, scale for additional 15-20 units tonight * Bolus insulin * Goal Range: Low 110 mg/dL - High 140 mg/dL * Correction Factor: 25 mg/dl/unit * Carb ratio: 1 unit per 7 gm of CHO consumed PLAN FOR DISCHARGE: * Please see development educator note
--- NOTE | 2021-05-12 17:45 | Cardiology Progress Note ---
Date of Service May 12, 2021 Assessment & Plan (1) Acute ST segment elevation [place]: Plan: 2. Residual moderate ostial LAD/circumflex disease 3. Ischemic cardiomyopathy- Apical akinesis. 4. Type 2 DM 5. Hypertension 6. Dyslipidemia 7. Brief NSVT, PVCs 8. LV apical thrombus Patient looks well. Has remained chest pain free. No signs of heart failure on exam. No access site complications Reviewed repeat echo. Found to have LV apical thrombus. -- Started on eliquis today -- Transition Ticagrelor to clopidogrel. Load with 300mg in AM. -- Continue triple therapy with Eliquis, Clopidogrel, ASA for at least 1 month. -- Repeat echo in 1 month. -- Continue current metoprol 50mg BID --> discharge on Toprol XL 100mg -- Reduce Lisinopril to 5 mg daily -- Continue spironolactone 12.5 daily. From a cardiac standpoint OK with dischage tomorrow AM. Follow-up with me in 2 weeks. Appreciate hospital medicine team care. Admission and Anticipated Discharge Date Admission Date: May 10, 2021 Subjective Feeling well today. No chest pain. No recurrent nighttime dyspnea. Tele reviewed -- brief episode <7beats NSVT overnight Review of Systems Review of Systems: All systems reviewed & are unremarkable except as noted in HPI & below Physical Exam Physical Exam: General: Comfortable HEENT: Sclerae anicteric Lungs: Clear to auscultation bilaterally Cardiac: Regular rate and rhythm, no murmurs. Vascular: 2+ RT radial. No hematoma or ecchymosis. Abdomen: Soft, nontender Extremities: Well perfused, no peripheral edema Neuro: Nonfocal Psych: Alert orient x3, normal affect and mood Results & Data ([facility]) Vital Signs (Past 12 Hours) Vital Signs Temp Pulse Pulse Resp BP BP BP 05/12/21 15:57 99.3 F 82 19 95/60 L 05/12/21 12:04 98.2 F 84 21 111/65 05/12/21 10:00 70 28 H 108/67 05/12/21 09:00 86 30 H 94/53 L 05/12/21 08:01 98.8 F 89 17 104/58 L 05/12/21 08:00 86 19 112/65 05/12/21 07:00 81 19 101/58 L 05/12/21 06:00 79 16 98/53 L Pulse Ox 05/12/21 15:57 93 05/12/21 12:04 94 05/12/21 10:00 05/12/21 09:00 05/12/21 08:01 95 05/12/21 08:00 96 05/12/21 07:00 95 05/12/21 06:00 95 PG Care Time/CCT Total # of Minutes Spent Total Time Spent with Patient: Total time spent is greater than 50% in coordination of care (as documented) at patient's floor/unit and/or counseling patient: Coding Level of Care Code 45293 Subseq Hosp Care Lvl [address] segment elevation [place] I21.3 Involved coronary artery: unspecified coronary artery (1) Acute ST segment elevation [place] Involved coronary artery: unspecified coronary artery Qualified Code(s): I21.3 - ST elevation (STEMI) myocardial infarction of unspecified site
[2021-05-12] MEDS: GABAPENTIN 300 MG CAP PO SCH (20:10)
[2021-05-12] MEDS: MIRTAZAPINE TAB 15 MG TAB PO SCH (20:11)
--- NOTE | 2021-05-12 20:19 | Electrocardiogram Report ---
Test Reason : Blood Pressure : / mmHG Vent. Rate : 093 BPM Atrial Rate : 093 BPM P-R Int : 142 ms QRS Dur : 072 ms QT Int : 350 ms P-R-T Axes : 083 -57 063 degrees QTc Int : 435 ms Poor data quality, interpretation may be adversely affected Sinus rhythm with occasional Premature ventricular complexes Left anterior fascicular block Cannot rule out Inferior infarct , new Anterior infarct Acute Abnormal ECG When compared with ECG of 10-MAY-2016 06:25, Anterior infarct is now Present Confirmed by Justen Tidwell ([id number]) on 05/12/2021 8:19:05 PM Referred By: REFERRED SELF Confirmed By:Justen Tidwell
[2021-05-12] MEDS ORDERED: INSULIN GLARGINE SOLOSTAR 100 UNITS/ML 3 ML PEN SC ONE (21:00)
--- NOTE | 2021-05-12 21:36 | Electrocardiogram Report ---
Test Reason : Blood Pressure : / mmHG Vent. Rate : 079 BPM Atrial Rate : 079 BPM P-R Int : 150 ms QRS Dur : 074 ms QT Int : 396 ms P-R-T Axes : 072 -60 053 degrees QTc Int : 454 ms Poor data quality, interpretation may be adversely affected Normal sinus rhythm Left axis deviation Low voltage QRS Anteroseptal infarct (cited on or before 10-MAY-2021) Abnormal ECG When compared with ECG of 10-MAY-2021 11:54, (unconfirmed) Premature ventricular complexes are no longer Present Serial changes of evolving Anteroseptal infarct Present Confirmed by Justen Tidwell ([id number]) on 05/12/2021 9:36:08 PM Referred By: REFERRED SELF Confirmed By:Justen Tidwell
--- NOTE | 2021-05-12 22:26 | Hospitalist Progress Note ---
Date of Service May 12, 2021 Assessment & Plan (1) Acute ST segment elevation NM: (2) Chest pain: (3) Diabetes mellitus: Plan: This is a 70-year-old male patient is a 70-year-old male who has significant past medical history of T2DM, hyperlipidemia, HTN, GERD, chronic back pain, history of multiple cervical and lumbar surgeries, peripheral neuropathy who presents to ED secondary to chest pain. Troponin on admission 5210 peaked to greater than 200, now trending down 182 EKG on admission showed anterior ST elevation Status post emergent cardiac cath medium caliber showed diffuse moderate proximal to mid disease prior to 100% mid LAD occlusion. Moderate D1 with 50 to 60% proximal disease s/p Successful PCI of proximal to mid LAD with 2 overlapping drug-eluting stentsby Dr. Guerrier Echo showed normal LV size, mild concentric LVH, apical akinesis. Mid anterior, anteroseptal, septal severe hypokinesis to akinesis. Ejection fraction 40 to 45% Repeat echo showed normal LV size, mild concentric LVH, left ventricle ejection fraction 40 to 45%. Apical, mid anterior, anteroseptal, septal akinesis. LV thrombus along the apical inferior segment Continue beta-leo and high-dose statin Case discussed with cardiology recommended to change Ticagrelor to clopidogrel. Load with clopidogrel 300mg in AM. Continue triple therapy with Eliquis, Clopidogrel, ASA for at least 1 month; then after 1 month continue Plavix and aspirin for 1 year Currently on metoprolol 50 mg twice daily will transition to Toprol 100 mg daily on discharge Repeat echo in 1 month as per cardiology Reduce Lisinopril to 5 mg daily Continue spironolactone 12.5 daily. Counseling on smoking cessation Outpatient referral for cardiac rehab Plan to discharge tomorrow Clinically stable LV thrombus Repeat echo showed LV thrombus along the apical inferior segment Started on Eliquis 5 mg twice daily T2DM, uncontrolled with hyperglycemia last a1c 8.2 05/03/21 Will resume on discharge trulicity lantus/novolog per protocol will need better control given CAD, goal < 7 Pharmacy on board for glycemic management Diabetic Neuropathy continue cymbalta and gabapentin DVT ppx: SCD/TEDS for tonight, reassess in a.m. and if no contraindication add chemical prophylaxis Dispo: Plan to discharge home tomorrow PCP: Adrien FULL CODE Admission and Anticipated Discharge Date Admission Date: May 10, 2021 Subjective Patient was seen and evaluated for follow-up of chest pain Lying in bed with no acute distress Patient said that he feels fine Denies any chest pain, palpitation, dizziness, shortness of breath. Review of Systems Review of Systems: All systems reviewed & are unremarkable except as noted in Subjective Physical Exam Physical Exam: General- No acute distress Head- atraumatic Eyes- PERRL, EOMI, ENT- oropharynx clear Neck- supple, no JVD Lungs- clear to auscultation Heart- regular rhythm; no murmur Abdomen- normal bowel sounds, soft, nontender Extremities- no calf tenderness, no hematoma in R wrist area Neuro- alert, oriented x 3; PERRL, EOMI; no facial palsy; no dysarthria Skin- warm & dry Results & Data Results & Data ([facility]) Vital Signs (Past 12 Hours) Vital Signs Temp Pulse Pulse Resp BP BP BP 05/12/21 22:10 77 30 H 05/12/21 22:00 77 24 05/12/21 21:50 76 33 H 05/12/21 21:40 75 34 H 05/12/21 21:30 83 37 H 05/12/21 21:20 75 25 H 05/12/21 21:10 78 28 H 05/12/21 21:00 78 25 H 05/12/21 20:50 80 24 05/12/21 20:40 79 24 05/12/21 20:30 85 19 05/12/21 20:20 86 17 05/12/21 20:10 91 H 20 05/12/21 20:00 37.9 C H 90 85 24 107/58 L 05/12/21 19:50 89 27 H 05/12/21 19:40 88 27 H 05/12/21 19:30 86 32 H 05/12/21 19:20 87 21 05/12/21 19:10 87 35 H 05/12/21 19:00 90 30 H 05/12/21 18:50 93 H 31 H 05/12/21 18:40 89 28 H 05/12/21 18:30 87 23 05/12/21 18:20 90 23 05/12/21 18:15 93 H 21 05/12/21 18:00 87 38 H 05/12/21 17:00 93 H 17 05/12/21 16:00 83 20 152/78 H 12/17/21 15:57 37.4 C 82 19 95/60 L 05/12/21 15:00 78 27 H 05/12/21 14:02 77 34 H 05/12/21 13:00 88 23 05/12/21 12:04 36.8 C 84 21 111/65 05/12/21 12:00 79 25 H 05/12/21 11:00 74 28 H 92/52 L Pulse Ox 05/12/21 22:10 05/12/21 22:00 05/12/21 21:50 05/12/21 21:40 05/12/21 21:30 05/12/21 21:20 05/12/21 21:10 05/12/21 21:00 05/12/21 20:50 05/12/21 20:40 05/12/21 20:30 05/12/21 20:20 05/12/21 20:10 05/12/21 20:00 95 05/12/21 19:50 05/12/21 19:40 05/12/21 19:30 05/12/21 19:20 05/12/21 19:10 05/12/21 19:00 05/12/21 18:50 05/12/21 18:40 05/12/21 18:30 05/12/21 18:20 05/12/21 18:15 05/12/21 18:00 05/12/21 17:00 05/12/21 16:00 05/12/21 15:57 93 05/12/21 15:00 05/12/21 14:02 05/12/21 13:00 79 L 05/12/21 12:04 94 05/12/21 12:00 94 05/12/21 11:00 97 (1) Acute ST segment elevation [place] Involved coronary artery: unspecified coronary artery Qualified Code(s): I21.3 - ST elevation (STEMI) myocardial infarction of unspecified site (2) Chest pain Chest pain type: unspecified Qualified Code(s): R07.9 - Chest pain, unspecified
[2021-05-13 05:50] LABS: BUN Creatinine Ratio 16.3 (10-20); Calcium 8.6 mg/dl (8.5-10.1); Creatinine Clr Calc Pharmacy 72.6 ml/min; Est GFR (Non-African American) 86.3 ml/min; Hematocrit (blood only) 44.5 % (42-52); Hemoglobin 15.3 g/dL (14.0-18.0); Magnesium 2.1 mg/dl (1.8-2.4); Mean Corpuscular Hemoglobin 33.6 pg (25-34); Mean Corpuscular Hgb Conc 34.4 g/dL (32-36); Mean Corpuscular Volume 97.6 fL (80-100); Mean Platelet Volume 10.4 fL (7.4-10.4); Platelet Count 167 K/uL (130-400); Potassium 3.6 mmol/L (3.5-5.1); RDW Coefficient of Variation 13.5 % (11.5-14.5); RDW Standard Deviation 47.9 fL (36.4-46.3); Red Blood Count 4.56 M/uL (4.7-6.1); White Blood Count 10.95 K/uL (4.8-10.8)
[2021-05-13] MEDS: INSULIN GLARGINE SOLOSTAR 100 UNITS/ML 3 ML PEN SC SCH (07:28)
[2021-05-13] MEDS: SPIRONOLACTONE 12.5 MG TAB PO SCH (07:28)
[2021-05-13] MEDS: PANTOprazole 40 MG TAB PO SCH (07:28)
[2021-05-13] MEDS: APIXABAN 5 MG TABLET PO SCH (07:29)
[2021-05-13] MEDS: DULoxetine HCL 60 MG CAP PO SCH (07:29)
[2021-05-13] MEDS: METOPROLOL TARTRATE 50 MG TAB PO SCH (07:29)
[2021-05-13] MEDS: ATORVASTATIN 40 MG TAB PO SCH (07:29)
[2021-05-13] MEDS: INSULIN ASPART PER UNIT SC SCH ×2 (07:29→12:17)
[2021-05-13] MEDS: ASPIRIN 81 MG ECTAB PO SCH (07:29)
[2021-05-13] MEDS ORDERED: POTASSIUM PHOS 3 MMOL/1 ML INFUSION IV STA (07:34)
[2021-05-13] MEDS ORDERED: POTASSIUM PHOSPHATE 21 MMOL in SODIUM CHLORIDE 0.9% 500 ML IV ONE (07:45)
[2021-05-13] MEDS ORDERED: CLOPIDOGREL BISULFATE 300 MG TAB PO ONE (08:00)
[2021-05-13] MEDS ORDERED: lisinopril 5 MG TAB PO SCH (09:00)
--- NOTE | 2021-05-13 11:37 | Cardiology Progress Note ---
Date of Service May 13, 2021 Assessment & Plan (1) Acute ST segment elevation DE: (2) CAD (coronary artery disease): (3) S/P coronary artery stent placement: (4) HLD (hyperlipidemia): (5) Apical mural thrombus following DE: (6) Nonsustained ventricular tachycardia: Plan: ASSESSMENT/PLAN: 1. LAD STEMI: No further angina. Underwent PCI of LAD. Continue aspirin 81 mg and Plavix 75 mg daily. Outlined plan by interventional Cardiology is to continue dual anti-platelet therapy with anticoagulation therapy for at least 1 month, with further plans to follow as an outpatient. Cardiac rehab. Continue beta-leo, RICHARD-inhibitor, spironolactone, and high-intensity statin therapy. 2. CAD s/p LAD PCI: Continue dual anti-platelet therapy as outlined by interventional Cardiology. Continue beta-leo, RICHARD-inhibitor as tolerated. Continue spironolactone. Continue high-intensity statin therapy. Nitroglycerin p.r.n. angina when discharged. 3. Nonsustained ventricular tachycardia: No further arrhythmia. Continue beta- leo as tolerated. 4. Ischemic cardiomyopathy: On discharge, would recommend metoprolol succinate [address] of metoprolol tartrate. Continue RICHARD-inhibitor which was reduced yesterday as he has been having mild hypotension. He is asymptomatic and therefore would continue lisinopril 5 mg daily on discharge. Continue spironolactone. He appears euvolemic. He does not qualify for ICD for primary prevention. 5. Dyslipidemia: Continue high a intensity statin therapy. 6. Apical thrombus: He is on anticoagulation therapy and should continue on discharge. 7. Hypotension: Has been mildly hypotensive but asymptomatic. Would continue with current medications as tolerated. 8. Disposition: Follow-up with Dr. Guerrier in 1-2 weeks in the outpatient setting. Cardiac rehab. If he tolerates ambulation in the hallway, can be discharged home from a Cardiology perspective. Patient care communicated with Dr. Duarte of the primary hospitalist service. Admission and Anticipated Discharge Date Admission Date: May 10, 2021 Subjective Mr. Laura denies angina. He reports mild dyspnea with exertion but has not yet ambulated in the hallway. He denies shortness of breath at rest or orthopnea. He denies syncope, near-syncope, palpitations, edema, or bleeding. Review of systems: As above. Physical Exam Physical Exam: Gen.: No acute distress. Alert and oriented. HEENT: Anicteric sclera. Neck: No JVD. Cardiac: Regular. Normal S1-S2. No murmurs, rubs, or gallops. Pulmonary: Clear to auscultation bilaterally without wheezes, rales, or rhonchi. Abdomen: Soft, nontender, nondistended, with normoactive bowel sounds. No bruits noted. Extremities: 2+ radial pulses bilaterally. Right radial cath site was clean, dry, and intact without erythema or discharge. 2+ posterior tibialis pulses bilaterally. No edema or cyanosis. Psychiatric: Affect appears appropriate. Results & Data ([facility]) Vital Signs (Past 12 Hours) Vital Signs Temp Pulse Pulse Resp BP BP Pulse Ox 05/13/21 08:20 37.1 C 90 16 94/56 L 97 05/13/21 05:37 37.2 C 05/13/21 04:30 78 40 H 05/13/21 04:20 78 26 H 05/13/21 04:10 83 23 05/13/21 04:00 77 31 H 95/53 L 05/13/21 03:00 79 25 H 05/13/21 02:50 76 30 H 05/13/21 02:40 78 31 H 05/13/21 02:30 78 26 H 05/13/21 02:20 76 16 05/13/21 02:10 83 25 H 05/13/21 02:00 78 28 H 05/13/21 01:50 77 28 H 05/13/21 01:40 75 8 L 05/13/21 01:30 79 29 H 05/13/21 01:20 85 16 05/13/21 01:10 88 33 H 05/13/21 01:00 83 28 H 05/13/21 00:50 83 29 H 05/13/21 00:40 80 28 H 05/13/21 00:30 80 29 H 05/13/21 00:20 80 24 05/13/21 00:10 86 29 H 05/13/21 00:00 88 29 H Laboratory Results Laboratory Results - last 24 hr 05/12/21 05/12/21 05/12/21 11:28 16:37 19:57 WBC RBC Hgb Hct MCV MCH MCHC RDW Std Deviation RDW Coeff of Taz Plt Count MPV Sodium Potassium Chloride Carbon Dioxide Anion Gap BUN Creatinine Est Cr Clr Drug Dosing Est GFR ( Amer) Est GFR (Non-Af Amer) BUN/Creatinine Ratio Glucose POC Glucose 186 H 182 H 199 H Calcium Phosphorus Magnesium 05/13/21 05/13/21 05/13/21 05:10 05:10 07:21 WBC 10.95 H RBC 4.56 L Hgb 15.3 Hct 44.5 MCV 97.6 MCH 33.6 MCHC 34.4 RDW Std Deviation 47.9 H RDW Coeff of Taz 13.5 Plt Count 167 MPV 10.4 Sodium 136 Potassium 3.6 Chloride 102 Carbon Dioxide 27 Anion Gap 7.0 BUN 15 Creatinine 0.91 Est Cr Clr Drug Dosing 72.6 Est GFR ( Amer) 100.0 Est GFR (Non-Af Amer) 86.3 BUN/Creatinine Ratio 16.3 Glucose 154 H POC Glucose 224 H Calcium 8.6 Phosphorus 2.0 L Magnesium 2.1 Diagnostic Findings Telemetry personally reviewed: Sinus rhythm. No arrhythmia. Echo 05/12/2021: LVEF 40-45%. Apical LV thrombus and LAD territory akinesis. Cardiac catheterization 05/10/2021: 1. Anterior STEMI/Acute 100% mid LAD occlusion. 2. Elevated intracardiac filling pressure (LVEDP 32). 3. Successful PCI of proximal to mid LAD with 2 overlapping drug-eluting stents (3.0 x 30, 2.75 x 26 mm Phil; postdilated with 3.5 NC). 4. Moderate residual nonculprit CAD. 50% ostial LAD. Jailed D1 with 50% ostial stenosis. 40-50% ostial dominant circumflex Medications Administered Current Inpatient Medications Acetaminophen (Acetaminophen 325 Mg Tab) 650 mg PO Q4H PRN PRN Reason: MILD Pain (Scale 1,2,3) Stop: 06/09/21 13:33 Apixaban (Apixaban 5 Mg Tablet) 5 mg PO BID COUNT INCLUDES THE [facility] Stop: 06/11/21 11:14 Last Admin: 05/13/21 07:29 Dose: 5 mg Documented by: Aspirin (Aspirin 81 Mg Ectab) [facility] Stop: 06/10/21 08:59 Last Admin: 05/13/21 07:29 Dose: 81 mg Documented by: Atorvastatin Calcium (Atorvastatin 40 Mg Tab) 80 [facility] Stop: 06/10/21 08:59 Last Admin: 05/13/21 07:29 Dose: 80 mg Documented by: Clopidogrel Bisulfate (Clopidogrel Bisulfate 75 Mg Tab) 75 mg PO [facility] Stop: 06/13/21 08:59 Dextrose (Dextrose 50% 50 Ml Syringe) 25 - 50 ml IV UD PRN; Protocol PRN Reason: Hypoglycemia Protocol Stop: 06/09/21 14:44 Duloxetine HCl (Duloxetine Hcl 60 Mg Cap) 60 mg PO BID COUNT INCLUDES THE [facility] Stop: 06/09/21 20:59 Last Admin: 05/13/21 07:29 Dose: 60 mg Documented by: Gabapentin (Gabapentin 300 Mg Cap) 300 mg PO [facility] Stop: 06/10/21 08:59 Last Admin: 05/12/21 20:10 Dose: 300 mg Documented by: Glucagon (Glucagon For Inj 1 Mg Vial) 1 mg IM UD PRN; Protocol PRN Reason: Hypoglycemia Protocol Stop: 06/09/21 14:44 Glucose (Glucose 40% Gel 15 Gm Tube) 15 - 30 gm PO UD PRN; Protocol PRN Reason: Hypoglycemia Protocol Stop: 06/09/21 14:44 Glucose (Glucose 10 Tabs/Tube) 4 - 8 tabs PO UD PRN; Protocol PRN Reason: Hypoglycemia Protocol Stop: 06/09/21 14:44 Insulin Aspart (Insulin Aspart Per Unit) 0 units [facility] Stop: 06/10/21 11:29 Last Admin: 05/13/21 07:29 Dose: 10 units Documented by: Insulin Glargine (Insulin Glargine Solostar 100 Units/Ml 3 Ml Pen) 20 units SC [facility] Stop: 06/11/21 08:59 Last Admin: 05/13/21 07:28 Dose: 20 units Documented by: Insulin Glargine (Insulin Glargine Solostar 100 Units/Ml 3 Ml Pen) 0 units SC [facility]; Protocol Stop: 06/12/21 20:59 Labetalol HCl (Labetalol Hcl Iv 5 Mg/Ml 20ml) 10 mg IV Q4 PRN PRN Reason: Hypertension Stop: 06/09/21 16:33 Last Admin: 05/10/21 17:28 Dose: 10 mg Documented by: Lisinopril (Lisinopril 5 Mg Tab) 5 mg PO [facility] Stop: 06/12/21 08:59 Last Admin: 05/13/21 07:28 Dose: 5 mg Documented by: Metoprolol Tartrate (Metoprolol Tartrate 50 Mg Tab) 50 mg PO BID COUNT INCLUDES THE [facility] Stop: 06/10/21 20:59 Last Admin: 05/13/21 07:29 Dose: 50 mg Documented by: Mirtazapine (Mirtazapine Tab 15 Mg Tab) 15 mg PO HS RASHID Stop: 06/09/21 20:59 Last Admin: 05/12/21 20:11 Dose: 15 mg Documented by: Miscellaneous (Carbohydrates For Hypoglycemia ) 15 - 30 gm PO PRN PRN PRN Reason: Hypoglycemia Treatment Stop: 06/09/21 14:44 Miscellaneous Information (Pharmacy Glycemic Mgmt Consult) 1 ea N/A UD PRN PRN Reason: Consult Stop: 06/09/21 14:16 Nitroglycerin (Nitroglycerin Sl 0.4 Mg/Tab Tab) 0.4 mg SL PRN PRN PRN Reason: Chest Pain Stop: 06/09/21 13:33 Last Admin: 05/11/21 03:49 Dose: 0.4 mg Documented by: Ondansetron HCl (Ondansetron Inj 2 Mg/Ml 2 Ml Vial) 4 mg IV Q6H PRN PRN Reason: Nausea And Vomiting Stop: 06/09/21 13:33 Pantoprazole Sodium (Pantoprazole 40 Mg Tab) 40 mg PO DAILY COUNT INCLUDES THE [facility] Stop: 06/10/21 08:59 Last Admin: 05/13/21 07:28 Dose: 40 mg Documented by: Spironolactone (Spironolactone 12.5 Mg Tab) 12.5 mg PO DAILY COUNT INCLUDES THE [facility] Stop: 06/10/21 09:14 Last Admin: 05/13/21 07:28 Dose: 12.5 mg Documented by: Tramadol HCl (Tramadol Hcl 50 Mg Tablet) 50 mg PO Q6H PRN PRN Reason: Pain Stop: 06/09/21 14:45 Last Admin: 05/10/21 20:30 Dose: 50 mg Documented by: PG Care Time/CCT Total # of Minutes Spent Total Time Spent with Patient: Total time spent is greater than 50% in coordination of care (as documented) at patient's floor/unit and/or counseling patient: Coding Level of Care Code 11102 Subseq Hosp Care Lvl [address] segment elevation DE I21.3 Involved coronary artery: unspecified coronary artery CAD (coronary artery disease) I25.10 S/P coronary artery stent placement Z95.5 HLD (hyperlipidemia) E78.5 Apical mural thrombus following DE I23.6 Nonsustained ventricular tachycardia I47.2 (1) Acute ST segment elevation DE Involved coronary artery: unspecified coronary artery Qualified Code(s): I21.3 - ST elevation (STEMI) myocardial infarction of unspecified site
--- NOTE | 2021-05-13 14:32 | Discharge Summary ---
Date of Service May 13, 2021 Admission HPI Per Admitting Provider This is a 70-year-old male patient is a 70-year-old male who has significant past medical history of T2DM, hyperlipidemia, HTN, GERD, chronic back pain, history of multiple cervical and lumbar surgeries, peripheral neuropathy who presents to ED secondary to chest pain. Patient was made a heart alert secondary to EKG findings concerning for acute ST elevation [place]. Patient underwent emergent cardiac catheterization which revealed an acute 100% mid LAD occlusion and elevated intracardiac filling pressure. He underwent successful PCI of the proximal to mid LAD with 2 overlapping drug-eluting stents. He does have evidence of moderate residual nonculprit CAD with evidence of 50% ostial LAD and 40-50% ostial dominant circumflex disease. Patient was loaded with ticagrelor and is recommended to continue on dual antiplatelet therapy for at least 1 year. Due to elevated filling pressures he was also given 20 mg of IV Lasix. Postoperatively patient continues to have mild substernal chest discomfort but otherwise feels much improved. He denies any fever, chills, sweats, lightheadedness, dizziness, shortness of breath, palpitations, nausea, vomiting, abdominal pain. He states his chest pain initially started 2 days ago. Admission Exam Per Admitting Provider Constitutional: WD/WN, vitals as above, NAD, sitting up in bed, pleasant, conversing easily Head: Normocephalic, Atraumatic Eyes: PERRL, conjunctivae normal, anicteric sclerae ENMT: external ear and nose normal, oropharynx normal Neck: trachea midline, no thyromegaly normal visual inspection Respiratory: normal respiratory effort, lungs clear to auscultation, no wheeze, rales, rhonchi. Normal insp/exp effort, no accessory muscle use Cardiovascular: RRR, R radial band, no murmur, no edema Vessels: no JVD or carotid bruit Chest: normal inspection of chest Abdomen: normal bowel sounds, soft, nontender, no hepatosplenomegaly Musculoskeletal: no cyanosis or clubbing, extremities motor strength 5/5 Skin: no rashes, warm and dry normal turgor Neurologic: PERRL, EOMI, accommodation nl, no face palsy, no dysarthria CN's II-XI intact bilaterally and moves all extremities Psychiatric: A+Ox3, euthymic affect Lymphatic: no cervical or axillary lymphadenopathy : deferred Principal Diagnosis Acute ST segment elevation [place]: Chest pain: Diabetes mellitus: LV thrombus T2DM, uncontrolled with hyperglycemia Diabetic Neuropathy Discharge Exam General- No acute distress Head- atraumatic Eyes- PERRL, EOMI, ENT- oropharynx clear Neck- supple, no JVD Lungs- clear to auscultation Heart- regular rhythm; no murmur Abdomen- normal bowel sounds, soft, nontender Extremities- no calf tenderness, no hematoma in R wrist area Neuro- alert, oriented x 3; PERRL, EOMI; no facial palsy; no dysarthria Skin- warm & dry Discharge Data Allergies Allergy/AdvReac Type Severity Reaction Status Date / Time adhesive AdvReac Intermediate SKIN Verified 04/12/15 08:45 REACTION WITH BLISTERS acetaminophen [From Percocet] AdvReac Unknown Verified 05/10/21 15:01 esomeprazole [From Nexium] AdvReac Unknown Verified 05/10/21 15:01 Influenza Virus Vaccines AdvReac Unknown Verified 05/10/21 15:01 oxycodone [From Percocet] AdvReac Unknown Verified 05/10/21 15:01 Consultations 05/10/21 11:59 Consult Cardiac Catheterization Stat ED Decision to Admit Stat 05/10/21 13:41 Consult Cardiac Rehabilitation Routine Consult Lithographic Photographer Apprentice Routine Procedures Performed Operation Date: 05/10/21 11:30 Actual Procedures p Drug Eluting Stent SGl Vessel - Rigoberto Guerrier MD p Cath, Left with Cors and Vent - Rigoberto Guerrier MD s IVUS Coronary Single Vessel - Rigoberto Guerrier MD s Cineradiography w/Routine Exam - Rigoberto Guerrier MD Ordered Studies 05/10/21 11:42 CL Cath Imgs for PACS use only Stat 05/10/21 13:49 CL IVUS Coronary Single Vessel Stat XR chest 1V portable HISTORY: Shortness of breath. COMPARISON: Chest 05/10/2021. FINDINGS: Multiple old, healed left-sided rib fractures and an old, healed left clavicle fracture again noted. No focal lung consolidations to suggest pneumonia. No pleural effusions. No pneumothorax. The heart is normal in size. No evidence for pulmonary edema. Stable chronic interstitial thickening. IMPRESSION: No significant change compared to the prior study. No acute process. ACT 112: Negative or not required by law. Electronically signed by: Carrillo Moreira M.D. 05/11/2021 7:53 AM Dictated:05/11/21 0752 Transcribed: 05/11/21 075 XR chest 1V portable HISTORY: 70 years-old Male Chest Pain acute atypical chest pain COMPARISON: Chest and rib radiographs 08/15/2016 TECHNIQUE: Portable semierect AP view of the chest FINDINGS: The cardiomediastinal and hilar silhouettes are unchanged. There is no pneumothorax, pleural effusion, overt pulmonary edema lobar airspace consolida tion. Mild chronic interstitial coarsening. Unchanged blunting of the costophrenic angles. Degenerative changes of the shoulders and spine. Healed chronic right-sided rib fractures. IMPRESSION: No acute process. ACT 112: Negative or not required by law. The above report was generated using voice recognition software. It may contain grammatical, syntax or spelling errors. Electronically signed by: Roshan Briggs M.D. 05/10/2021 12:03 PM Dictated:05/10/21 1202 Transcribed: 05/10/21 120 Hospital Course (1) Acute ST segment elevation [place]: (2) Chest pain: (3) Diabetes mellitus: This is a 70-year-old male patient is a 70-year-old male who has significant past medical history of T2DM, hyperlipidemia, HTN, GERD, chronic back pain, history of multiple cervical and lumbar surgeries, peripheral neuropathy who presents to ED secondary to chest pain. Troponin on admission 5210 peaked to greater than 200, now trending down 182 EKG on admission showed anterior ST elevation Status post emergent cardiac cath medium caliber showed diffuse moderate proximal to mid disease prior to 100% mid LAD occlusion. Moderate D1 with 50 to 60% proximal disease s/p Successful PCI of proximal to mid LAD with 2 overlapping drug-eluting stentsby Dr. Guerrier Echo showed normal LV size, mild concentric LVH, apical akinesis. Mid anterior, anteroseptal, septal severe hypokinesis to akinesis. Ejection fraction 40 to 45% Repeat echo showed normal LV size, mild concentric LVH, left ventricle ejection fraction 40 to 45%. Apical, mid anterior, anteroseptal, septal akinesis. LV thrombus along the apical inferior segment Continue beta-leo and high-dose statin Case discussed with cardiology recommended to change Ticagrelor to clopidogrel. Load with clopidogrel 300mg in AM. Continue triple therapy with Eliquis, Clopidogrel, ASA for at least 1 month; then after 1 month continue Plavix and aspirin for 1 year Currently on metoprolol 50 mg twice daily will transition to Toprol 100 mg daily on discharge Repeat echo in 1 month as per cardiology Reduce Lisinopril to 5 mg daily Continue spironolactone 12.5 daily. Counseling on smoking cessation Outpatient referral for cardiac rehab Plan to discharge tomorrow Clinically stable LV thrombus Repeat echo showed LV thrombus along the apical inferior segment Started on Eliquis 5 mg twice daily T2DM, uncontrolled with hyperglycemia last a1c 8.2 05/03/21 Will resume on discharge trulicity lantus/novolog per protocol will need better control given CAD, goal < 7 Pharmacy on board for glycemic management Diabetic Neuropathy continue cymbalta and gabapentin DVT ppx: SCD/TEDS for tonight, reassess in a.m. and if no contraindication add chemical prophylaxis Dispo: Plan to discharge home tomorrow PCP: Adrien FULL CODE Total Time Total Time Spent Total Time Spent (In Minutes): 40 minutes Discharge Plan Discharge Items Patient Disposition: Home - Self-Care Reason For Visit: STEMI Discharge Diagnosis: Acute ST segment elevation [place]: Chest pain: Diabetes mellitus: LV thrombus T2DM, uncontrolled with hyperglycemia Diabetic Neuropathy Activity: Resume your previous activity Non-emergency contact: Primary Care Provider Call non-emergency contact if: you have any medication questions Follow-up/Referrals: Rigoberto Guerrier MD [Physician] - (1 to 2 weeks) Tucker Jurado MD [Primary Care Provider] - 05/17/21 9:40 am (Date & Time 05/17/2021 9:40 AM Provider Gianna Hernández, DO Department [facility] ) Diet: Carb Consistent or DM2 and Heart Healthy Addtl Attending Provider Instructions: Follow up with your primary care provider Dr. Hernández ( Dr. Jurado's colleague) on 05/17/2021 @9:40 AM at the [facility] Follow up with cardiology Dr. Guerrier in 1 to 2 weeks Outpatient referral for cardiac rehab Counseling on smoking cessation Continue triple therapy with Eliquis, Clopidogrel, ASA for at least 1 month; then after 1 month continue Plavix and aspirin for 1 year You will need a repeat echo in 1 month as per cardiology Please seek medical attention if you develop any abnormal bleeding such as hematuria and blood in your stool Medication Instructions: Eliquis Your condition is typically treated with an anticoagulant. Anticoagulants will thin your blood to help prevent new clots. You should take her medication exactly as directed. Never skip a dose. Never take a double dose. If you miss a dose, take it as soon as you remember. Avoid NSAIDs (Motrin, Aleve, Naproxen, Ibuprofen, Advil, Meloxicam,..) due to risks of bleeding Call your Primary Care doctor if you experience any of the following: Swelling or Pain in your leg Sudden, continuous pain deep in a muscle Pain that worsens when you are active or when you stand still for a long time Chest Pain Sudden Shortness of Breath Rapid or pounding heart beat Fainting Dizziness Cough with blood or bloody sputum Sweating more than normal Bruises Heavy or uncontrolled bleeding Blood in your urine, stool or vomit Black or tarry stools ACTIVITY RECOMMENDATIONS: Excess manipulation of the wrist should be avoided for the next 24-48 hours. * No lifting over 2 pounds (approximately a 1/2 gallon of milk) with the utilized arm for 24 hours. * No strenuous activity such as bowling or tennis for 3 days. * Keep the site of the procedure covered with a bandage for 24 hours. *You may shower the day after the procedure. Do not take a tub bath or submerge the puncture site in water for the next 3 days. *Do not operate any motorized equipment for 3 days. SPECIAL CARE INSTRUCTIONS: The site may be slightly bruised and sore following your procedure. Should any of the following occur, contact the Dr. who performed your procedure. 1. Redness/inflammation, swelling, chills, or fever, or colored drainage at procedure site within 3-7 days after your procedure. 2. Coldness, discoloration, ongoing numbness, severe pain, or swelling. Expect mild tingling of hand and tenderness at the puncture site for up to three days. If this persists beyond three days, or other symptoms develop, notify the Dr. who performed your procedure. BLEEDING: If the procedure site on your wrist begins to bleed, do not panic 1. Place 1 or 2 fingers firmly just slightly above the insertion site to stop the bleeding. You may be able to feel your pulse as you hold pressure. 2. Lift your finger after 5 minutes to see if the bleeding has stopped. 3. Once the bleeding has stopped, gently wipe the wrist area clean with a bandage. * If the bleeding from your wrist does not stop after 10 minutes, or if there is a large amount of bleeding or spurting, call 911 (do not drive yourself to the hospital). SKIN IRRITATION: * You may experience some redness and/or swelling in the area where radiation was administered. If any skin irritation occurs, please contact your family physician. FOLLOW UP VISIT: 1. Follow up with Dr. Guerrier in 1-2 weeks. Pending Studies at Discharge: No Stand-Alone Forms: [facility] [employer], Smoking Cessation Medications and DC Order Prescriptions: New atorvastatin 40 mg Tablet 80 mg PO QAM 30 Days Qty: 60 RF: 0 clopidogrel 75 mg Tablet 75 mg PO QAM 30 Days Qty: 30 RF: 0 aspirin 81 mg Tablet,Delayed Release (Dr/Ec) 81 mg PO QAM 30 Days Qty: 30 RF: 0 spironolactone 25 mg Tablet 12.5 mg PO DAILY 30 Days Qty: 15 RF: 0 nitroglycerin [Nitrostat] 0.4 mg Tablet, Sublingual 0.4 mg sublingual PRN PRN (Reason: chest pain) Qty: 30 RF: 0 lisinopril [Zestril] 5 mg Tablet 5 mg PO QAM 30 Days Qty: 30 RF: 0 Eliquis 5 mg Tablet 5 mg PO BID 30 Days Qty: 60 RF: 0 metoprolol succinate [Toprol XL] 100 mg tablet extended release 24 hr 100 mg PO DAILY Qty: 30 RF: 0 Continued tramadol 50 mg Tablet 50 mg PO Q6H PRN (Reason: Pain) RF: 0 pantoprazole 40 mg Tablet,Delayed Release (Dr/Ec) 40 mg PO DAILY RF: 0 mirtazapine 15 mg Tablet 15 mg PO HS RF: 0 duloxetine 60 mg Capsule,Delayed Release(Dr/Ec) 60 mg PO BID RF: 0 Trulicity 3 mg/0.5 mL Pen Injector 3 mg SUBCUT WK RF: 0 gabapentin 300 mg Capsule 300 mg PO DAILY RF: 0 Discharge Orders: Discharge Order (Routine); Ordered 05/13/21 Ordered By: Lamonte Shetty/Other Patient Handouts: Managing Type 2 Diabetes, Special Foot Care for Diabetes Admission Data Admit Date/Time: 05/10/21 13:41 Attending Provider: Lamonte Durate Admit Provider: Favio Iqbal Primary Care Provider: Tucker Jurado Other Providers: Rigoberto Guerrier ; Favio Iqbal ; Edwardo Rubio Other Interventions: Discharge Summary Assessment (RN) Last Done: 05/13/21 14:25
[2021-05-13] MEDS ORDERED: INSULIN GLARGINE SOLOSTAR 100 UNITS/ML 3 ML PEN SC SCH (21:00)
[2021-05-14] MEDS ORDERED: CLOPIDOGREL BISULFATE 75 MG TAB PO SCH (09:00)
== END 2021-05-13 16:43 | disposition home or self-care (01) | DRG 247 ==
LOC: ED 11:49 → 1E 11:59 → SUATTDRO 13:41 → 1E 13:41
DX: Z88.8 Allergy status to other drugs, medicaments and biological substances; I25.10 Atherosclerotic heart disease of native coronary artery without angina pectoris; F17.210 Nicotine dependence, cigarettes, uncomplicated; I25.5 Ischemic cardiomyopathy; K21.9 Gastro-esophageal reflux disease without esophagitis; Z91.048 Other nonmedicinal substance allergy status; E11.65 Type 2 diabetes mellitus with hyperglycemia; E78.5 Hyperlipidemia, unspecified; Z88.5 Allergy status to narcotic agent; E11.42 Type 2 diabetes mellitus with diabetic polyneuropathy; I21.09 ST elevation (STEMI) myocardial infarction involving other coronary artery of anterior wall; F32.A Depression, unspecified; Z88.7 Allergy status to serum and vaccine; I10 Essential (primary) hypertension; Z83.3 Family history of diabetes mellitus; Z79.899 Other long term (current) drug therapy; I47.2 Ventricular tachycardia; Z88.6 Allergy status to analgesic agent

== ENCOUNTER 2021-05-15 04:30 | Inpatient (IN) ==
[2021-05-15] MEDS ORDERED: NITROGLYCERIN SL 0.4 MG/TAB TAB SL STA (04:46)
--- NOTE | 2021-05-15 04:48 | Emergency Department Note ---
History of Present Illness General Chief Complaint: Chest Pain Stated Complaint: CHEST PAIN Time Seen by Provider: 05/15/21 04:33 History of Present Illness This 70-year-old who had a stent placed recently presents to the ER complaining of chest pain similar to his prior heart attack from last week Location: Chest pain Quality: Pressure and discomfort Severity: Moderate Duration: This morning Timing: Started while walking to the bathroom Context: Patient was concerned and came in Modifying factors: better with nitroglycerin and rest; worse with activity Patient states he has been taking all his medications since discharge the other day for having his STEMI. 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 Symptoms feel similar. Patient denies fever, chills, abdominal pain, leg pain o r swelling, flulike illness. He quit smoking once he had his heart attack the other day. Home Medications Medication Instructions Recorded Confirmed Type dulaglutide 3 mg/0.5 mL 3 mg SUBCUT WK 05/10/21 05/10/21 History subcutaneous pen injector (Trulicity) duloxetine 60 mg capsule,delayed 60 mg PO BID 05/10/21 05/10/21 History release gabapentin 300 mg capsule 300 mg PO DAILY 05/10/21 05/10/21 History mirtazapine 15 mg tablet 15 mg PO HS 05/10/21 05/10/21 History pantoprazole 40 mg tablet,delayed 40 mg PO DAILY 05/10/21 05/10/21 History release tramadol 50 mg tablet 50 mg PO Q6H PRN 05/10/21 05/10/21 History apixaban 5 mg tablet (Eliquis) 5 mg PO BID 30 Days #60 tab 05/13/21 Rx aspirin 81 mg tablet,delayed 81 mg PO QAM 30 Days #30 tab 05/13/21 Rx release atorvastatin 40 mg tablet 80 mg PO QAM 30 Days #60 tab 05/13/21 Rx clopidogrel 75 mg tablet 75 mg PO QAM 30 Days #30 tab 05/13/21 Rx lisinopril 5 mg tablet (Zestril) 5 mg PO QAM 30 Days #30 tab 05/13/21 Rx metoprolol succinate 100 mg 100 mg PO DAILY #30 tab 05/13/21 Rx tablet,extended release 24 hr (Toprol XL) nitroglycerin 0.4 mg sublingual 0.4 mg SUBLINGUAL PRN PRN #30 tab 05/13/21 Rx tablet (Nitrostat) spironolactone 25 mg tablet 12.5 mg PO DAILY 30 Days #15 tab 05/13/21 Rx Allergies Allergy/AdvReac Type Severity Reaction Status Date / Time adhesive AdvReac Intermediate SKIN Verified 04/12/15 08:45 REACTION WITH BLISTERS acetaminophen [From Percocet] AdvReac Unknown Unknown Verified 05/15/21 09:25 esomeprazole [From Nexium] AdvReac Unknown Unknown Verified 05/15/21 09:25 Influenza Virus Vaccines AdvReac Unknown Unknown Verified 05/15/21 09:25 oxycodone [From Percocet] AdvReac Unknown Unknown Verified 05/15/21 09:25 Past Med/Surg History Medical History Apical mural thrombus following SC CAD (coronary artery disease) Depression Diabetes mellitus GERD (gastroesophageal reflux disease) HLD (hyperlipidemia) Surgical History History of carpal tunnel surgery History of cervical spinal surgery History of lumbar surgery S/P coronary artery stent placement Family History Mother Diabetes Breast cancer Macular degeneration Father Diabetes Heart disease Stroke Social History Smoking Status: Current every day smoker Tobacco Type: Cigarettes packs per day: 0.5; Years Smoked: 20; Cigarettes Per Day: 3; Second Hand Exposure: No; Hx Alcohol Use: Yes Alcohol type: wine Hx Substance Use: No Preferred Language: [place] Communication Ability: Effective Peanut Sheller Required: No Beliefs That Will Affect Care: None marital status: Current Living Situation: Spouse How many Children do You have: 3 Feels Safe at Home: Yes Assistive Devices: Cane and Walker Review of Systems A total of 10 systems reviewed and were otherwise negative Physical Exam Vital Signs Vital Signs - 24 hr 05/15/21 04:56 05/15/21 05:00 05/15/21 05:01 Temperature 37.1 C Temperature Source Oral Pulse Rate 90 Pulse Rate [Bilateral Apical] Pulse Rhythm [Bilateral Apical] Pulse Strength [Bilateral Apical] Respiratory Rate 20 Respiratory Effort / Characteristics Non-Labored Respiratory Depth Normal Respiratory Pattern Blood Pressure 116/71 Blood Pressure [Left Arm] Blood Pressure Mean 86 Blood Pressure Mean [Left Arm] Blood Pressure Position [Left Arm] Pulse Oximetry 93 95 Oxygen Delivery Method Room Air Room Air Room Air Oxygen Flow Rate Sepsis Recent Fever Within 48 Hours No Sepsis New/Unexplained Change in Mental Status N/A Sepsis Action Taken by Nursing No Action Required 05/15/21 05:22 05/15/21 05:44 05/15/21 06:00 Temperature Temperature Source Pulse Rate Pulse Rate [Bilateral Apical] 95 H 83 84 Pulse Rhythm [Bilateral Apical] Pulse Strength [Bilateral Apical] Respiratory Rate 20 20 18 Respiratory Effort / Characteristics Non-Labored Spontaneous Respiratory Depth Normal Respiratory Pattern Blood Pressure Blood Pressure [Left Arm] 115/68 108/64 120/72 Blood Pressure Mean Blood Pressure Mean [Left Arm] 83 78 88 Blood Pressure Position [Left Arm] Pulse Oximetry 98 98 98 Oxygen Delivery Method Nasal Cannula Nasal Cannula Nasal Cannula Oxygen Flow Rate 2 2 2 Sepsis Recent Fever Within 48 Hours Sepsis New/Unexplained Change in Mental Status Sepsis Action Taken by Nursing 05/15/21 06:16 05/15/21 06:55 Temperature Temperature Source Pulse Rate Pulse Rate [Bilateral Apical] 84 90 Pulse Rhythm [Bilateral Apical] Regular Pulse Strength [Bilateral Apical] Normal Respiratory Rate 20 16 Respiratory Effort / Characteristics Non-Labored Spontaneous Respiratory Depth Normal Respiratory Pattern Regular Blood Pressure Blood Pressure [Left Arm] 120/72 119/73 Blood Pressure Mean Blood Pressure Mean [Left Arm] 88 88 Blood Pressure Position [Left Arm] Sitting Pulse Oximetry 98 93 Oxygen Delivery Method Nasal Cannula Room Air Oxygen Flow Rate 2 Sepsis Recent Fever Within 48 Hours Sepsis New/Unexplained Change in Mental Status Sepsis Action Taken by Nursing VITALS: Vitals are noted on the nurse's note and reviewed by myself. Vital signs reviewed. GENERAL: White male, in no acute distress, nondiaphoretic, well-developed well- nourished. SKIN: The skin was without rashes, erythema, edema, or bruising. There is no tenting of the skin. Capillary reflex less than 2 seconds. HEAD: Normocephalic atraumatic. EARS: External auditory canals clear, EYES: Pupils equal round and reactive to light and accommodation. Conjunctivae without injection, sclerae without icterus. Extraocular movements intact. NOSE: Patent, turbinates without inflammation or discharge. MOUTH: Mucous membranes moist. Pharynx without erythema or exudate. Uvula midline. Airway patent. Tongue does not deviate. NECK: Supple without nuchal rigidity. No lymphadenopathy. No thyromegaly. Cervical spine is nontender. No JVD. HEART: Regular rate and rhythm LUNGS: Clear to auscultation bilaterally without wheezes, rales or rhonchi. No retractions or accessory muscle use. ABDOMEN: Positive bowel sounds x 4. Normal tympanic percussion. Soft, nontender, without masses or organomegaly. Kumar sign negative. No guarding or rebound tenderness. No CVA tenderness MUSCULOSKELETAL: No muscle atrophy, erythema, or edema noted. NEURO: Patient was alert and oriented to person place and time. Normal sensation to light and sharp touch. No focal neurological deficits. Course Administered Medications Apixaban (Apixaban 5 Mg Tablet) 5 mg PO BID [facility] Stop: 06/14/21 20:59 Last Admin: 05/15/21 20:47 Dose: 5 mg Documented by: [id number] Aspirin (Aspirin 325 Mg Ectab) 325 mg PO QAM [facility] Stop: 06/14/21 07:04 Last Admin: 05/15/21 09:52 Dose: 325 mg Documented by: [id number] Atorvastatin Calcium ([facility]orvastatin 40 Mg Tab) [facility] [place]: 06/14/21 08:59 Last Admin: 05/15/21 09:52 Dose: 80 mg Documented by: [id number] Clopidogrel Bisulfate (Clopidogrel Bisulfate 75 Mg Tab) 75 mg PO QAM [facility] Stop: 06/14/21 08:59 Last Admin: 05/15/21 11:29 Dose: 75 mg Documented by: [id number] Colchicine (Colchicine 0.6 Mg Tab) 0.6 mg PO BID [facility] Stop: 06/14/21 08:59 Last Admin: 05/15/21 20:46 Dose: 0.6 mg Documented by: [id number] Admin: 05/15/21 09:52 Dose: 0.6 mg Documented by: [id number] Duloxetine HCl (Duloxetine Hcl 60 Mg Cap) 60 mg PO BID [facility] Stop: 06/14/21 08:59 Last Admin: 05/15/21 20:47 Dose: 60 mg Documented by: [id number] Admin: 05/15/21 09:51 Dose: 60 mg Documented by: [id number] Gabapentin (Gabapentin 300 Mg Cap) 300 mg PO DAILY [facility] Stop: 06/14/21 08:59 Last Admin: 05/15/21 09:52 Dose: 300 mg Documented by: [id number] Lorazepam (Ativan) 0.25 mg in 0.5 mls @ 0.5 mls/min IV Q4H PRN PRN Reason: Anxiety Stop: 06/14/21 08:42 Last Admin: 05/15/21 21:02 Dose: 0.5 mls/min Documented by: [id number] Admin: 05/15/21 09:14 Dose: 0.5 mls/min Documented by: [id number] Insulin Aspart (Insulin Aspart Per Unit) 0 units SC ACHS [facility] Stop: 06/14/21 08:42 Last Admin: 05/15/21 20:51 Dose: Not Given Documented by: [id number] Cosigned by: [id number] Admin: 05/15/21 17:14 Dose: 9 units Documented by: [id number] Cosigned by: [id number] Admin: 05/15/21 13:18 Dose: 4 units Documented by: [id number] Cosigned by: [id number] Admin: 05/15/21 10:05 Dose: 12 units Documented by: [id number] Cosigned by: [id number] Insulin Glargine (Insulin Glargine Solostar 100 Units/Ml 3 Ml Pen) 20 units SC BID [facility] Stop: 06/14/21 20:59 Last Admin: 05/15/21 20:51 Dose: 20 units Documented by: [id number] Cosigned by: [id number] Lisinopril (Lisinopril 5 Mg Tab) 5 mg PO QAM [facility] Stop: 06/14/21 08:59 Last Admin: 05/15/21 09:55 Dose: 5 mg Documented by: [id number] Metoprolol Succinate (Metoprolol Succ 50mg Ext Rel Tab) 100 mg PO DAILY [facility] Stop: 06/14/21 08:59 Last Admin: 05/15/21 09:55 Dose: 100 mg Documented by: [id number] Mirtazapine (Mirtazapine Tab 15 Mg Tab) 15 mg PO HS [facility] Stop: 06/14/21 20:59 Last Admin: 05/15/21 20:47 Dose: 15 mg Documented by: [id number] Nicotine (Nicotine 21 Mg/24 Hr Tdsy) 21 mg TD QAM [facility] Stop: 06/14/21 10:29 Last Admin: 05/15/21 11:29 Dose: 21 mg Documented by: [id number] Pantoprazole Sodium (Pantoprazole 40 Mg Tab) 40 mg PO DAILY [facility] Stop: 06/14/21 08:59 Last Admin: 05/15/21 09:51 Dose: 40 mg Documented by: [id number] Tramadol HCl (Tramadol Hcl 50 Mg Tablet) 50 mg PO Q6H PRN PRN Reason: Pain Stop: 06/14/21 07:42 Last Admin: 05/15/21 21:05 Dose: 50 mg Documented by: [id number] Admin: 05/15/21 08:01 Dose: 50 mg Documented by: [id number] Discontinued Medications Aspirin (Aspirin 81 Mg Ectab) 81 mg PO [facility] Stop: 06/14/21 08:59 Last Admin: 05/15/21 11:20 Dose: Not Given Documented by: [id number] Aspirin (Aspirin 81 Mg Ectab) 81 mg PO [facility] Stop: 06/14/21 08:59 Last Admin: 05/15/21 11:20 Dose: Not Given Documented by: [id number] Fentanyl Citrate (Fentanyl Citrate 100 Mcg/2 Ml Vial) Confirm Administered Dose 100 mcg .ROUTE .STK-MED ONE Stop: 05/15/21 06:21 Last Increment: 05/15/21 06:47 Dose: 50 mcg Documented by: [id number] Fentanyl Citrate (Fentanyl Citrate 100 Mcg/2 Ml Vial) 25 mcg IV NOW ONE Stop: 05/15/21 07:47 Last Admin: 05/15/21 08:00 Dose: 25 mcg Documented by: [id number] Fentanyl Citrate (Fentanyl Citrate 100 Mcg/2 Ml Vial) Confirm Administered Dose 100 mcg .ROUTE .STK-MED ONE Stop: 05/15/21 07:54 Last Admin: 05/15/21 08:45 Dose: Not Given Documented by: [id number] Furosemide (Furosemide Inj 20 Mg/2 Ml Vial) 20 mg IV ONE ONE Stop: 05/15/21 07:01 Last Admin: 05/15/21 07:51 Dose: 20 mg Documented by: [id number] Furosemide (Furosemide 40 Mg/4 Ml Vial) Confirm Administered Dose 40 mg IV .STK- MED ONE Stop: 05/15/21 07:47 Last Admin: 05/15/21 08:45 Dose: Not Given Documented by: [id number] Heparin Sodium (Porcine) (Heparin (Porcine) 1000 Unit/Ml 10 Ml (Project Manager Senior Use Only)) Confirm Administered Dose 10,000 units .ROUTE .STK-MED ONE Stop: 05/15/21 06:21 Last Admin: 05/15/21 08:45 Dose: Not Given Documented by: [id number] Heparin Sodium/Dextrose (Heparin Iv Adult Wt-Based Standard *No* Bolus Protocol) 1 ea N/A ONE ONE; Protocol Stop: 05/15/21 04:53 Last Admin: 05/15/21 05:33 Dose: Not Given Documented by: [id number] Heparin Sodium/Sodium Chloride (Heparin In Nss Infusion 1000 Unit/500 Ml (2 U/Ml) Bag) Confirm Administered Dose 3,000 units IV .STK-MED ONE Stop: 05/15/21 06:21 Last Admin: 05/15/21 08:45 Dose: Not Given Documented by: [id number] Heparin Sodium/Dextrose (Heparin Sodium/Dextrose) 25,000 units in 500 mls @ 24 mls/hr IV .[id number] [facility]; Protocol Stop: 06/14/21 05:14 Last Titration: 05/15/21 08:49 Dose: 0 units/hr, 0 mls/hr Documented by: [id number] Cosigned by: [id number] Admin: 05/15/21 05:17 Dose: 1,200 units/hr, 24 mls/hr Documented by: [id number] Cosigned by: [id number] Sodium Chloride (Nss 1000ml) 500 mls @ 999 mls/hr IV .Q31M ONE Stop: 05/15/21 05:59 Last Infusion: 05/15/21 06:14 Dose: 0 mls/hr Documented by: [id number] Admin: 05/15/21 05:44 Dose: 999 mls/hr Documented by: [id number] Insulin Glargine (Insulin Glargine Solostar 100 Units/Ml 3 Ml Pen) 20 units SC NOW STA Stop: 05/15/21 07:08 Last Admin: 05/15/21 09:48 Dose: 20 units Documented by: [id number] Cosigned by: [id number] Midazolam HCl (Midazolam Hcl 1 Mg/Ml 2ml Vial) Confirm Administered Dose 2 mg . ROUTE .STK-MED ONE Stop: 05/15/21 06:21 Last Increment: 05/15/21 06:47 Dose: 1 mg Documented by: [id number] Nicardipine HCl (Nicardipine Hcl Inj 2.5 Mg/Ml 10 Ml Amp) Confirm Administered Dose 25 mg .ROUTE .STK-MED ONE Stop: 05/15/21 06:21 Last Admin: 05/15/21 08:45 Dose: Not Given Documented by: [id number] Nitroglycerin (Nitroglycerin Sl 0.4 Mg/Tab Tab) 0.4 mg SL NOW STA Stop: 05/15/21 04:47 Last Admin: 05/15/21 05:16 Dose: 0.4 mg Documented by: [id number] Nitroglycerin (Nitroglycerin 2% Ointment 30gm Tube) 0.5 inch EXT NOW ONE Stop: 05/15/21 05:25 Last Admin: 05/15/21 05:44 Dose: 0.5 inch Documented by: [id number] Nitroglycerin/Dextrose (Nitroglycerin/D5w 100mcg/Ml 20ml Syr) Confirm Administered Dose 2,000 mcg .ROUTE .STK-MED ONE Stop: 05/15/21 06:23 Last Admin: 05/15/21 08:45 Dose: Not Given Documented by: [id number] Tramadol HCl (Tramadol Hcl 50 Mg Tablet) Confirm Administered Dose 50 mg .ROUTE .STK-MED ONE Stop: 05/15/21 07:58 Last Admin: 05/15/21 08:46 Dose: Not Given Documented by: [id number] Medical Decision Making Medical Records Attestation: I reviewed the patient's medical records. Home Medications Current Medication List: was personally reviewed by me Laboratory Data Attestation: I reviewed the patient's lab results. Result diagrams: 05/15/21 05:14 05/15/21 05:14 Labs: Lab Results 05/15/21 05/15/21 05/15/21 Range/Units 04:38 04:38 05:14 WBC 10.38 9.69 (4.8-10.8) K/uL RBC 4.40 L 4.07 L (4.7-6.1) M/uL Hgb 15.0 13.8 L (14.0-18.0) g/dL Hct 43.7 40.0 L (42-52) % MCV 99.3 98.3 (80-100) fL MCH 34.1 H 33.9 (25-34) pg MCHC 34.3 34.5 (32-36) g/dL RDW Std Deviation 48.8 H 48.1 H (36.4-46.3) fL RDW Coeff of Taz 13.5 13.4 (11.5-14.5) % Plt Count 238 216 (130-400) K/uL MPV 10.9 H 10.3 (7.4-10.4) fL Immature Gran % (Auto) 0.2 0.3 % Neut % (Auto) 62.5 70.8 % Lymph % (Auto) 21.4 13.3 % [place] % (Auto) 11.2 11.1 % Eos % (Auto) 4.3 4.3 % Baso % (Auto) 0.4 0.2 % Neut # (Auto) 6.49 6.85 H (1.4-6.5) K/uL Lymph # (Auto) 2.22 1.29 (1.2-3.4) K/uL [place] # (Auto) 1.16 H 1.08 H (0.11-0.59) K/uL Eos # (Auto) 0.45 0.42 (0-0.5) K/uL Baso # (Auto) 0.04 0.02 (0-0.2) K/uL Immature Gran # (Auto) 0.02 0.03 H (0.00-0.02) K/uL PT (9.0-12.0) Seconds INR (0.9-1.1) APTT (21.0-31.0) Seconds PTT Ratio Sodium 134 L (136-145) mmol/L Potassium (3.5-5.1) mmol/L Chloride 102 (98-107) mmol/L Carbon Dioxide 27 (21-32) mmol/L Anion Gap 5.0 (3-11) BUN 11 (7-18) mg/dl Creatinine 1.09 (0.6-1.4) mg/dl Est Cr Clr Drug Dosing 60.6 ml/min Est GFR ( Amer) 80.4 ml/min Est GFR (Non-Af Amer) 69.4 ml/min BUN/Creatinine Ratio 10.0 (10-20) Glucose 371 H* (70-99) mg/dl Calcium 9.0 (8.5-10.1) mg/dl Magnesium (1.8-2.4) mg/dl Total Bilirubin 0.6 (0.2-1) mg/dl AST (15-37) U/L ALT 45 (12-78) Alkaline Phosphatase 146 H (45-117) U/L Troponin I 15.900 H* (0-0.045) ng/ml Total Protein 8.1 (6.4-8.2) gm/dl Albumin 2.8 L (3.4-5.0) gm/dl Globulin 5.3 H (2.5-4.0) gm/dl Albumin/Globulin Ratio 0.5 L (0.9-2) Lipase 270 (73-393) U/L Beta-Hydroxybutyric Acd (0.2-2.81) mg/dl Urine Color Urine Appearance (Clear) Urine pH (4.5-7.5) Ur Specific [place] (1.000-1.030) Urine Protein (Negative) Urine Glucose (UA) (Negative) Urine Ketones (Negative) Urine Blood (Negative) Urine Nitrite (Negative) Urine Bilirubin (Negative) Urine Urobilinogen (Negative) Ur Leukocyte Esterase (Negative) SARS-CoV-2, RNA, NAAT (NEGATIVE) 05/15/21 05/15/21 05/15/21 Range/Units 05:14 05:14 05:20 WBC (4.8-10.8) K/uL RBC (4.7-6.1) M/uL Hgb (14.0-18.0) g/dL Hct (42-52) % MCV (80-100) fL MCH (25-34) pg MCHC (32-36) g/dL RDW Std Deviation (36.4-46.3) fL RDW Coeff of Taz (11.5-14.5) % Plt Count (130-400) K/uL MPV (7.4-10.4) fL Immature Gran % (Auto) % Neut % (Auto) % Lymph % (Auto) % [place] % (Auto) % Eos % (Auto) % Baso % (Auto) % Neut # (Auto) (1.4-6.5) K/uL Lymph # (Auto) (1.2-3.4) K/uL [place] # (Auto) (0.11-0.59) K/uL Eos # (Auto) (0-0.5) K/uL Baso # (Auto) (0-0.2) K/uL Immature Gran # (Auto) (0.00-0.02) K/uL PT 10.4 (9.0-12.0) Seconds INR 1.0 (0.9-1.1) APTT 26.1 (21.0-31.0) Seconds PTT Ratio 1.0 Sodium Cancelled (136-145) mmol/L Potassium 4.2 (3.5-5.1) mmol/L Chloride Cancelled (98-107) mmol/L Carbon Dioxide Cancelled (21-32) mmol/L Anion Gap Cancelled (3-11) BUN Cancelled (7-18) mg/dl Creatinine Cancelled (0.6-1.4) mg/dl Est Cr Clr Drug Dosing Cancelled ml/min Est GFR ( Amer) Cancelled ml/min Est GFR (Non-Af Amer) Cancelled ml/min BUN/Creatinine Ratio Cancelled (10-20) Glucose Cancelled (70-99) mg/dl Calcium Cancelled (8.5-10.1) mg/dl Magnesium 2.0 (1.8-2.4) mg/dl Total Bilirubin Cancelled (0.2-1) mg/dl AST 39 H (15-37) U/L ALT Cancelled (12-78) Alkaline Phosphatase Cancelled (45-117) U/L Troponin I (0-0.045) ng/ml Total Protein Cancelled (6.4-8.2) gm/dl Albumin Cancelled (3.4-5.0) gm/dl Globulin Cancelled (2.5-4.0) gm/dl Albumin/Globulin Ratio Cancelled (0.9-2) Lipase Cancelled (73-393) U/L Beta-Hydroxybutyric Acd 0.81 (0.2-2.81) mg/dl Urine Color Urine Appearance (Clear) Urine pH (4.5-7.5) Ur Specific [place] (1.000-1.030) Urine Protein (Negative) Urine Glucose (UA) (Negative) Urine Ketones (Negative) Urine Blood (Negative) Urine Nitrite (Negative) Urine Bilirubin (Negative) Urine Urobilinogen (Negative) Ur Leukocyte Esterase (Negative) SARS-CoV-2, RNA, NAAT NEGATIVE (NEGATIVE) 05/15/21 Range/Units 05:40 WBC (4.8-10.8) K/uL RBC (4.7-6.1) M/uL Hgb (14.0-18.0) g/dL Hct (42-52) % MCV (80-100) fL MCH (25-34) pg MCHC (32-36) g/dL RDW Std Deviation (36.4-46.3) fL RDW Coeff of Taz (11.5-14.5) % Plt Count (130-400) K/uL MPV (7.4-10.4) fL Immature Gran % (Auto) % Neut % (Auto) % Lymph % (Auto) % [place] % (Auto) % Eos % (Auto) % Baso % (Auto) % Neut # (Auto) (1.4-6.5) K/uL Lymph # (Auto) (1.2-3.4) K/uL [place] # (Auto) (0.11-0.59) K/uL Eos # (Auto) (0-0.5) K/uL Baso # (Auto) (0-0.2) K/uL Immature Gran # (Auto) (0.00-0.02) K/uL PT (9.0-12.0) Seconds INR (0.9-1.1) APTT (21.0-31.0) Seconds PTT Ratio Sodium (136-145) mmol/L Potassium (3.5-5.1) mmol/L Chloride (98-107) mmol/L Carbon Dioxide (21-32) mmol/L Anion Gap (3-11) BUN (7-18) mg/dl Creatinine (0.6-1.4) mg/dl Est Cr Clr Drug Dosing ml/min Est GFR ( Amer) ml/min Est GFR (Non-Af Amer) ml/min BUN/Creatinine Ratio (10-20) Glucose (70-99) mg/dl Calcium (8.5-10.1) mg/dl Magnesium (1.8-2.4) mg/dl Total Bilirubin (0.2-1) mg/dl AST (15-37) U/L ALT (12-78) Alkaline Phosphatase (45-117) U/L Troponin I (0-0.045) ng/ml Total Protein (6.4-8.2) gm/dl Albumin (3.4-5.0) gm/dl Globulin (2.5-4.0) gm/dl Albumin/Globulin Ratio (0.9-2) Lipase (73-393) U/L Beta-Hydroxybutyric Acd (0.2-2.81) mg/dl Urine Color Yellow Urine Appearance Clear (Clear) Urine pH 5.0 (4.5-7.5) Ur Specific [place] 1.022 (1.000-1.030) Urine Protein Negative (Negative) Urine Glucose (UA) 3+ H (Negative) Urine Ketones Negative (Negative) Urine Blood Negative (Negative) Urine Nitrite Negative (Negative) Urine Bilirubin Negative (Negative) Urine Urobilinogen Negative (Negative) Ur Leukocyte Esterase Negative (Negative) SARS-CoV-2, RNA, NAAT (NEGATIVE) MDM Narrative Prior records/ancillary studies reviewed. Triage Nursing notes reviewed. Additional history obtained from EMS. The patient's history was concerning for chest pain. Differential diagnosis: Etiologies such as cardiac ischemia, aortic dissection, pulmonary embolism, pneumonia, pneumothorax, musculoskeletal, infections, pericarditis, myocarditis, esophageal rupture, gastrointestinal, as well as others were entertained. Physical examination: As above. ER treatment provided: An order was placed for continuous cardiac monitoring. The monitor shows a rate of 50-100 with a sinus rhythm. Nitroglycerin, heparin. EMS gave nitro and aspirin On reassessment the patient felt better. Diagnostic interpretation by me: The electrocardiogram was ordered for chest pain EKG: Normal sinus, normal intervals, ST elevation in V2 through V6, rate of 93. EKG compared to prior EKG with persistent ST elevations. Impression concerns for ACS. Cardiology was immediately consulted. I think arrhythmia is unlikely. EKG shows no interval abnormalities such as QT prolongation or WPW. There are no findings to suggest Brugada syndrome. Cardiac monitoring in the emergency department reveals no tachycardic or bradycardic dysrhythmia. Hypertrophic cardiomyopathy was considered but there are no clear historical elements pointing toward this. EKG is not suggestive. The QRS voltage is not extremely large and there are no suggestive Q waves. The labs revealed Hyperglycemia without DKA. Improving troponin per chart review Imaging studies: Chest x-ray with no acute consolidation, pneumothorax or free air per my interpretation HEART SCORE: Hx: high/mod/low suspicion: 2 ECG: ST depression/nonspecific changes/normal: 2 Age: Greater than 65/45-64/less than 45: 2 Risk factors: (Hypertension, hyperlipidemia, diabetes, coronary disease, tobacco use, cocaine use): 2 Troponin: Greater than 2 times normal limits/1-2 times normal limits/normal: 2 Total: 10 Consultation: A consultation was placed with the supervisor of instruction, Dr. Guerrier and recommends nitroglycerin, heparin and medical admission. He states the EKGs are similar and does not recommend calling a heart alert. The hospitalist was consulted and made aware of cardiology recommendations The case was discussed and diagnostics were reviewed. The patient was evaluated in the ER for further treatment. Exam and history concerning for ACS vs post SC pericarditis. Cardiology and medicine were consulted. Heparin was started. He will be admitted. Cardiology took the patient to the Project Manager Senior. By the evaluation outlined above emergent etiologies such as aortic dissection, pulmonary embolism, pneumonia, pneumothorax, myocarditis, gastrointestinal, as well as others were deemed relatively unlikely. The pt informed about the findings as listed above. All questions were answered and pleased with the treatment. The chart was completed utilizing [employer] Speech voice recognition software. Grammatical errors, random word insertions, pronoun errors, and incomplete sentences are an occassional consequence of this system due to software limitations, ambient noise, and hardware issues. Any formal questions or concerns about the content, text, or information contained within the body of this dictation should be directly addressed to the physician salon shampoo assistant for clarification. Impression & Plan Atypical chest pain, ACS (acute coronary syndrome), Diabetes mellitus with hyperglycemia Discharge Plan Visit Data Chief Complaint: Chest Pain Stated Complaint: CHEST PAIN ED Provider: Maisha Reed ED Midlevel Provider: Aminata Gregorio Discharge Problem: Atypical chest pain, ACS (acute coronary syndrome), Diabetes mellitus with hype rglycemia Patient Disposition: Admitted As Inpatient Condition: Fair Discharge Instructions Interventions: ED Discharge Assessment Last Done: 05/15/21 06:24
[2021-05-15] MEDS ORDERED: Heparin IV Adult Wt-Based Standard *NO* Bolus Protocol ONE (04:52)
[2021-05-15 05:06] LABS: Basophils # (auto) 0.04 K/uL (0-0.2); Basophils % (auto) 0.4 %; Eosinophils # (auto) 0.45 K/uL (0-0.5); Eosinophils % (auto) 4.3 %; Hematocrit (blood only) 43.7 % (42-52); Immature Granulocytes # (auto) 0.02 K/uL (0.00-0.02); Immature Granulocytes % (auto) 0.2 %; Lymphocytes # (auto) 2.22 K/uL (1.2-3.4); Lymphocytes % (auto) 21.4 %; Mean Corpuscular Hemoglobin 34.1 pg (25-34); Mean Corpuscular Hgb Conc 34.3 g/dL (32-36); Mean Corpuscular Volume 99.3 fL (80-100); Mean Platelet Volume 10.9 fL (7.4-10.4); Monocytes # (auto) 1.16 K/uL (0.11-0.59); Monocytes % (auto) 11.2 %; Neutrophils # (auto) 6.49 K/uL (1.4-6.5); Neutrophils % (auto) 62.5 %; Platelet Count 238 K/uL (130-400); RDW Coefficient of Variation 13.5 % (11.5-14.5); RDW Standard Deviation 48.8 fL (36.4-46.3); White Blood Count 10.38 K/uL (4.8-10.8)
[2021-05-15] MEDS ORDERED: HEPARIN SODIUM/DEXTROSE 25,000 UNITS/500 ML BAG IV SCH (05:15)
[2021-05-15] MEDS ORDERED: NITROGLYCERIN 2% OINTMENT 30GM TUBE EXT ONE (05:24)
[2021-05-15 05:27] LABS: Albumin Globulin Ratio 0.5 (0.9-2); Albumin Level 2.8 gm/dl (3.4-5.0); Bilirubin,Total 0.6 mg/dl (0.2-1); Creatinine Clr Calc Pharmacy 60.6 ml/min; Est GFR (African American) 80.4 ml/min; Est GFR (Non-African American) 69.4 ml/min; Globulin 5.3 gm/dl (2.5-4.0); Total Protein 8.1 gm/dl (6.4-8.2); Troponin I 15.9 ng/ml (0-0.045)
[2021-05-15 05:29] LABS: Basophils # (auto) 0.02 K/uL (0-0.2); Basophils % (auto) 0.2 %; Eosinophils # (auto) 0.42 K/uL (0-0.5); Eosinophils % (auto) 4.3 %; Hemoglobin 13.8 g/dL (14.0-18.0); Immature Granulocytes # (auto) 0.03 K/uL (0.00-0.02); Immature Granulocytes % (auto) 0.3 %; Lymphocytes # (auto) 1.29 K/uL (1.2-3.4); Lymphocytes % (auto) 13.3 %; Mean Corpuscular Hemoglobin 33.9 pg (25-34); Mean Corpuscular Hgb Conc 34.5 g/dL (32-36); Mean Corpuscular Volume 98.3 fL (80-100); Mean Platelet Volume 10.3 fL (7.4-10.4); Monocytes # (auto) 1.08 K/uL (0.11-0.59); Monocytes % (auto) 11.1 %; Neutrophils # (auto) 6.85 K/uL (1.4-6.5); Neutrophils % (auto) 70.8 %; Platelet Count 216 K/uL (130-400); RDW Coefficient of Variation 13.4 % (11.5-14.5); RDW Standard Deviation 48.1 fL (36.4-46.3); Red Blood Count 4.07 M/uL (4.7-6.1); White Blood Count 9.69 K/uL (4.8-10.8)
[2021-05-15] MEDS ORDERED: SODIUM CHLORIDE 0.9% 1000ML 500 ML IV ONE (05:29)
[2021-05-15 05:43] LABS: Partial Thromboplastin Time 26.1 Seconds (21.0-31.0); Prothrombin Time 10.4 Seconds (9.0-12.0)
[2021-05-15 06:05] LABS: Beta-Hydroxybutyrate 0.81 mg/dl (0.2-2.81); Potassium 4.2 mmol/L (3.5-5.1)
--- NOTE | 2021-05-15 06:12 | History & Physical Report ---
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 Check ESR, CRP TTE RE elevated troponin Basal insulin, ISS BG goal 1 10-1 40, carb count coverage Nicotine patch as needed DVT prophylaxis. Eliquis Full code Text document was generated using [employer] voice recognition software. It may contain grammatical or spelling errors. Kindly contact undersigned for clarification of any documentation item in question. History of Present Illness Chief Complaint: Chest pain Primary Care Provider: Tucker Jurado MD History obtained from patient, family, and records. Medical history significant for chronic systolic heart failure secondary to ischemic cardiomyopathy (EF 40 to 45%, TTE 2020), CAD status post stent, history LV thrombus on Eliquis, hyperlipidemia, DM2 on oral medications, GERD, mood disorder, ongoing tobacco abuse. Recent confinement May 10[address] for [address] elevation [place] status post successful PCI of proximal to mid LAD with 2 overlapping ERIC. LV thrombus found along apical inferior segment. Patient discharged on aspirin, Plavix, and Eliquis. Patient experience substernal discomfort this morning as he was going to the bathroom similar to chest pain episode from a few days ago although somewhat different with pleuritic nature. No cough, no shortness of breath. Relief with nitroglycerin. Patient brought to the ER for evaluation. Heart alert called after evaluation by intermediate card tender. Medical History as above Surgical History : Carpal tunnel surgery, neck surgery, low back surgery Family History : DM, heart disease Personal/Social history : Few cigarettes a day, occasional EtOH intake, disabled Allergies Allergy/AdvReac Type Severity Reaction Status Date / Time adhesive AdvReac Intermediate SKIN Verified 04/12/15 08:45 REACTION WITH BLISTERS acetaminophen [From Percocet] AdvReac Unknown Verified 05/10/21 15:01 esomeprazole [From Nexium] AdvReac Unknown Verified 05/10/21 15:01 Influenza Virus Vaccines AdvReac Unknown Verified 05/10/21 15:01 oxycodone [From Percocet] AdvReac Unknown Verified 05/10/21 15:01 Home Medications Medication Instructions Recorded Confirmed Type dulaglutide 3 mg/0.5 mL 3 mg SUBCUT WK 05/10/21 05/10/21 History subcutaneous pen injector (Trulicity) duloxetine 60 mg capsule,delayed 60 mg PO BID 05/10/21 05/10/21 History release gabapentin 300 mg capsule 300 mg PO DAILY 05/10/21 05/10/21 History mirtazapine 15 mg tablet 15 mg PO HS 05/10/21 05/10/21 History pantoprazole 40 mg tablet,delayed 40 mg PO DAILY 05/10/21 05/10/21 History release tramadol 50 mg tablet 50 mg PO Q6H PRN 05/10/21 05/10/21 History apixaban 5 mg tablet (Eliquis) 5 mg PO BID 30 Days #60 tab 05/13/21 Rx aspirin 81 mg tablet,delayed 81 mg PO QAM 30 Days #30 tab 05/13/21 Rx release atorvastatin 40 mg tablet 80 mg PO QAM 30 Days #60 tab 05/13/21 Rx clopidogrel 75 mg tablet 75 mg PO QAM 30 Days #30 tab 05/13/21 Rx lisinopril 5 mg tablet (Zestril) 5 mg PO QAM 30 Days #30 tab 05/13/21 Rx metoprolol succinate 100 mg 100 mg PO DAILY #30 tab 05/13/21 Rx tablet,extended release 24 hr (Toprol XL) nitroglycerin 0.4 mg sublingual 0.4 mg SUBLINGUAL PRN PRN #30 tab 05/13/21 Rx tablet (Nitrostat) spironolactone 25 mg tablet 12.5 mg PO DAILY 30 Days #15 tab 05/13/21 Rx Past Med/Surg History Medical History Apical mural thrombus following [place] CAD (coronary artery disease) Depression Diabetes mellitus GERD (gastroesophageal reflux disease) HLD (hyperlipidemia) Surgical History History of carpal tunnel surgery History of cervical spinal surgery History of lumbar surgery S/P coronary artery stent placement Family History Mother Diabetes Breast cancer Macular degeneration Father Diabetes Heart disease Stroke Social History Smoking Status: Current some day smoker Tobacco Type: Cigarettes packs per day: 0.5; Years Smoked: 20; Cigarettes Per Day: 20; Hx Alcohol Use: Yes Hx Substance Use: No Preferred Language: French Communication Ability: Effective Pv Design Engineer Required: No Beliefs That Will Affect Care: None marital status: Current Living Situation: Spouse Feels Safe at Home: Yes Assistive Devices: None Review of Systems Review of Systems: As per HPI, all 10 systems reviewed, all other ROS negative Physical Exam Physical Exam: GENERAL: Comfortable, pleasant, no respiratory distress SKIN: Normal color, warm HEENT: [place] palpebral conjunctivae, no ptosis, moist buccal mucosa NECK : Supple, no tenderness CHEST : CTA, no tenderness HEART : RRR, no obvious murmurs ABDOMEN: Some distention, nontender EXTREMITIES : No LE swelling/tenderness, no other conspicuous deformities noted NEUROLOGIC : Coherent, no facial asymmetry, no other gross focality Results & Data Results & Data ([facility]) Vital Signs (Past 12 Hours) Vital Signs Temp Pulse Pulse Resp BP BP Pulse Ox 05/15/21 05:44 83 20 108/64 98 05/15/21 05:22 95 H 20 115/68 98 05/15/21 05:01 37.1 C 90 20 116/71 95 05/15/21 05:00 93 Laboratory Results Laboratory Results WBC 9.69 K/uL (4.8-10.8) 05/15/21 05:14 RBC 4.07 M/uL (4.7-6.1) L 05/15/21 05:14 Hgb 13.8 g/dL (14.0-18.0) L 05/15/21 05:14 Hct 40.0 % (42-52) L 05/15/21 05:14 MCV 98.3 fL (80-100) 05/15/21 05:14 MCH 33.9 pg (25-34) 05/15/21 05:14 MCHC 34.5 g/dL (32-36) 05/15/21 05:14 RDW Std Deviation 48.1 fL (36.4-46.3) H 05/15/21 05:14 RDW Coeff of Taz 13.4 % (11.5-14.5) 05/15/21 05:14 Plt Count 216 K/uL (130-400) 05/15/21 05:14 MPV 10.3 fL (7.4-10.4) 05/15/21 05:14 Immature Gran % (Auto) 0.3 % 05/15/21 05:14 Neut % (Auto) 70.8 % 05/15/21 05:14 Lymph % (Auto) 13.3 % 05/15/21 05:14 [place] % (Auto) 11.1 % 05/15/21 05:14 Eos % (Auto) 4.3 % 05/15/21 05:14 Baso % (Auto) 0.2 % 05/15/21 05:14 Neut # (Auto) 6.85 K/uL (1.4-6.5) H 05/15/21 05:14 Lymph # (Auto) 1.29 K/uL (1.2-3.4) 05/15/21 05:14 [place] # (Auto) 1.08 K/uL (0.11-0.59) H 05/15/21 05:14 Eos # (Auto) 0.42 K/uL (0-0.5) 05/15/21 05:14 Baso # (Auto) 0.02 K/uL (0-0.2) 05/15/21 05:14 Immature Gran # (Auto) 0.03 K/uL (0.00-0.02) H 05/15/21 05:14 PT 10.4 Seconds (9.0-12.0) 05/15/21 05:14 INR 1.0 (0.9-1.1) 05/15/21 05:14 APTT 26.1 Seconds (21.0-31.0) 05/15/21 05:14 PTT Ratio 1.0 05/15/21 05:14 Sodium Cancelled 05/15/21 05:14 Potassium 4.2 mmol/L (3.5-5.1) 05/15/21 05:14 Chloride Cancelled 05/15/21 05:14 Carbon Dioxide Cancelled 05/15/21 05:14 Anion Gap Cancelled 05/15/21 05:14 BUN Cancelled 05/15/21 05:14 Creatinine Cancelled 05/15/21 05:14 Est Cr Clr Drug Dosing Cancelled 05/15/21 05:14 Est GFR ( Amer) Cancelled 05/15/21 05:14 Est GFR (Non-Af Amer) Cancelled 05/15/21 05:14 BUN/Creatinine Ratio Cancelled 05/15/21 05:14 Glucose Cancelled 05/15/21 05:14 Calcium Cancelled 05/15/21 05:14 Magnesium 2.0 mg/dl (1.8-2.4) 05/15/21 05:14 Total Bilirubin Cancelled 05/15/21 05:14 AST 39 U/L (15-37) H 05/15/21 05:14 ALT Cancelled 05/15/21 05:14 Alkaline Phosphatase Cancelled 05/15/21 05:14 Troponin I 15.900 ng/ml (0-0.045) H* 05/15/21 04:38 Total Protein Cancelled 05/15/21 05:14 Albumin Cancelled 05/15/21 05:14 Globulin Cancelled 05/15/21 05:14 Albumin/Globulin Ratio Cancelled 05/15/21 05:14 Lipase Cancelled 05/15/21 05:14 Beta-Hydroxybutyric Acd 0.81 mg/dl (0.2-2.81) 05/15/21 05:14 SARS-CoV-2, RNA, NAAT NEGATIVE (NEGATIVE) 05/15/21 05:20 Diagnostic Findings Chest x-ray as per my interpretation atelectasis EKG as per my interpretation : Rate 95, NSR, LAD, LAFB, T wave flattening lateral leads J-point elevation anterior leads, low voltage
[2021-05-15] MEDS ORDERED: fentaNYL citrate 100 MCG/2 ML VIAL ONE ×2 (06:20→07:53)
[2021-05-15] MEDS ORDERED: HEPARIN (PORCINE) 1000 UNIT/ML 10 ML (CATH LAB USE ONLY) ONE (06:20)
[2021-05-15] MEDS ORDERED: MIDAZOLAM HCL 1 MG/ML 2ML VIAL ONE (06:20)
[2021-05-15] MEDS ORDERED: niCARdipine HCL INJ 2.5 MG/ML 10 ML AMP ONE (06:20)
--- NOTE | 2021-05-15 06:21 | Cardiology Consultation ---
Date of Consultation May 15, 2021 Assessment & Plan (1) Chest pain: 2. Recent anterior STEMIpost ERIC x2 to LAD 3. Residual moderate ostial LAD/circumflex disease 4. Ischemic cardiomyopathy- Apical akinesis. 5. LV apical thrombus 6. Hypertension 7. Type 2 diabetes Patient with acute onset chest discomfort, shortness of breath reminiscent of prior symptoms with IL. ECG again shows anterior ST elevation but improved from post PCI and troponin elevated but down from 3 days ago. Suspect symptoms may be related to post [place] pericarditis but cannot rule out stent thrombosis particularly with residual ostial LAD disease. Discussed with patient and daughter and will plan to repeat cardiac catheterization now. Further recommendations pending findings. History of Present Illness History of Present Illness Mr. Laura is a 70-year-old man recently treated for anterior STEMI with 2 drug- eluting stents to his LAD who represented to the ED this morning with acute onset chest pain, shortness of breath. Patient was admitted 05/10 to 05/13/2021. Largely chest pain-free post PCI. Had residual nonculprit disease with a 50% ostial LAD, 50% ostial stenosis of jailed D1 and 40% ostial circumflex stenosis. Troponin peaked at greater than 200. Echo showed an EF of 40 to 45% with apical akinesis and an LV thrombus. Discharged on triple therapy. Yesterday felt well with no recurrent chest pain. This morning got up to go to the bathroom and developed acute onset shortness of breath with left-sided chest pain radiating to her shoulder. Pain reminiscent of what he had with his IL but not severe. Pain partially worsened with deep breath. Some relieved with sublingual nitroglycerin, topical nitrates in ED but pain persists. ECG showed sinus rhythm with anterior Q waves and ST elevations reduced from most recent ECG on 05/11. Initial troponin 15.9. Chest x-ray unremarkable. Other medical issues include type 2 diabetes on oral therapy complicated by peripheral neuropathy, active tobacco abuse until IL, dyslipidemia, GERD. Allergies Allergy/AdvReac Type Severity Reaction Status Date / Time adhesive AdvReac Intermediate SKIN Verified 04/12/15 08:45 REACTION WITH BLISTERS acetaminophen [From Percocet] AdvReac Unknown Verified 05/10/21 15:01 esomeprazole [From Nexium] AdvReac Unknown Verified 05/10/21 15:01 Influenza Virus Vaccines AdvReac Unknown Verified 05/10/21 15:01 oxycodone [From Percocet] AdvReac Unknown Verified 05/10/21 15:01 Home Medications Medication Instructions Recorded Confirmed Type dulaglutide 3 mg/0.5 mL 3 mg SUBCUT WK 05/10/21 05/10/21 History subcutaneous pen injector (Trulicity) duloxetine 60 mg capsule,delayed 60 mg PO BID 05/10/21 05/10/21 History release gabapentin 300 mg capsule 300 mg PO DAILY 05/10/21 05/10/21 History mirtazapine 15 mg tablet 15 mg PO HS 05/10/21 05/10/21 History pantoprazole 40 mg tablet,delayed 40 mg PO DAILY 05/10/21 05/10/21 History release tramadol 50 mg tablet 50 mg PO Q6H PRN 05/10/21 05/10/21 History apixaban 5 mg tablet (Eliquis) 5 mg PO BID 30 Days #60 tab 05/13/21 Rx aspirin 81 mg tablet,delayed 81 mg PO QAM 30 Days #30 tab 05/13/21 Rx release atorvastatin 40 mg tablet 80 mg PO QAM 30 Days #60 tab 05/13/21 Rx clopidogrel 75 mg tablet 75 mg PO QAM 30 Days #30 tab 05/13/21 Rx lisinopril 5 mg tablet (Zestril) 5 mg PO QAM 30 Days #30 tab 05/13/21 Rx metoprolol succinate 100 mg 100 mg PO DAILY #30 tab 05/13/21 Rx tablet,extended release 24 hr (Toprol XL) nitroglycerin 0.4 mg sublingual 0.4 mg SUBLINGUAL PRN PRN #30 tab 05/13/21 Rx tablet (Nitrostat) spironolactone 25 mg tablet 12.5 mg PO DAILY 30 Days #15 tab 05/13/21 Rx Patient History Medical History Apical mural thrombus following [place] CAD (coronary artery disease) Depression Diabetes mellitus GERD (gastroesophageal reflux disease) HLD (hyperlipidemia) Surgical History History of carpal tunnel surgery History of cervical spinal surgery History of lumbar surgery S/P coronary artery stent placement Family History Mother Diabetes Breast cancer Macular degeneration Father Diabetes Heart disease Stroke Social History Smoking Status: Current some day smoker Tobacco Type: Cigarettes packs per day: 0.5; Years Smoked: 20; Cigarettes Per Day: 20; Hx Alcohol Use: Yes Hx Substance Use: No Preferred Language: Serbian Communication Ability: Effective Manager Dish Required: No Beliefs That Will Affect Care: None marital status: Current Living Situation: Spouse Feels Safe at Home: Yes Assistive Devices: None Review of Systems Review of Systems: All systems reviewed & are unremarkable except as noted in HPI & below Physical Exam Physical Exam: General: Mildly uncomfortable HEENT: Sclerae anicteric Lungs: Clear to auscultation bilaterally, no crackles or wheezes Cardiac: Regular rate and rhythm no murmurs, no clear rubs Vascular: 2+ radial bilaterally Abdomen: Soft, nontender Extremities: Well perfused, no peripheral edema Neuro: Nonfocal Psych: Alert orient x3, normal affect and mood Results & Data ([facility]) Vital Signs (Past 12 Hours) Vital Signs Temp Pulse Pulse Resp BP BP Pulse Ox 05/15/21 05:44 83 20 108/64 98 05/15/21 05:22 95 H 20 115/68 98 05/15/21 05:01 98.8 F 90 20 116/71 95 05/15/21 05:00 93 PG Care Time/CCT Total # of Minutes Spent Total Time Spent with Patient: Total time spent is greater than 50% in coordination of care (as documented) at patient's floor/unit and/or counseling patient: Coding Level of Care Code 64930 Initial Inpt Care Lvl 3 Diagnoses Chest pain R07.9 Chest pain type: unspecified (1) Chest pain Chest pain type: unspecified Qualified Code(s): R07.9 - Chest pain, unspecified
[2021-05-15] MEDS ORDERED: NITROGLYCERIN/D5W 100MCG/ML 20ML SYR ONE (06:22)
--- NOTE | 2021-05-15 06:22 | Pre Anesthesia Assessment ---
Date of Service May 15, 2021 Pre Sedation Assessment Vital Signs Temp Pulse Pulse Resp BP BP Pulse Ox 05/15/21 06:16 84 20 120/72 98 05/15/21 06:00 84 18 120/72 98 05/15/21 05:44 83 20 108/64 98 05/15/21 05:22 95 H 20 115/68 98 05/15/21 05:01 98.8 F 90 20 116/71 95 05/15/21 05:00 93 Cardiovascular RRR, no murmur, no edema Respiratory normal respiratory effort, lungs clear to auscultation Pre-Sedation Airway Assessment Smoking Status: Current some day smoker Hx Sleep Apnea: No Hx Difficult Intubation: No Short, Thick Neck: No Thyromental Distance: > or= 3.5 Finger Breadths Oral Cavity: + WNL Mallampati Class: III ASA: ASA3 Procedure Planning Contraindications for Sedation: none Current Medications Reviewed: Yes Notes The planned sedation has been discussed with the patient. Informed Consent was obtained. I have identified the patient, determined the appropriateness of sedation and have assessed the patient immediately prior to the procedure. All medicine(s) and interventions are by my order.
[2021-05-15] MEDS ORDERED: FUROSEMIDE INJ 20 MG/2 ML VIAL IV ONE (07:00)
[2021-05-15] MEDS ORDERED: COLCHICINE 0.6 MG TAB PO SCH (07:05)
[2021-05-15] MEDS ORDERED: INSULIN GLARGINE SOLOSTAR 100 UNITS/ML 3 ML PEN SC STA (07:07)
--- NOTE | 2021-05-15 07:14 | Cardiac Catheterization ---
[facility] Data: Seismic Prospecting Observer Cardiac Status Clinical evaluation leading to the procedure CAD Presenation: Non STEMI Anginal Classification: CCS IV Heart Failure: NYHA Class: CCS IV Cardiogenic Shock within 24 Hours: No Cardiac Arrest within 24 Hours: No Imaging Studies Past 6 Months: Yes Stress Studies Past 6 Months: No Diagnostic Physicians Name: Lam Guerrier MD Status: Elective Closure Device Percutaneous Entry Location: Radial Closure Device: Radial Band Recommendations: Medical Therapy and/or Counseling Intraprocedure Events Significant Disection: No Perforation: No Cardiac Cath Procedure Full Procedure Date May 15, 2021 Pre-Procedure Diagnosis Pre-Procedure Diagnosis: Non STEMI AUC Score AUC Score: 7 Post-Procedure Diagnosis Post-Procedure Diagnosis: Moderate CAD Procedure(s) Performed Procedure(s) Performed: Coronary Angiography Prepress Specialist Lam Guerrier MD Coater Slate(s) [place] Estimated Blood Loss Estimated Blood Loss: 5 Medication(s) Medication(s): Fentanyl, Lidocaine 1%, Nicardipine, Nitroglycerin and Versed Summary of Findings Indication: Recent anterior CO post PCI with 2 ERIC to LAD. Known residual moderate ostial LAD/circumflex disease. Here with recurrent acute chest pain. Access: 6 Fr right radial artery Catheters: [place] Findings: LM -normal caliber, mildly calcified, luminal irregularities LAD -medium caliber, 50 to 60% ostial stenosis, widely patent proximal to mid stents, 50% latemid stenosis. Moderate D1 with 50 to 60% proximal disease. OSCAR-3 flow throughout LAD/diagonal. Circumflex -dominant, large caliber, 40 to 50% ostial. Large OM1 without significant disease. Mid to distal circumflex and small left PDA without disease. RCA -small, nondominant, no significant disease Arterial Closure: TR band Summary: 1. Widely patent LAD stents with OSCAR-3 flow throughout coronary arteries. 2. Moderate nonobstructive residual multivessel CAD 50 to 60% ostial LAD, 50% latemid LAD. 50% ostial jailed D1 40% ostial circumflex Recommendations: Suspect symptoms in part related to post [place] pericarditis. May have some contribution from mild acute heart failure. Continue clopidogrel, resume Eliquis tonight. Start colchicine, increase aspirin to 325 IV Lasix now Continue PPI Admit to PCU for further monitoring Hemodynamics Rest Ao:: 81/47/62 Final Ao: 103/61/106 LV: -- Recommendations Recommendations: Medical Therapy and/or Counseling Specimens Specimens: None Radiation Exposure (mGy) 550 Contrast (mls) 48 Fluids (cc crystalloids) Fluids (cc crystalloids): 31 Drains Drains: None Anesthesia Moderate [id number] Procedural Complication(s) None Disposition PCU I attest to the content of the Intraoperative Record and any orders documented therein. Any exceptions are noted below. [facility] Card Cath Procedure Codes Cardiac Catheterization Procedure 1: Cardiovascular Cath Procedures: 02270 Coronaries Moderate Sedation Procedure 1: Sedation/Anesthesia: 61757 Mod Sedation by the same physician;Init15 Min Child Age 5 & Up PG Care Time/CCT Total # of Minutes Spent Total Time Spent with Patient: Total time spent is greater than 50% in coordination of care (as documented) at patient's floor/unit and/or counseling patient:
--- NOTE | 2021-05-15 07:31 | XRay Report ---
XR chest 1V portable CLINICAL HISTORY: Atypical chest pain TECHNIQUE: Single frontal radiograph of the chest was obtained. Comparison: Comparison is made to chest one view 05/11/2021 FINDINGS: No lines and tubes are seen. The cardiomediastinal silhouette is normal. The lungs are clear. No evid ence of pleural effusion or pneumothorax. Old healed left clavicle fracture and left rib fractures no jimena. IMPRESSION: No acute chest disease. ACT 112: Negative or not required by law. Electronically signed by: Eamon Orozco M.D. 05/15/2021 7:30 AM
[2021-05-15] MEDS ORDERED: fentaNYL citrate 100 MCG/2 ML VIAL IV ONE (07:46)
[2021-05-15] MEDS ORDERED: FUROSEMIDE 40 MG/4 ML VIAL IV ONE (07:46)
[2021-05-15] MEDS ORDERED: traMADol HCL 50 MG TABLET ONE (07:57)
[2021-05-15] MEDS: traMADol HCL 50 MG TABLET PO PRN ×2 (08:01→21:05)
[2021-05-15] MEDS ORDERED: GLUCOSE 10 TABS/TUBE PO PRN (08:43)
[2021-05-15] MEDS ORDERED: traMADol HCL 50 MG TABLET PO PRN (08:43)
[2021-05-15] MEDS ORDERED: GLUCAGON FOR INJ 1 MG VIAL SQ PRN (08:43)
[2021-05-15] MEDS ORDERED: MoRPHine SULFATE 4 MG/ML 1 ML CARP\\VIAL IV PRN (08:43)
[2021-05-15] MEDS ORDERED: CARBOHYDRATES FOR HYPOGLYCEMIA PO PRN (08:43)
[2021-05-15] MEDS ORDERED: PROMETHAZINE HCL 12.5 MG in SODIUM CHLORIDE 0.9% 50 ML IV PRN (08:43)
[2021-05-15] MEDS ORDERED: DEXTROSE 50% 50 ML SYRINGE IV PRN (08:43)
[2021-05-15] MEDS ORDERED: GLUCOSE 40% GEL 15 GM TUBE PO PRN (08:43)
[2021-05-15] MEDS ORDERED: ASPIRIN 81 MG ECTAB PO SCH ×2 (09:00)
--- NOTE | 2021-05-15 09:12 | XCELERA ---
[id number] \\[id number]
[2021-05-15] MEDS: LORazepam 0.25 MG/0.5 ML VIAL IV PRN ×2 (09:14→21:02)
[2021-05-15] MEDS: PANTOprazole 40 MG TAB PO SCH (09:51)
[2021-05-15] MEDS: DULoxetine HCL 60 MG CAP PO SCH ×2 (09:51→20:47)
[2021-05-15] MEDS: GABAPENTIN 300 MG CAP PO SCH (09:52)
[2021-05-15] MEDS: ASPIRIN 325 MG ECTAB PO SCH (09:52)
[2021-05-15] MEDS: ATORVASTATIN 40 MG TAB PO SCH (09:52)
[2021-05-15] MEDS: COLCHICINE 0.6 MG TAB PO SCH ×2 (09:52→20:46)
[2021-05-15] MEDS: lisinopril 5 MG TAB PO SCH (09:55)
[2021-05-15] MEDS: METOPROLOL SUCC 50MG EXT REL TAB PO SCH (09:55)
[2021-05-15] MEDS: INSULIN ASPART PER UNIT SC SCH ×4 (10:05→20:51)
[2021-05-15 10:45] LABS: Appearance Urine Clear (Clear); Bilirubin Urine Negative (Negative); Blood Urine Negative (Negative); Color Urine Yellow; Glucose Urine UA 3+ (Negative); Ketones Urine Negative (Negative); Leukocyte Esterase Urine Negative (Negative); Nitrite Urine Negative (Negative); Protein Urine Negative (Negative); Specific Gravity Urine 1.022 (1.000-1.030); Urobilinogen Urine Negative (Negative)
[2021-05-15] MEDS: CLOPIDOGREL BISULFATE 75 MG TAB PO SCH (11:29)
[2021-05-15] MEDS: NICOTINE 21 MG/24 HR TDSY TD SCH (11:29)
--- NOTE | 2021-05-15 11:34 | Pharmacy Report ---
Pharmacy Glycemic Short Note 2 - Date of Service May 15, 2021 - Glycemic Short BSG Results (Last 24 hours): 05/15/21 05/15/21 05/15/21 04:38 05:14 07:57 Glucose 371 H* Cancelled POC Glucose 345 H* 05/15/21 08:37 Glucose POC Glucose 330 H* OUTPATIENT ANTIDIABETIC REGIMEN: * Trulicity 3 mg SQ weekly ASSESSMENT: * Mr Laura is a 70 y/o M with a PMH of T2DM who presents for chest pain. He was discharged on 05/13 after a STEMI. Patient at that time was on Lantus 20 units SQ BID plus Novolog CF 25 CR 7. * Will reinitiate above regimen. * BSG on admission was 330 mg/dL so will follow trend downwards. May require IV insulin bolus if BSGs do not trend downwards at lunch. PLAN FOR INPATIENT GLYCEMIC CONTROL: * Hold outpatient oral diabetes medications * Basal insulin * Lantus 20 units SQ BID * Bolus insulin * NovoLog per scale ACHS or Q6hrs while NPO * Goal Range: Low 110 mg/dL - High 140 mg/dL * Correction Factor: 25 mg/dL/unit * Nutritional / Prandial insulin per carb ratio of 1 unit per 7 grams CHO consumed PLAN FOR DISCHARGE: * TBD
[2021-05-15] MEDS ORDERED: PHARMACY GLYCEMIC MGMT CONSULT PRN (12:21)
[2021-05-15] MEDS: APIXABAN 5 MG TABLET PO SCH (20:47)
[2021-05-15] MEDS: INSULIN GLARGINE SOLOSTAR 100 UNITS/ML 3 ML PEN SC SCH (20:51)
[2021-05-15] MEDS ORDERED: MIRTAZAPINE TAB 15 MG TAB PO SCH (21:00)
--- NOTE | 2021-05-15 21:22 | Communication Note ---
Date of Service: May 15, 2021 Patient was seen and examined for follow-up of chest pain. He was recently discharged on Saturday after he was treating for ACS and he had a cardiac cath and stent placement. He said last night he developed severe chest pain that seems to be similar prior to the chest pain he had few days ago. CXR showed no acute finding. Repeat echo today show normal LV size, borderline concentric LVH. Apical kinesis. Left ventricular ejection fraction 40 to 45%. No pericardial effusion. LV apical thrombus unchanged from prior study. Repeat cardiac cath showed widely patent LAD stents with OSCAR-3 flow throughout coronary arteries. Moderate nonobstructive residual multivessel CAD, 50 to 60% ostial LAD, 50% latemid LAD. 50% ostial jailed D1 and 40% ostial circumflex. Cardiology suspected symptom might be related to post [place] pericarditis. Recommend to continue clopidogrel, Eliquis and aspirin increased to 325. Colchicine started for pericarditis. Continue to monitor in PCU. MD Felicia
--- NOTE | 2021-05-15 23:57 | Emergency Department Note ---
ED Visit Note Patient seen and evaluated bedside after discussion with the physician television production assistant. Please see her note for additional details. I did review the pat ient's recent history and current EKG. I did compare the current EKG to priors. Discussed with patient his current symptoms in comparison to most recent given recent intervention and stent placement. Patient was hemodynamically stable. Patient was started on occasions following discussion with Dr. Guerrier of cardiology. Case discussed with hospitalist for admission. .
[2021-05-16 07:29] LABS: Basophils # (auto) 0.03 K/uL (0-0.2); Basophils % (auto) 0.3 %; Eosinophils # (auto) 0.56 K/uL (0-0.5); Eosinophils % (auto) 6.2 %; Hematocrit (blood only) 44.2 % (42-52); Hemoglobin 15.6 g/dL (14.0-18.0); Immature Granulocytes # (auto) 0.04 K/uL (0.00-0.02); Immature Granulocytes % (auto) 0.4 %; Lymphocytes # (auto) 1.88 K/uL (1.2-3.4); Lymphocytes % (auto) 20.9 %; Mean Corpuscular Hgb Conc 35.3 g/dL (32-36); Mean Corpuscular Volume 96.3 fL (80-100); Mean Platelet Volume 10.2 fL (7.4-10.4); Monocytes # (auto) 0.95 K/uL (0.11-0.59); Monocytes % (auto) 10.6 %; Neutrophils # (auto) 5.54 K/uL (1.4-6.5); Neutrophils % (auto) 61.6 %; Platelet Count 223 K/uL (130-400); RDW Coefficient of Variation 13.3 % (11.5-14.5); RDW Standard Deviation 46.5 fL (36.4-46.3); Red Blood Count 4.59 M/uL (4.7-6.1)
[2021-05-16 07:48] LABS: BUN Creatinine Ratio 11.5 (10-20); Calcium 9.4 mg/dl (8.5-10.1); Est GFR (African American) 102.8 ml/min; Est GFR (Non-African American) 88.7 ml/min; Potassium 3.7 mmol/L (3.5-5.1)
[2021-05-16] MEDS: INSULIN ASPART PER UNIT SC SCH ×2 (08:24→12:32)
[2021-05-16] MEDS: INSULIN GLARGINE SOLOSTAR 100 UNITS/ML 3 ML PEN SC SCH (08:25)
[2021-05-16] MEDS: COLCHICINE 0.6 MG TAB PO SCH (08:26)
[2021-05-16] MEDS: DULoxetine HCL 60 MG CAP PO SCH (08:26)
[2021-05-16] MEDS: lisinopril 5 MG TAB PO SCH (08:26)
[2021-05-16] MEDS: PANTOprazole 40 MG TAB PO SCH (08:26)
[2021-05-16] MEDS: METOPROLOL SUCC 50MG EXT REL TAB PO SCH (08:26)
[2021-05-16] MEDS: GABAPENTIN 300 MG CAP PO SCH (08:26)
[2021-05-16] MEDS: CLOPIDOGREL BISULFATE 75 MG TAB PO SCH (08:27)
[2021-05-16] MEDS: ASPIRIN 325 MG ECTAB PO SCH (08:27)
[2021-05-16] MEDS: ATORVASTATIN 40 MG TAB PO SCH (08:27)
[2021-05-16] MEDS: APIXABAN 5 MG TABLET PO SCH (08:27)
[2021-05-16] MEDS: NICOTINE 21 MG/24 HR TDSY TD SCH (08:30)
[2021-05-16] MEDS ORDERED: INSULIN GLARGINE SOLOSTAR 100 UNITS/ML 3 ML PEN SC SCH (09:00)
--- NOTE | 2021-05-16 11:29 | Pharmacy Report ---
Pharmacy Glycemic Short Note 2 - Date of Service May 16, 2021 - Glycemic Short BSG Results (Last 24 hours): 05/15/21 05/15/21 05/15/21 11:46 16:29 20:44 Glucose POC Glucose 227 H 96 95 05/16/21 05/16/21 07:15 07:19 Glucose 121 H POC Glucose 115 H OUTPATIENT ANTIDIABETIC REGIMEN: * Trulicity 3 mg SQ weekly ASSESSMENT: 05/16: * Patient received total of 65 units of insulin yesterday; 40 units basal and 25 units bolus. * BSGs trended down to 95 mg/dl yesterday at HS. Novolog parameters continued the same * Fasting BSG = 115 mg/dl today. Basal Lantus continued the same as well. Background 05/15/21: * Mr Laura is a 70 y/o M with a PMH of T2DM who presents for chest pain. He was discharged on 05/13 after a STEMI. Patient at that time was on Lantus 20 units SQ BID plus Novolog CF 25 CR 7. * Will reinitiate above regimen. * BSG on admission was 330 mg/dL so will follow trend downwards. May require IV insulin bolus if BSGs do not trend downwards at lunch. PLAN FOR INPATIENT GLYCEMIC CONTROL: * Hold outpatient oral diabetes medications * Basal insulin * Lantus 20 units SQ BID * Bolus insulin * NovoLog per scale ACHS or Q6hrs while NPO * Goal Range: Low 110 mg/dL - High 140 mg/dL * Correction Factor: 25 mg/dL/unit * Nutritional / Prandial insulin per carb ratio of 1 unit per 7 grams CHO consumed PLAN FOR DISCHARGE: * Hba1c = 8.4% on 05/11/21. Goal A1c is less than 7% in this patient given his age and co-morbidities. * Recommend continue Trulicity 3 mg SQ weekly. * Recommend adding Metformin XR 500 mg PO BID with meals (breakfast and dinner).
--- NOTE | 2021-05-16 12:45 | Cardiology Progress Note ---
Date of Service May 16, 2021 Assessment & Plan (1) Chest pain: Plan: 2. Recent anterior STEMIpost ERIC x2 to LAD 3. Residual moderate ostial LAD/circumflex disease 4. Ischemic cardiomyopathy- Apical akinesis. 5. LV apical thrombus 6. Hypertension 7. Type 2 diabetes Coronary anatomy unchanged on repeat cardiac catheterization. Echo shows unchanged LV function. No pericardial effusion. -2 L yesterday. No significant congestion on exam today. From a cardiac standpoint doing well. Suspect symptoms yesterday related to mild volume overload, possible pericarditis. Okay with discharge today. Discharge on new Lasix 20 mg daily Continue colchicine 0.6 mg twice daily Can reduce aspirin back to 81 mg daily Continue clopidogrel Continue Eliquis Continue current Toprol-XL, lisinopril and spironolactone Follow-up with me in 1 week. Admission and Anticipated Discharge Date Admission Date: May 15, 2021 Subjective Doing well today. No recurrent chest symptoms. Breathing back at baseline. No other new concerns. Interviewno events Review of Systems 2 Review of Systems: All systems reviewed & are unremarkable except as noted in HPI & below Physical Exam Physical Exam: General: Comfortable HEENT: Sclerae anicteric Lungs: Clear to auscultation bilaterally Cardiac: Regular rate and rhythm no murmurs, no clear rubs Vascular: Right radial artery access site with no ecchymosis, hematoma. Distal pulse and sensation intact. Abdomen: Soft, nontender Extremities: Well perfused, no peripheral edema Neuro: Nonfocal Psych: Alert orient x3, normal affect and mood Results & Data ([facility]) Vital Signs (Past 12 Hours) Vital Signs Temp Pulse Pulse Resp BP Pulse Ox 05/16/21 12:17 97.7 F 65 115/73 96 05/16/21 11:00 98.2 F 66 14 111/65 97 05/16/21 07:12 69 05/16/21 06:59 97.7 F 82 16 133/65 92 05/16/21 03:40 98.1 F 77 18 127/76 92 PG Care Time/CCT Total # of Minutes Spent Total Time Spent with Patient: Total time spent is greater than 50% in coordination of care (as documented) at patient's floor/unit and/or counseling patient: Coding Level of Care Code 77315 Subseq Hosp Care Lvl 3 Diagnoses Chest pain R07.9 Chest pain type: unspecified (1) Chest pain Chest pain type: unspecified Qualified Code(s): R07.9 - Chest pain, unspecified
[2021-05-16] MEDS ORDERED: FUROSEMIDE 20 MG TAB PO SCH (13:00)
--- NOTE | 2021-05-16 13:11 | Discharge Summary ---
Date of Service May 16, 2021 Admission HPI Per Admitting Provider History obtained from patient, family, and records. Medical history significant for chronic systolic heart failure secondary to ischemic cardiomyopathy (EF 40 to 45%, TTE 2020), CAD status post stent, history LV thrombus on Eliquis, hyperlipidemia, DM2 on oral medications, GERD, mood disorder, ongoing tobacco abuse. Recent confinement May 10-[address] elevation ND status post successful PCI of proximal to mid LAD with 2 overlapping ERIC. LV thrombus found along apical inferior segment. Patient discharged on aspirin, Plavix, and Eliquis. Patient experience substernal discomfort this morning as he was going to the bathroom similar to chest pain episode from a few days ago although somewhat different with pleuritic nature. No cough, no shortness of breath. Relief with nitroglycerin. Patient brought to the ER for evaluation. Heart alert called after evaluation by computerized mill recorder. Medical History as above Surgical History : Carpal tunnel surgery, neck surgery, low back surgery Family History : DM, heart disease Personal/Social history : Few cigarettes a day, occasional EtOH intake, disabled Admission Exam Per Admitting Provider GENERAL: Comfortable, pleasant, no respiratory distress SKIN: Normal color, warm HEENT: [place] palpebral conjunctivae, no ptosis, moist buccal mucosa NECK : Supple, no tenderness CHEST : CTA, no tenderness HEART : RRR, no obvious murmurs ABDOMEN: Some distention, nontender EXTREMITIES : No LE swelling/tenderness, no other conspicuous deformities noted NEUROLOGIC : Coherent, no facial asymmetry, no other gross focality Principal Diagnosis Acute ST segment elevation ND: Chest pain: Diabetes mellitus: LV thrombus T2DM, uncontrolled with hyperglycemia Diabetic Neuropathy Discharge Exam General- No acute distress Head- atraumatic Eyes- PERRL, EOMI, ENT- oropharynx clear Neck- supple, no JVD Lungs- clear to auscultation Heart- regular rhythm; no murmur Abdomen- normal bowel sounds, soft, nontender Extremities- no calf tenderness, no hematoma in R wrist area Neuro- alert, oriented x 3; PERRL, EOMI; no facial palsy; no dysarthria Skin- warm & dry Discharge Data Allergies Allergy/AdvReac Type Severity Reaction Status Date / Time adhesive AdvReac Intermediate SKIN Verified 04/12/15 08:45 REACTION WITH BLISTERS acetaminophen [From Percocet] AdvReac Unknown Unknown Verified 05/15/21 09:25 esomeprazole [From Nexium] AdvReac Unknown Unknown Verified 05/15/21 09:25 Influenza Virus Vaccines AdvReac Unknown Unknown Verified 05/15/21 09:25 oxycodone [From Percocet] AdvReac Unknown Unknown Verified 05/15/21 09:25 Consultations 05/15/21 04:50 ED Decision to Admit Stat 05/15/21 04:53 ED Decision to Admit Stat Procedures Performed Operation Date: 05/15/21 06:20 Actual Procedures p Cineradiography w/Routine Exam - Rigoberto Guerrier MD s Cath, Coronaries ONLY (no LV) - Rigoberto Guerrier MD DICTATED BY:Lam Guerrier MD ACC Data: Sales Order Administrator Cardiac Status Clinical evaluation leading to the procedure CAD Presenation: Non STEMI Anginal Classification: CCS IV Heart Failure: NYHA Class: CCS IV Cardiogenic Shock within 24 Hours: No Cardiac Arrest within 24 Hours: No Imaging Studies Past 6 Months: Yes Stress Studies Past 6 Months: No Diagnostic Physicians Name: Lam Guerrier MD Status: Elective Closure Device Percutaneous Entry Location: Radial Closure Device: Radial Band Recommendations: Medical Therapy and/or Counseling Intraprocedure Events Significant Disection: No Perforation: No Cardiac Cath Procedure Full Procedure Date May 15, 2021 Pre-Procedure Diagnosis Pre-Procedure Diagnosis: Non STEMI AUC Score AUC Score: 7 Post-Procedure Diagnosis Post-Procedure Diagnosis: Moderate CAD Procedure(s) Performed Procedure(s) Performed: Coronary Angiography Telephone Information Supervisor Lam Guerrier MD Maintenance Planner(s) Deibler Estimated Blood Loss Estimated Blood Loss: 5 Medication(s) Medication(s): Fentanyl, Lidocaine 1%, Nicardipine, Nitroglycerin and Versed Summary of Findings Indication: Recent anterior ND post PCI with 2 ERIC to LAD. Known residual moderate ostial LAD/circumflex disease. Here with recurrent acute chest pain. Access: 6 Fr right radial artery Catheters: [place] Findings: LM -normal caliber, mildly calcified, luminal irregularities LAD -medium caliber, 50 to 60% ostial stenosis, widely patent proximal to mid stents, 50% latemid stenosis. Moderate D1 with 50 to 60% proximal disease. OSCAR-3 flow throughout LAD/diagonal. Circumflex -dominant, large caliber, 40 to 50% ostial. Large OM1 without significant disease. Mid to distal circumflex and small left PDA without disease. RCA -small, nondominant, no significant disease Arterial Closure: TR band Summary: 1. Widely patent LAD stents with OSCAR-3 flow throughout coronary arteries. 2. Moderate nonobstructive residual multivessel CAD 50 to 60% ostial LAD, 50% latemid LAD. 50% ostial jailed D1 40% ostial circumflex Recommendations: Suspect symptoms in part related to post ND pericarditis. May have some contribution from mild acute heart failure. Continue clopidogrel, resume Eliquis tonight. Start colchicine, increase aspirin to 325 IV Lasix now Continue PPI Admit to PCU for further monitoring Hemodynamics Rest Ao:: 81//62 Final Ao: 103/61/106 LV: -- Recommendations Recommendations: Medical Therapy and/or Counseling Specimens Specimens: None Radiation Exposure (mGy) 550 Contrast (mls) 48 Fluids (cc crystalloids) Fluids (cc crystalloids): 31 Drains Drains: None Anesthesia Moderate [id number] Procedural Complication(s) None Disposition PCU I attest to the content of the Intraoperative Record and any orders documented therein. Any exceptions are noted below. [facility] Card Cath Procedure Codes Cardiac Catheterization Procedure 1: Cardiovascular Cath Procedures: 86306 Coronaries Moderate Sedation Procedure 1: Sedation/Anesthesia: 26458 Mod Sedation by the same physician;Init15 Min Child Age 5 & Up PG Care Time/CCT Total # of Minutes Spent Total Time Spent with Patient: Total time spent is greater than 50% in coordination of care (as documented) at patient's floor/unit and/or counseling patient: Signed By: <Electronically signed by Delmar Created/Dictated:05/15/21 0704 Transcribed: 05/15/21 0704 Ordered Studies 05/15/21 06:19 CL Cath Imgs for PACS use only Stat XR chest 1V portable CLINICAL HISTORY: Atypical chest pain TECHNIQUE: Single frontal radiograph of the chest was obtained. Comparison: Comparison is made to chest one view 05/11/2021 FINDINGS: No lines and tubes are seen. The cardiomediastinal silhouette is normal. The lungs are clear. No evidence of pleural effusion or pneumothorax. Old healed left clavicle fracture and left rib fractures noted. IMPRESSION: No acute chest disease. ACT 112: Negative or not required by law. Electronically signed by: Eamon Orozco M.D. 05/15/2021 7:30 AM Dictated:05/15/21727 Transcribed: 05/15/21727 Hospital Course (1) Chest pain: Patient was recently discharged on Sunday 05/13 for ND Symptom might be related to post ND pericarditis Troponin on admission elevated at 15 mostly due to the previous troponin (tail) elevation due to prior admission for ND, then trending down Cardiology on board Status Post repeat Cardiacrevealed widely patent LAD stents with OSCAR-3 flow throughout coronary arteries.Moderate nonobstructive residual multivessel CAD 50 to 60% ostial LAD, 50% latemid LAD. 50% ostial jailed D1. 40% ostial circumflex Repeat echo on this admission showed normal LV size, borderline concentric LVH. Apical kinesis. Left ventricular ejection fraction 40 to 45%. No pericardial effusion. LV apical thrombus unchanged from prior study. Repeat cardiac cath showed widely patent LAD stents with OSCAR-3 flow throughout coronary arteries. Moderate nonobstructive residual multivessel CAD, 50 to 60% ostial LAD, 50% latemid LAD. 50% ostial jailed D1 and 40% ostial circumflex. cardiology on board Continue clopidogrel, Eliquis and aspirin 81mg Continue colchicine 0.6 mg twice daily, Aspirin 81mg daily Lasix 20 mg daily Continue current Toprol-XL, lisinopril and spironolactone Follow-up with cardiology in 1 week Okay from cardiology standpoint to discharge home LV thrombus Repeat echo showed LV thrombus along the apical inferior segment Continue Eliquis 5 mg twice daily T2DM, uncontrolled with hyperglycemia last a1c 8.2 05/03/21 Will resume on discharge trulicity lantus/novolog per protocol will need better control given CAD, goal < 7 Pharmacy on board for glycemic management Diabetic Neuropathy continue cymbalta and gabapentin DVT ppx:on Eliquis Dispo: Discharge home today PCP: Adrien FULL CODE Total Time Total Time Spent Total Time Spent (In Minutes): 35 minutes Discharge Plan Discharge Items Patient Disposition: Home - Self-Care Reason For Visit: PERICARDITIS Discharge Diagnosis: Chest pain: Diabetes mellitus: LV thrombus T2DM, uncontrolled with hyperglycemia Diabetic Neuropathy Condition on Discharge: Fair Activity: Resume your previous activity Non-emergency contact: Primary Care Provider and Telephone Information Supervisor Call non-emergency contact if: you have any medication questions Follow-up/Referrals: Tucker Jurado MD [Primary Care Provider] - (Date & Time 05/17/2021 9:40 AM Provider Gianna Hernández, Department [facility] ) Diet: Carb Consistent or DM2 and Heart Healthy Addtl Attending Provider Instructions: Follow up with your primary care provider Dr. Hernández ( Dr. Jurado's colleague) on 05/17/2021 @9:40 AM at the [facility] Follow up with cardiology Dr. Guerrier in 1 week Outpatient referral for cardiac rehab Counseling on smoking cessation Check BMP in 1 week to monitor electrolyte and renal function Continue triple therapy with Eliquis, Clopidogrel, ASA for at least 1 month; then after 1 month continue Plavix and aspirin for 1 year Please seek medical attention if you develop any abnormal bleeding such as hematuria and blood in your stool Due to insurance authorization atorvastatin changed to 1 tablet 80 mg daily instead of 2 tablets 40 mg daily Pending Studies at Discharge: No Stand-Alone Forms: My [facility], Smoking Cessation Medications and DC Order Prescriptions: New furosemide 20 mg Tablet 20 mg PO QAM Qty: 30 RF: 0 colchicine [Colcrys] 0.6 mg Tablet 0.6 mg PO BID Qty: 30 RF: 0 atorvastatin 80 mg tablet 80 mg PO DAILY Qty: 30 RF: 0 Continued tramadol 50 mg Tablet 50 mg PO Q6H PRN (Reason: Pain) RF: 0 pantoprazole 40 mg Tablet,Delayed Release (Dr/Ec) 40 mg PO DAILY RF: 0 mirtazapine 15 mg Tablet 15 mg PO HS RF: 0 duloxetine 60 mg Capsule,Delayed Release(Dr/Ec) 60 mg PO BID RF: 0 Trulicity 3 mg/0.5 mL Pen Injector 3 mg SUBCUT WK RF: 0 gabapentin 300 mg Capsule 300 mg PO DAILY RF: 0 clopidogrel 75 mg Tablet 75 mg PO QAM 30 Days Qty: 30 RF: 0 aspirin 81 mg Tablet,Delayed Release (Dr/Ec) 81 mg PO QAM 30 Days Qty: 30 RF: 0 spironolactone 25 mg Tablet 12.5 mg PO DAILY 30 Days Qty: 15 RF: 0 nitroglycerin [Nitrostat] 0.4 mg Tablet, Sublingual 0.4 mg sublingual PRN PRN (Reason: chest pain) Qty: 30 RF: 0 lisinopril [Zestril] 5 mg Tablet 5 mg PO QAM 30 Days Qty: 30 RF: 0 Eliquis 5 mg Tablet 5 mg PO BID 30 Days Qty: 60 RF: 0 metoprolol succinate [Toprol XL] 100 mg tablet extended release 24 hr 100 mg PO DAILY Qty: 30 RF: 0 Discontinued atorvastatin 80 mg 80 mg PO DAILY RF: 0 Discharge Orders: Discharge Order (Routine); Ordered 05/16/21 Ordered By: Lamonte Duarte Admission Data Admit Date/Time: 05/15/21 07:02 Attending Provider: Lamonte Duarte Admit Provider: Hang Brown Primary Care Provider: Tucker Jurado Other Providers: Hang Brown
[2021-05-16 15:51] VITALS: BP 111/73; PULSE 64; TEMP 97.5; O2SAT 97
--- NOTE | 2021-05-17 06:03 | Electrocardiogram Report ---
Test Reason : Blood Pressure : / mmHG Vent. Rate : 097 BPM Atrial Rate : 097 BPM P-R Int : 146 ms QRS Dur : 072 ms QT Int : 340 ms P-R-T Axes : 076 -65 070 degrees QTc Int : 431 ms Poor data quality, interpretation may be adversely affected Normal sinus rhythm Left axis deviation Low voltage QRS Anterior infarct with residual ST elevation Abnormal ECG When compared with ECG of 11-MAY-2021 00:26, No significant change was found Confirmed by Steven Vargas ([id number]) on 05/17/2021 6:03:13 AM Referred By: REFERRED SELF Confirmed By:Steven Vargas
--- NOTE | 2021-05-17 06:03 | Electrocardiogram Report ---
Test Reason : Blood Pressure : / mmHG Vent. Rate : 093 BPM Atrial Rate : 093 BPM P-R Int : 144 ms QRS Dur : 070 ms QT Int : 324 ms P-R-T Axes : 075 -63 064 degrees QTc Int : 402 ms Poor data quality, interpretation may be adversely affected Normal sinus rhythm Left axis deviation Low voltage QRS Anterior infarct Abnormal ECG When compared with ECG of 15-MAY-2021 04:37, No significant change was found Confirmed by Steven Vargas ([id number]) on 05/17/2021 6:03:38 AM Referred By: REFERRED SELF Confirmed By:Steven Vargas
--- NOTE | 2021-05-17 06:12 | Electrocardiogram Report ---
Test Reason : Blood Pressure : / mmHG Vent. Rate : 082 BPM Atrial Rate : 082 BPM P-R Int : 144 ms QRS Dur : 076 ms QT Int : 346 ms P-R-T Axes : 078 -64 070 degrees QTc Int : 404 ms Normal sinus rhythm Left axis deviation Low voltage QRS Anterior infarct (cited on or before 10-MAY-2021) Anterior ST elevation Abnormal ECG When compared with ECG of 15-MAY-2021 04:40, ST more elevated in Anterior leads Confirmed by Steven Vargas ([id number]) on 05/17/2021 6:11:37 AM Referred By: REFERRED SELF Confirmed By:Steven Vargas
--- NOTE | 2021-05-17 06:15 | Electrocardiogram Report ---
Test Reason : Blood Pressure : / mmHG Vent. Rate : 079 BPM Atrial Rate : 079 BPM P-R Int : 134 ms QRS Dur : 082 ms QT Int : 374 ms P-R-T Axes : 061 -66 070 degrees QTc Int : 428 ms Normal sinus rhythm Possible Left atrial enlargement Left axis deviation Low voltage QRS Anterior infarct Abnormal ECG When compared with ECG of 15-MAY-2021 08:10, No significant change was found Confirmed by Steven Vargas ([id number]) on 05/17/2021 6:15:13 AM Referred By: REFERRED SELF Confirmed By:Steven Vargas
[2021-05-17] MEDS ORDERED: ASPIRIN 81 MG ECTAB PO SCH (09:00)
--- NOTE | 2021-05-31 07:10 | Coding Query ---
CONGESTIVE HEART FAILURE To Promote full compliance with coding requirements relating to patient care, physician participation is requested in all cases of seat pack inspector uncertainty. Please assist us with the following questions. A diagnosis of Congestive Heart Failure is documented in the patient's medical record. To accurately code this diagnosis and to compare patient severity, we ask that you specify the type of heart failure by placing an X within the parenthesis (x). Documented chronic systolic heart failure. Cardiac Cath report stated : " Suspect symptoms in part related to post CA pericarditis. May have some contribution from mild acute heart failure". IV lasix given . Please check below. Thank you. REJI Montalvo CCS SYSTOLIC HEART FAILURE ( ) Acute ( ) Chronic ( ) Acute on Chronic ( ) Rheumatic ( x) Unknown DIASTOLIC HEART FAILURE ( ) Acute ( ) Chronic ( ) Acute on Chronic ( ) Rheumatic ( ) Unknown COMBINED SYSTOLIC AND DIASTOLIC HEART FAILURE ( ) Acute ( ) Chronic ( ) Acute on Chronic ( ) Rheumatic ( ) Unknown Was the CHF Present On Admission? Please check the appropriate box: ( x) Present on Admission ( ) Not Present On Admission ( ) Clinically undetermined Thank you Sin CARRASCO
== END 2021-05-16 16:10 | disposition home or self-care (01) | DRG 287 ==
LOC: ED 04:30 → 2S 06:24 → CC 06:24 → INTOOBSV 07:02 → OBSVTOIN 07:02 → 2S 07:02
PROC: CLB.CCO (2021-05-15 06:20)

== ENCOUNTER 2021-07-19 14:33 | Observation (INO) ==
[2021-07-19] MEDS ORDERED: NITROGLYCERIN SL 0.4 MG/TAB TAB ONE (14:57)
[2021-07-19] MEDS ORDERED: SODIUM CHLORIDE 0.9% 1000ML 500 ML IV ONE (15:02)
[2021-07-19] MEDS ORDERED: ONDANSETRON INJ 2 MG/ML 2 ML VIAL IV STA (15:02)
[2021-07-19] MEDS ORDERED: MoRPHine SULFATE 2 MG/ML CARP IV STA (15:02)
[2021-07-19] MEDS ORDERED: NITROGLYCERIN SL 0.4 MG/TAB TAB SL PRN (15:02)
[2021-07-19] MEDS ORDERED: ONDANSETRON INJ 2 MG/ML 2 ML VIAL ONE (15:03)
[2021-07-19] MEDS ORDERED: MoRPHine SULFATE 2 MG/ML CARP ONE (15:03)
[2021-07-19 15:06] LABS: Basophils # (auto) 0.03 K/uL (0-0.2); Basophils % (auto) 0.5 %; Eosinophils # (auto) 0.23 K/uL (0-0.5); Eosinophils % (auto) 3.5 %; Hemoglobin 17.1 g/dL (14.0-18.0); Immature Granulocytes # (auto) 0.01 K/uL (0.00-0.02); Immature Granulocytes % (auto) 0.2 %; Lymphocytes # (auto) 1.85 K/uL (1.2-3.4); Lymphocytes % (auto) 28.3 %; Mean Corpuscular Hemoglobin 34.3 pg (25-34); Mean Corpuscular Hgb Conc 34.9 g/dL (32-36); Mean Corpuscular Volume 98.4 fL (80-100); Mean Platelet Volume 9.7 fL (7.4-10.4); Monocytes # (auto) 0.64 K/uL (0.11-0.59); Monocytes % (auto) 9.8 %; Neutrophils # (auto) 3.77 K/uL (1.4-6.5); Neutrophils % (auto) 57.7 %; Platelet Count 222 K/uL (130-400); RDW Coefficient of Variation 14.1 % (11.5-14.5); RDW Standard Deviation 50.5 fL (36.4-46.3); Red Blood Count 4.98 M/uL (4.7-6.1); White Blood Count 6.53 K/uL (4.8-10.8)
--- NOTE | 2021-07-19 15:10 | Emergency Department Note ---
Impression & Plan Precordial chest pain, SOB (shortness of breath), History of coronary artery disease, Abnormal ECG ED Provider Note NAME: KIRSTEN RODRIGUEZ AGE: 70 SEX: M : 1950 ARRIVES VIA: Walk-In INFORMANT: [Patient] ED PROVIDER(S): [Stu Osullivan MD] CHIEF COMPLAINT: Chest pain HISTORY OF PRESENT ILLNESS: The patient is a 70-year-old male who presents to the ER with left-sided chest pain that is a 4/10. The pain started while he was at cardiac rehab about 45 minutes ago. The pain has been constant since. He feels a bit short of breath. No nausea or sweating. He does feel some numbness down his left arm and he does have some pain radiation to the left shoulder. The patient did have cardiac stenting done last year in March, he has used 1 nitroglycerin since that timeframe, he did not use any today. The patient has not had cough, congestion. He does not currently have any abdominal pain. He was in baseline health today before rehab. REVIEW OF SYSTEMS: See HPI for pertinent positives and negatives. A total of ten systems were reviewed and were otherwise negative. PMHx/PSHx: See Below SOCIAL HISTORY: See Below. PHYSICAL EXAM: GENERAL: Patient is in mild distress from pain. HEENT: No acute trauma, normocephalic atraumatic, mucous membranes moist, no nasal congestion, no scleral icterus. NECK: No stridor, no adenopathy, no meningismus, trachea is midline. LUNGS: Clear to auscultation bilaterally, no wheeze, no rhonchi, breath sounds equal. Increased respiratory rate noted. Chest: Mildly tender over the left chest wall. HEART: Without murmurs gallops or rubs, regular rate and rhythm. Heart tones are distant. ABDOMEN: Soft, nontender, bowel sounds positive, no hernias, no peritonitis. EXTREMITIES: No cyanosis or edema, full range of motion of all the joints without pain or difficulty, no signs for acute trauma. NEUROLOGIC: Oriented x 3, no acute motor or sensory deficits, no focal weakness. SKIN: No rash, no jaundice, no diaphoresis. DIFFERENTIAL DIAGNOSIS: Cardiac ischemia, aortic dissection, pulmonary embolism, pneumothorax, pneumonia, pericarditis, myocarditis, esophageal rupture, GERD, cholecystitis, pancreatitis, musculoskeletal, as well as other pathologies. EMERGENCY DEPARTMENT COURSE/PROCEDURES: ECG: Indication was chest pain. The ECG shows a normal sinus rhythm with a rate of 72. 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 There is some ST elevation noted across the anterior and lateral leads. The QTc is 440. Compared an ECG from 15 May 2021, I see no significant change. Repeat EEG: Indication was chest pain. ECG shows a normal sinus rhythm with a rate of 75. 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 There is some ST elevation in the anterior and lateral leads. The QTc is 457. Compared to the ECG from earlier today, the ST changes appear somewhat improved. Continuous Cardiac Monitoring: An order was placed for continuous cardiac monitoring. The monitor shows a rate of 74 with normal sinus rhythm. Critical Care Note: I have personally spent 34 minutes of critical care time in the direct management of this patient. This includes bedside care, interpretation of diagnostic studies, and testing, discussion with consultants, patient, and family members, and other required patient management activities. This 34 minutes is in excess of all separately billable procedures. MEDICAL DECISION MAKING: There is no leukocytosis or concerning anemia. There is a normal platelet count. No coagulopathy. No significant electrolyte abnormality or kidney failure. No concerning liver enzyme elevation. ECG shows a sinus rhythm with some ST elevation across the anterior/lateral leads. This ECG looks similar to previous ECGs. Cardiac enzyme testing x1 was not consistent with acute cardiac injury. Chest film did not show pneumonia, mediastinal widening or pneumothorax. Covid testing returned negative. The patient was seen emergently in room A1. A nitroglycerin trial was ordered. He was ordered for IV morphine, IV Zofran, he was given IV saline. Immediately after my evaluation, I did speak with Dr. Guerrier of cardiology. The patient was seen quickly by Dr. Guerrier and is going to the cardiac catheterization laboratory. A repeat look at his coronary anatomy was felt warranted. Of note, the patient has not had much relief of his chest discomfort with the nitroglycerin or morphine--a repeat ECG was performed after the nitroglycerin and the anterior/lateral ST elevations did appear a bit improved. The patient is aware of his findings, I did speak with case management. The on- call hospitalist was consulted. Past Med/Surg History Medical History Acute ST segment elevation NE 05/10/21 treated at [facility], cardiac cath with 2 stent placed[address] follows with Dr [place] Guerrier. 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 fully healed currently. Hyperlipidemia Hypertension Medical cannabis use On anticoagulant therapy Peripheral neuropathy Surgical History History of cardiac cath (05/10/21) [facility] History of carpal tunnel surgery bilateral History of cervical spinal surgery C5-C6 fusion with 90% rom - difficulty/painful to look up. History of colonoscopy History of esophagogastroduodenoscopy (EGD) History of heart artery stent (05/10/21) x2 drug eluting stents History of lumbar surgery lumbar fusion L4-L5. History of open reduction and internal fixation (ORIF) procedure Left Humerus S/P hardware removal Left humerus Family History Mother Diabetes Breast cancer Macular degeneration Father Diabetes Heart disease Stroke Other No family history of adverse response to anesthesia Social History Smoking Status: Never smoker Tobacco Type: Cigarettes packs per day: 0.5; Years Smoked: 20; Cigarettes Per Day: 3; Second Hand Exposure: No; Hx Alcohol Use: Yes Alcohol type: wine Hx Substance Use: Yes Last Used Substance: Days (ago) Last Used Substance Other:: within 24 hours Preferred Language: Cameroonian Communication Ability: Effective Pastry Mixer Required: No Beliefs That Will Affect Care: None marital status: Current Living Situation: Spouse current occupation: Retired How many Children do You have: 3 Other Information That Helps Us Care for You: No Feels Safe at Home: Yes Safety Concerns: Feels Safe At This Time Assistive Devices: Denture - Upper, Denture - Lower and Glasses Allergies Allergies Allergy/AdvReac Type Severity Reaction Status Date / Time adhesive AdvReac Intermediate SKIN Verified 06/29/21 13:18 REACTION WITH BLISTERS Influenza Virus Vaccines AdvReac Mild lost his Verified 06/29/21 13:18 voice esomeprazole [From Nexium] AdvReac Unknown Unknown Verified 06/29/21 13:18 oxycodone [From Percocet] AdvReac Unknown Unknown Verified 06/29/21 13:18 Home Meds Home Medications Medication Instructions Recorded Confirmed gabapentin 300 mg capsule 300 mg PO HS 05/10/21 07/19/21 pantoprazole 40 mg tablet,delayed 40 mg PO QAM 05/10/21 07/19/21 release tramadol 50 mg tablet 50 mg PO DAILY PRN 05/10/21 07/19/21 aspirin 81 mg tablet 81 mg PO QAM 06/23/21 07/19/21 dulaglutide 4.5 mg/0.5 mL 4.5 mg SUBCUT WK 06/23/21 07/19/21 subcutaneous pen injector (Trulicity) empagliflozin 10 mg tablet 10 mg PO QAM 06/23/21 07/19/21 (Jardiance) tramadol 50 mg tablet 50 mg PO BID 06/23/21 07/19/21 venlafaxine 75 mg capsule,extended 75 mg PO HS 07/19/21 07/19/21 release 24 hr Previous Rx's Medication Instructions Recorded nitroglycerin 0.4 mg sublingual 0.4 mg SUBLINGUAL PRN PRN #30 tab 05/30/21 tablet (Nitrostat) clopidogrel 75 mg tablet 75 mg PO QAM 90 Days #90 tab 06/06/21 furosemide 20 mg tablet 20 mg PO QAM #90 tab 06/06/21 lisinopril 5 mg tablet (Zestril) 5 mg PO QAM 90 Days #90 tab 06/06/21 atorvastatin 80 mg tablet 80 mg PO QAM #90 tab 06/29/21 metoprolol succinate 50 mg 50 mg PO QAM #90 tab 06/29/21 tablet,extended release 24 hr Results & Data (ED) Vital Signs Vital Signs - 24 hr 07/19/21 14:35 07/19/21 15:00 07/19/21 15:16 Temperature 36.9 C Temperature Source Oral Pulse Rate 70 Pulse Rate [Apical] 78 66 Pulse Rate from SpO2 Sensor Pulse Rhythm [Apical] Regular Regular Pulse Strength [Apical] Normal Respiratory Rate 18 22 20 Respiratory Effort / Characteristics Non-Labored Non-Labored Non-Labored Spontaneous Respiratory Depth Normal Normal Normal Respiratory Pattern Regular Blood Pressure 132/87 Blood Pressure [Right Arm] 96/57 L 113/67 Blood Pressure Mean 102 Blood Pressure Mean [Right Arm] 70 82 Blood Pressure Position [Right Arm] Lying Lying Pulse Oximetry 95 98 97 Oxygen Delivery Method Room Air Room Air Room Air Sepsis Recent Fever Within 48 Hours No Sepsis New/Unexplained Change in Mental Status No Sepsis Action Taken by Nursing No Action Required 07/19/21 17:45 Temperature Temperature Source Pulse Rate 51 L Pulse Rate [Apical] Pulse Rate from SpO2 Sensor 59 L Pulse Rhythm [Apical] Pulse Strength [Apical] Respiratory Rate 16 Respiratory Effort / Characteristics Respiratory Depth Respiratory Pattern Blood Pressure Blood Pressure [Right Arm] Blood Pressure Mean Blood Pressure Mean [Right Arm] Blood Pressure Position [Right Arm] Pulse Oximetry 96 Oxygen Delivery Method Sepsis Recent Fever Within 48 Hours Sepsis New/Unexplained Change in Mental Status Sepsis Action Taken by Alf Medications Current Medication List: was personally reviewed by me Laboratory Data Attestation: I reviewed the patient's lab results. Result diagrams: 07/19/21 15:00 07/19/21 15:00 Lab Results 07/19/21 07/19/21 07/19/21 Range/Units 15:00 15:00 15:00 WBC 6.53 (4.8-10.8) K/uL RBC 4.98 (4.7-6.1) M/uL Hgb 17.1 (14.0-18.0) g/dL Hct 49.0 (42-52) % MCV 98.4 (80-100) fL MCH 34.3 H (25-34) pg MCHC 34.9 (32-36) g/dL RDW Std Deviation 50.5 H (36.4-46.3) fL RDW Coeff of Taz 14.1 (11.5-14.5) % Plt Count 222 (130-400) K/uL MPV 9.7 (7.4-10.4) fL Immature Gran % (Auto) 0.2 % Neut % (Auto) 57.7 % Lymph % (Auto) 28.3 % Gaston % (Auto) 9.8 % Eos % (Auto) 3.5 % Baso % (Auto) 0.5 % Neut # (Auto) 3.77 (1.4-6.5) K/uL Lymph # (Auto) 1.85 (1.2-3.4) K/uL Gaston # (Auto) 0.64 H (0.11-0.59) K/uL Eos # (Auto) 0.23 (0-0.5) K/uL Baso # (Auto) 0.03 (0-0.2) K/uL Immature Gran # (Auto) 0.01 (0.00-0.02) K/uL PT 10.0 (9.0-12.0) Seconds INR 1.0 (0.9-1.1) APTT 24.8 (21.0-31.0) Seconds PTT Ratio 0.9 Sodium 136 (136-145) mmol/L Potassium 4.0 (3.5-5.1) mmol/L Chloride 99 (98-107) mmol/L Carbon Dioxide 27 (21-32) mmol/L Anion Gap 10 (3-11) BUN 18 (6-23) mg/dl Creatinine 0.88 (0.6-1.4) mg/dl Est Cr Clr Drug Dosing 75.1 ml/min Est GFR ( Amer) 102.3 ml/min Est GFR (Non-Af Amer) 88.3 ml/min BUN/Creatinine Ratio 20.5 H (10-20) Glucose 194 H (70-99(Fasting)) mg/dl Calcium 9.9 (8.5-10.1) mg/dl Magnesium (1.7-2.4) mg/dl Total Bilirubin 0.5 (0.2-1.0) mg/dl AST 23 (13-39) U/L ALT 28 (7-52) U/L Alkaline Phosphatase 130 H (34-104) U/L Troponin I < 0.03 (0-0.04) ng/ml Total Protein 8.3 (6.0-8.3) gm/dl Albumin 4.4 (3.4-5.0) gm/dl Globulin 3.9 (2.5-4.0) gm/dl Albumin/Globulin Ratio 1.1 (0.9-2) SARS-CoV-2, RNA, NAAT (NEGATIVE) 07/19/21 07/19/21 Range/Units 15:00 15:18 WBC (4.8-10.8) K/uL RBC (4.7-6.1) M/uL Hgb (14.0-18.0) g/dL Hct (42-52) % MCV (80-100) fL MCH (25-34) pg MCHC (32-36) g/dL RDW Std Deviation (36.4-46.3) fL RDW Coeff of Taz (11.5-14.5) % Plt Count (130-400) K/uL MPV (7.4-10.4) fL Immature Gran % (Auto) % Neut % (Auto) % Lymph % (Auto) % Gaston % (Auto) % Eos % (Auto) % Baso % (Auto) % Neut # (Auto) (1.4-6.5) K/uL Lymph # (Auto) (1.2-3.4) K/uL Gaston # (Auto) (0.11-0.59) K/uL Eos # (Auto) (0-0.5) K/uL Baso # (Auto) (0-0.2) K/uL Immature Gran # (Auto) (0.00-0.02) K/uL PT (9.0-12.0) Seconds INR (0.9-1.1) APTT (21.0-31.0) Seconds PTT Ratio Sodium (136-145) mmol/L Potassium (3.5-5.1) mmol/L Chloride (98-107) mmol/L Carbon Dioxide (21-32) mmol/L Anion Gap (3-11) BUN (6-23) mg/dl Creatinine (0.6-1.4) mg/dl Est Cr Clr Drug Dosing ml/min Est GFR ( Amer) ml/min Est GFR (Non-Af Amer) ml/min BUN/Creatinine Ratio (10-20) Glucose (70-99(Fasting)) mg/dl Calcium (8.5-10.1) mg/dl Magnesium 2.1 (1.7-2.4) mg/dl Total Bilirubin (0.2-1.0) mg/dl AST (13-39) U/L ALT (7-52) U/L Alkaline Phosphatase (34-104) U/L Troponin I (0-0.04) ng/ml Total Protein (6.0-8.3) gm/dl Albumin (3.4-5.0) gm/dl Globulin (2.5-4.0) gm/dl Albumin/Globulin Ratio (0.9-2) SARS-CoV-2, RNA, NAAT NEGATIVE (NEGATIVE) Administered Medications Gabapentin (Gabapentin 300 Mg Cap) 300 mg PO HS [facility] Stop: 08/18/21 20:59 Last Admin: 07/19/21 20:43 Dose: 300 mg Documented by: [id number] Sodium Chloride (Nss 1000ml) 1,000 mls @ 100 mls/hr IV .Q10H RASHID Stop: 07/19/21 22:59 Last Admin: 07/19/21 18:31 Dose: 100 mls/hr Documented by: [id number] Insulin Aspart (Insulin Aspart Per Unit) 0 units SC ACHS RASHID Stop: 08/18/21 20:59 Last Admin: 07/19/21 20:44 Dose: 1 units Documented by: [id number] Cosigned by: [id number] Insulin Glargine (Insulin Glargine Solostar 100 Units/Ml 3 Ml Pen) 0 - 12 units SC BID [facility]; Protocol Stop: 08/18/21 20:59 Last Admin: 07/19/21 20:44 Dose: 6 units Documented by: [id number] Cosigned by: [id number] Metoprolol Tartrate (Metoprolol Tartrate 25 Mg Tab) 25 mg PO BID RASHID Stop: 08/18/21 20:59 Last Admin: 07/19/21 20:28 Dose: Not Given Documented by: [id number] Nitroglycerin (Nitroglycerin Sl 0.4 Mg/Tab Tab) 0.4 mg SL PRN PRN PRN Reason: Pain Stop: 08/18/21 15:01 Last Admin: 07/19/21 15:10 Dose: 0.4 mg Documented by: [id number] Nitroglycerin (Nitroglycerin 2% Ointment 30gm Tube) 1 inch EXT Q6 [facility] Stop: 08/18/21 17:59 Last Admin: 07/19/21 18:30 Dose: Not Given Documented by: [id number] Tramadol HCl (Tramadol Hcl 50 Mg Tablet) 50 mg PO BID [facility] Stop: 08/18/21 20:59 Last Admin: 07/19/21 20:45 Dose: 50 mg Documented by: [id number] Venlafaxine HCl (Venlafaxine Hcl Xr 75 Mg Capxr) 75 mg PO HS [facility] Stop: 08/18/21 20:59 Last Admin: 07/19/21 20:43 Dose: 75 mg Documented by: [id number] Discontinued Medications Adenosine (Adenosine Iv Soln 3 Mg/Ml 20 Ml Vial) Confirm Administered Dose 120 mg IV .STK-MED ONE Stop: 07/19/21 16:27 Last Admin: 07/19/21 16:58 Dose: 120 mg Documented by: [id number] Fentanyl Citrate (Fentanyl Citrate 100 Mcg/2 Ml Vial) Confirm Administered Dose 100 mcg .ROUTE .STK-MED ONE Stop: 07/19/21 15:48 Last Increment: 07/19/21 17:03 Dose: 50 mcg Documented by: [id number] Heparin Sodium (Porcine) (Heparin (Porcine) 1000 Unit/Ml 10 Ml ([place] Use Only)) Confirm Administered Dose 10,000 units .ROUTE .STK-MED ONE Stop: 07/19/21 15:48 Last Admin: 07/19/21 16:56 Dose: 10,000 units Documented by: [id number] Heparin Sodium/Sodium Chloride (Heparin In Nss Infusion 1000 Unit/500 Ml (2 U/Ml) Bag) Confirm Administered Dose 3,000 units IV .STK-MED ONE Stop: 07/19/21 15:49 Last Admin: 07/19/21 16:57 Dose: 3,000 units Documented by: [id number] Sodium Chloride (Nss 1000ml) 500 mls @ 999 mls/hr IV .Q31M ONE Stop: 07/19/21 15:32 Last Infusion: 07/19/21 18:32 Dose: 0 mls/hr Documented by: [id number] Admin: 07/19/21 15:10 Dose: 999 mls/hr Documented by: [id number] Lidocaine HCl (Lidocaine 1% Local 20 Ml Vial) Confirm Administered Dose 20 ml .ROUTE .STK-MED ONE Stop: 07/19/21 15:50 Last Admin: 07/19/21 16:58 Dose: 20 ml Documented by: [id number] Midazolam HCl (Midazolam Hcl 1 Mg/Ml 2ml Vial) Confirm Administered Dose 2 mg .ROUTE .STK-MED ONE Stop: 07/19/21 15:49 Last Admin: 07/19/21 17:03 Dose: 2 mg Documented by: [id number] Morphine Sulfate (Morphine Sulfate 2 Mg/Ml Carp) Confirm Administered Dose 2 mg .ROUTE .STK-MED ONE Stop: 07/19/21 15:04 Last Admin: 07/19/21 15:10 Dose: Not Given Documented by: [id number] Morphine Sulfate (Morphine Sulfate 2 Mg/Ml Carp) 2 mg IV NOW STA Stop: 07/19/21 15:03 Last Admin: 07/19/21 15:08 Dose: 2 mg Documented by: [id number] Nicardipine HCl (Nicardipine Hcl Inj 2.5 Mg/Ml 10 Ml Amp) Confirm Administered Dose 25 mg .ROUTE .[employer] ONE Stop: 07/19/21 15:48 Last Admin: 07/19/21 16:57 Dose: 25 mg Documented by: [id number] Nitroglycerin (Nitroglycerin Sl 0.4 Mg/Tab Tab) Confirm Administered Dose 0.4 mg .ROUTE .[place] ONE Stop: 07/19/21 14:58 Last Admin: 07/19/21 15:01 Dose: 0.4 mg Documented by: [id number] Nitroglycerin (Nitroglycerin 2% Ointment 30gm Tube) Confirm Administered Dose 18 inch .ROUTE .[employer] ONE Stop: 07/19/21 17:12 Last Admin: 07/19/21 18:00 Dose: Not Given Documented by: [id number] Nitroglycerin/Dextrose (Nitroglycerin/D5w 100mcg/Ml 20ml Syr) Confirm Adm inistered Dose 2,000 mcg .ROUTE .[place] ONE Stop: 07/19/21 15:49 Last Admin: 07/19/21 16:57 Dose: 2,000 mcg Documented by: [id number] Ondansetron HCl (Ondansetron Inj 2 Mg/Ml 2 Ml Vial) Confirm Administered Dose 4 mg .ROUTE .[employer] ONE Stop: 07/19/21 15:04 Last Admin: 07/19/21 15:10 Dose: Not Given Documented by: [id number] Ondansetron HCl (Ondansetron Inj 2 Mg/Ml 2 Ml Vial) 4 mg IV NOW STA Stop: 07/19/21 15:03 Last Admin: 07/19/21 15:08 Dose: 4 mg Documented by: [id number] Imaging Data Radiologist's Impression: Chest X-Ray 07/19/21 14:38 XR chest 1V portable CLINICAL HISTORY: Atypical chest pain. COMPARISON STUDY: Chest radiograph May 15, 2021. FINDINGS: Lung volumes are normal. Lungs are clear. There is no pneumothorax or pleural effusion. Cardiac size is normal. Mediastinal contours are normal. There is no evidence for pulmonary edema. Multiple old left rib fractures are in cidentally noted. Electronic device projects over the left chest. IMPRESSION: No acute cardiopulmonary findings. ACT 112: Negative or not required by law. Electronically signed by: Fuad Harris M.D. 07/19/2021 3:44 PM Discharge Plan Visit Data Chief Complaint: Chest Pain Stated Complaint: CHEST PAIN ED Provider: Stu Osullivan Discharge Problem: Precordial chest pain, SOB (shortness of breath), History of coronary artery disease, Abnormal ECG Patient Disposition: Admitted As Inpatient Condition: Fair Discharge Instructions Interventions: ED Discharge Assessment Last Done: 07/19/21 15:46
[2021-07-19 15:17] LABS: Partial Thromboplastin Ratio 0.9; Partial Thromboplastin Time 24.8 Seconds (21.0-31.0)
[2021-07-19 15:27] LABS: Alanine Aminotransferase 28 U/L (7-52); Albumin Globulin Ratio 1.1 (0.9-2); Albumin Level 4.4 gm/dl (3.4-5.0); Alkaline Phosphatase 130 U/L (34-104); Anion Gap 10 (3-11); Aspartate Aminotransferase 23 U/L (13-39); BUN Creatinine Ratio 20.5 (10-20); Bilirubin,Total 0.5 mg/dl (0.2-1.0); Blood Urea Nitrogen 18 mg/dl (6-23); Calcium 9.9 mg/dl (8.5-10.1); Carbon Dioxide 27 mmol/L (21-32); Chloride 99 mmol/L (98-107); Creatinine Clr Calc Pharmacy 75.1 ml/min; Est GFR (African American) 102.3 ml/min; Est GFR (Non-African American) 88.3 ml/min; Globulin 3.9 gm/dl (2.5-4.0); Glucose 194 mg/dl (70-99(Fasting)); Sodium 136 mmol/L (136-145); Total Protein 8.3 gm/dl (6.0-8.3)
[2021-07-19 15:29] LABS: Troponin I < 0.03 ng/ml (0-0.04)
--- NOTE | 2021-07-19 15:46 | XRay Report ---
XR chest 1V portable CLINICAL HISTORY: Atypical chest pain. COMPARISON STUDY: Chest radiograph May 15, 2021. FINDINGS: Lung volumes are normal. Lungs are clear. There is no pneumothorax or pleural effusion. Car diac size is normal. Mediastinal contours are normal. There is no evidence for pulmonary edema. Multi ple old left rib fractures are incidentally noted. Electronic device projects over the left chest. IMPRESSION: No acute cardiopulmonary findings. ACT 112: Negative or not required by law. Electronically signed by: Fuad Harris M.D. 07/19/2021 3:44 PM
[2021-07-19] MEDS ORDERED: HEPARIN (PORCINE) 1000 UNIT/ML 10 ML (CATH LAB USE ONLY) ONE (15:47)
[2021-07-19] MEDS ORDERED: niCARdipine HCL INJ 2.5 MG/ML 10 ML AMP ONE (15:47)
[2021-07-19] MEDS ORDERED: fentaNYL citrate 100 MCG/2 ML VIAL ONE (15:47)
[2021-07-19] MEDS ORDERED: NITROGLYCERIN/D5W 100MCG/ML 20ML SYR ONE (15:48)
[2021-07-19] MEDS ORDERED: MIDAZOLAM HCL 1 MG/ML 2ML VIAL ONE (15:48)
[2021-07-19] MEDS ORDERED: LIDOCAINE 1% LOCAL 20 ML VIAL ONE (15:49)
[2021-07-19] MEDS ORDERED: ADENOSINE IV SOLN 3 MG/ML 20 ML VIAL IV ONE (16:26)
[2021-07-19] MEDS ORDERED: NITROGLYCERIN 2% OINTMENT 30GM TUBE ONE (17:11)
--- NOTE | 2021-07-19 17:29 | Post Anesthesia Assessment ---
Date of Service July 19, 2021 Post Sedation Assessment Vital Signs Temp Pulse Pulse Resp BP BP Pulse Ox 07/19/21 15:16 66 20 113/67 97 07/19/21 15:00 78 22 96/57 L 98 07/19/21 14:35 98.4 F 70 18 132/87 95 Recovery Score Activity: Moves 4 extremities Respiration: Deep Breath/Cough Circulation: +/-20% PreAnes Value Consciousness: Fully Awake Oxygen Saturation: O2 needed for >90% Discharge Sedation Level of Care: Fast Track Phase II Post Sedation Plan On clinical assessment, the patient appears to have tolerated the sedation without complications. Patient is recovering as anticipated. Patient will continue to be monitored by nursing and may be discharged when sedation discharge criteria are met per below protocol. Upon Completions of procedure up to 15 minutes continue every 5 minute vital signs and the P.A.R. score; then discharge to a Phase I or Fast Track to Phase II per the following guidelines: * Discharge Patient to appropriate Phase II area if PAR is 8 or greater or return to pre- procedure baseline. The post - procedure orders will be as directed. * If PAR score is less than 8 or not return to pre-procedure baseline then patient will follow Phase I monitoring till PAR is reached for Phase II. The Phase I may be done in procedure room or may call to secure a Phase I area. * If naloxone or flumazenil are used for reversal, hold in Phase I for continued monitoring from when last reversal dose was given for a minimum of 60 minutes or longer pending the nurse and/or physician discretion of patient condition before discharge to Phase II. Please call the Sedation Physician to re-evaluate and complete post-note for discharge to Phase II area. Do NOT discharge from procedure sedation or Phase 1 until post- sedation evaluation note is complete by procedure /sedation MD Sedation Discharge Instructions to be given to the patient at discharge to home.
--- NOTE | 2021-07-19 17:32 | Pre Anesthesia Assessment ---
Date of Service July 19, 2021 Pre Sedation Assessment Vital Signs Temp Pulse Pulse Resp BP BP Pulse Ox 07/19/21 15:16 66 20 113/67 97 07/19/21 15:00 78 22 96/57 L 98 07/19/21 14:35 98.4 F 70 18 132/87 95 Cardiovascular RRR, no murmur, no edema Respiratory normal respiratory effort, lungs clear to auscultation Pre-Sedation Airway Assessment Smoking Status: Never smoker Hx Sleep Apnea: No Hx Difficult Intubation: No Thyromental Distance: > or= 3.5 Finger Breadths Mallampati Class: III ASA: ASA3 Procedure Planning Contraindications for Sedation: none Current Medications Reviewed: Yes Notes The planned sedation has been discussed with the patient. Informed Consent was obtained. I have identified the patient, determined the appropriateness of sedation and have assessed the patient immediately prior to the procedure. All medicine(s) and interventions are by my order.
--- NOTE | 2021-07-19 17:42 | Electrocardiogram Report ---
Test Reason : Blood Pressure : / mmHG Vent. Rate : 074 BPM Atrial Rate : 074 BPM P-R Int : 152 ms QRS Dur : 088 ms QT Int : 390 ms P-R-T Axes : 069 -73 089 degrees QTc Int : 432 ms Normal sinus rhythm Low voltage QRS Left anterior fascicular block Cannot rule out Anteroseptal infarct (cited on or before 10-MAY-2021) T wave abnormality, consider lateral ischemia Abnormal ECG When compared with ECG of 19-JUL-2021 14:27, (unconfirmed) No significant change was found Confirmed by Lam Munoz ([id number]) on 07/19/2021 5:42:05 PM Referred By: REFERRED SELF Confirmed By:Delmar Munoz
--- NOTE | 2021-07-19 17:43 | Electrocardiogram Report ---
Test Reason : Blood Pressure : / mmHG Vent. Rate : 065 BPM Atrial Rate : 065 BPM P-R Int : 160 ms QRS Dur : 092 ms QT Int : 436 ms P-R-T Axes : 073 -72 086 degrees QTc Int : 453 ms Normal sinus rhythm Left axis deviation Low voltage QRS Cannot rule out Anteroseptal infarct (cited on or before 10-MAY-2021) Abnormal ECG When compared with ECG of 19-JUL-2021 14:52, (unconfirmed) No significant change was found Confirmed by Lam Munoz ([id number]) on 07/19/2021 5:43:18 PM Referred By: REFERRED SELF Confirmed By:Delmar Munoz
[2021-07-19] MEDS ORDERED: ACETAMINOPHEN 325 MG TAB PO PRN (17:46)
[2021-07-19] MEDS ORDERED: SODIUM CHLORIDE 0.9% 1000ML 1,000 ML IV SCH (18:00)
[2021-07-19] MEDS: NITROGLYCERIN 2% OINTMENT 30GM TUBE EXT SCH (18:30)
[2021-07-19] MEDS ORDERED: MELATONIN 3 MG TAB PO PRN (18:33)
[2021-07-19] MEDS ORDERED: GLUCAGON FOR INJ 1 MG VIAL SQ PRN (18:34)
[2021-07-19] MEDS ORDERED: CARBOHYDRATES FOR HYPOGLYCEMIA PO PRN (18:34)
[2021-07-19] MEDS ORDERED: DEXTROSE 50% 50 ML SYRINGE IV PRN (18:34)
[2021-07-19] MEDS ORDERED: GLUCOSE 10 TABS/TUBE PO PRN (18:34)
[2021-07-19] MEDS ORDERED: GLUCOSE 40% GEL 15 GM TUBE PO PRN (18:34)
--- NOTE | 2021-07-19 18:38 | Cardiac Catheterization ---
[facility] Data: [place] Cardiac Status Clinical evaluation leading to the procedure CAD Presenation: Positive Stress Test Anginal Classification: CCS IV Heart Failure: No Cardiogenic Shock within 24 Hours: No Cardiac Arrest within 24 Hours: No Imaging Studies Past 6 Months: Yes Stress Studies Past 6 Months: No Diagnostic Physicians Name: Lam Guerrier MD Closure Device Percutaneous Entry Location: Radial Closure Device: Radial Band Recommendations: CABG Intraprocedure Events Significant Disection: No Perforation: No Cardiac Cath Procedure Full Procedure Date July 19, 2021 Pre-Procedure Diagnosis Pre-Procedure Diagnosis: Acute Coronary Syndrome AUC Score AUC Score: 7 Post-Procedure Diagnosis Post-Procedure Diagnosis: Severe CAD and Normal Intracardiac Pressures Procedure(s) Performed Procedure(s) Performed: Coronary Angiography, Left Heart Cath and Fractional Flow [employer] Contract Associate Manager Lam Guerrier MD Friction Saw Operator(s) [place] Estimated Blood Loss Estimated Blood Loss: 5 Medication(s) Medication(s): Adenosine, Fentanyl, Heparin, Lidocaine 1%, Nicardipine, Nitroglycerin and Versed Summary of Findings Indication: Prior anterior MD 2 months ago with 2 ERIC proximal to mid LAD. Residual ostial LAD/circumflex disease. Here with persistent chest pain, presyncope began in cardiac rehab Access: 6 Fr right radial artery Catheters: [place] EBU 3.5 guide Findings: LM -normal caliber, mildly calcified, 20% distal LAD -medium caliber, 70% ostial stenosis, widely patent proximal to mid stents, 60% latemid stenosis. Moderate D1 with 50% proximal disease. OSCAR-2 flow through LAD stents to apex. Circumflex -dominant, large caliber, 50-60% ostial. Large OM1 without significant disease. Mid to distal circumflex and small left PDA without disease. RCA -small, nondominant. FFR of LAD/circumflex procedure: -Left main cannulated with EBU 3.5 guide guide -BMW wire placed into distal LAD -ACIST Catheter placed across stenosis -Pd/Pa 0.89 -FFR 0.78 BMW wire removed from LAD and navigated into distal OM -ACIST Catheter placed across stenosis -Pd/Pa 0.96 -FFR 0.87 -Coronary angiography revealed no apparent complications post wire/catheter removal Arterial Closure: TR band Summary: 1. Severe single-vessel CAD 70% ostial LAD stenosis just before patent proximal to mid stents. 60% latemid LAD stenosis after stents with OSCAR II flow (FFR 0.78) Jailed D1 50% proximal disease 50 to 60% ostial dominant circumflex (FFR 0.87) 2. Normal left-sided filling pressure Recommendations: Discussed option of complex PCI involving ostial LAD versus CABG in the setting of diabetes, LV dysfunction. Patient interested in pursuing CABG. Discussed with cardiac surgery at [facility]. Hold clopidogrel. Continue heparin infusion, Nitropaste. Hemodynamics Rest Ao:: 86/54/64 Final Ao: 110/55/76 LV: 107/13 Recommendations Recommendations: CABG Specimens Specimens: None Radiation Exposure (mGy) 1031 Contrast (mls) 80 Drains Drains: none Anesthesia moderate Procedural Complication(s) None Disposition PCU I attest to the content of the Intraoperative Record and any orders documented therein. Any exceptions are noted below. [facility] Card Cath Procedure Codes Cardiac Catheterization Procedure 1: Cardiovascular Cath Procedures: 77820 Coronaries and LHC (+/-LV) Procedure 2: Cardiovascular Cath Procedures: 62773 (Doppler) Pressure Wire Procedure 3: Cardiovascular Cath Procedures: 53352 (Doppler) Pressure Wire Addl vessel Moderate Sedation Procedure 1: Sedation/Anesthesia: 99495 Mod Sedation by the same physician;Init15 Min Child Age 5 & Up Procedure 2: Sedation/Anesthesia: 68018 Mod Sedation by the same physician; Ea [id number] Minutes PG Care Time/CCT Total # of Minutes Spent Total Time Spent with Patient: Total time spent is greater than 50% in coordination of care (as documented) at patient's floor/unit and/or counseling patient:
--- NOTE | 2021-07-19 18:45 | History & Physical Report ---
Date of Service July 19, 2021 Assessment & Plan (1) Chest pain: (2) CAD (coronary artery disease): (3) Ischemic cardiomyopathy: (4) Hypertension: (5) Diabetes mellitus, type 2: (6) Tobacco abuse: Plan: This is a 70-year-old male who has significant past medical history of CAD, T2DM, HTN, HLD, chronic back pain, GERD, depression with anxiety who presents to ED secondary to chest pain x45 minutes prior to arrival. Chest pain CAD - hx of Anterior [place] s/p stent in 04/2021 s/p cardiac cath: Summary: 1. Severe single-vessel CAD 70% ostial LAD stenosis just before patent proximal to mid stents. 60% latemid LAD stenosis after stents with OSCAR II flow (FFR 0.78) Jailed D1 50% proximal disease 50 to 60% ostial dominant circumflex (FFR 0.87) Cardiology discussed options with patient of complex PCI versus CABG. Patient interested in pursuing CABG. Hold Plavix, continue heparin infusion and Nitropaste. Cardiology to further discuss with patient in morning regarding outpatient procedure versus transfer Continue aspirin, statin, lisinopril and metoprolol T2DM Last A1c 8.2 on 05/16 Obtain A1c in a.m. Hold Jardiance and Trulicity Lantus/NovoLog per protocol HTN Continue metoprolol, Lasix and lisinopril Depression with anxiety Continue Effexor Chronic back pain Continue gabapentin and tramadol Tobacco abuse Continue to encourage smoking cessation DVT prophylaxis: Heparin infusion Dispo: PCU PCP: Dr. Jurado Full code She was seen and examined in collaboration with Dr. Park, please see addendum Discussed case outside of room to await with primary pig machine supervisor Dr. Guerrier. The chart was completed utilizing [employer] Speech voice recognition software. Grammatical errors, random word insertions, pronoun errors, and incomplete sentences are an occasional consequence of this system due to software limitations, ambient noise, and hardware issues. Any formal questions or concerns about the content, text, or information contained within the body of this dictation should be directly addressed to the provider for clarification. Admission and Anticipated Discharge Date Admission Date: July 19, 2021 History of Present Illness Chief Complaint: Chest pain prior to arrival x45 minutes. Primary Care Provider: Tucker Jurado MD This is a 70-year-old male who has significant past medical history of CAD, T2DM, HTN, HLD, chronic back pain, GERD, depression with anxiety who presents to ED secondary to chest pain x45 minutes prior to arrival. Of significance patient was diagnosed with an anterior STEMI 04/2021 and underwent stent placement and further medical management for known Residual ostial disease. He has been participating in cardiac rehab and while in rehab has been experiencing chest pain and dizziness. While in rehab today he developed persistent left- sided chest pain for approximately 45 minutes. Initially he did have some numbness down his left arm and radiation of pain to left shoulder. He did not have any EKG changes and troponin was unremarkable. Due to persistent chest pain Dr. Guerrier was consulted and he was taken directly to cardiac Magneto Specialist. He was found to continue to have 60 to 70% disease of his ostium. It was felt this could not be managed with stent and that patient will likely require bypass procedure at [facility]. Per cardiology is recommended that he be admitted to hospital overnight, Plavix placed on hold, IV heparin started and reevaluation in the morning. Cardiology did have conversation with patient and family regarding options. Patient currently is post cardiac catheterization. He continues to have left- sided chest pain, described as an ache, rated as a 4 out of 10, denies any associated shortness of breath, palpitations, lightheadedness, dizziness or cough. He further denies any recent illness, fever, chills, sweats, syncope, shortness of breath at rest, orthopnea, PND, nausea, vomiting, abdominal pain, changes bowel or urinary habits. Family member is at bedside. Overall he does not have a great appetite. He does drink 2 boost a day. He also has been ex periencing significant anxiety. He is an everyday smoker, is down to 3 cigarettes a day from a pack a day. He is smoked for approximately 30 to 40 years. Allergies Allergy/AdvReac Type Severity Reaction Status Date / Time adhesive AdvReac Intermediate SKIN Verified 06/29/21 13:18 REACTION WITH BLISTERS Influenza Virus Vaccines AdvReac Mild lost his Verified 06/29/21 13:18 voice esomeprazole [From Nexium] AdvReac Unknown Unknown Verified 06/29/21 13:18 oxycodone [From Percocet] AdvReac Unknown Unknown Verified 06/29/21 13:18 Home Medications Medication Instructions Recorded Confirmed Type gabapentin 300 mg capsule 300 mg PO HS 05/10/21 07/19/21 History pantoprazole 40 mg tablet,delayed 40 mg PO QAM 05/10/21 07/19/21 History release tramadol 50 mg tablet 50 mg PO DAILY PRN 05/10/21 07/19/21 History nitroglycerin 0.4 mg sublingual 0.4 mg SUBLINGUAL PRN PRN #30 tab 05/30/21 07/19/21 Rx tablet (Nitrostat) clopidogrel 75 mg tablet 75 mg PO QAM 90 Days #90 tab 06/06/21 07/19/21 Rx furosemide 20 mg tablet 20 mg PO QAM #90 tab 06/06/21 07/19/21 Rx lisinopril 5 mg tablet (Zestril) 5 mg PO QAM 90 Days #90 tab 06/06/21 07/19/21 Rx aspirin 81 mg tablet 81 mg PO QAM 06/23/21 07/19/21 History dulaglutide 4.5 mg/0.5 mL 4.5 mg SUBCUT WK 06/23/21 07/19/21 History subcutaneous pen injector (Trulicity) empagliflozin 10 mg tablet 10 mg PO QAM 06/23/21 07/19/21 History (Jardiance) tramadol 50 mg tablet 50 mg PO BID 06/23/21 07/19/21 History atorvastatin 80 mg tablet 80 mg PO QAM #90 tab 06/29/21 07/19/21 Rx metoprolol succinate 50 mg 50 mg PO QAM #90 tab 06/29/21 07/19/21 Rx tablet,extended release 24 hr venlafaxine 75 mg capsule,extended 75 mg PO HS 07/19/21 07/19/21 History release 24 hr Past Med/Surg History Medical History (Updated 07/19/21 @ 18:41 by Rosmery Park PA-C) Acute ST segment elevation [place] 05/10/21 treated at [facility], cardiac cath with 2 stent [address] follows with Dr [place] Guerrier. Diabetes mellitus, type 2 NIDDM GERD (gastroesophageal reflux disease) History of diabetic ulcer of foot follows with diabetic band aid machine operator. fully healed currently. Hyperlipidemia Hypertension Medical cannabis use On anticoagulant therapy Peripheral neuropathy Surgical History History of cardiac cath (05/10/21) [facility] History of carpal tunnel surgery bilateral History of cervical spinal surgery C5-C6 fusion with 90% rom - difficulty/painful to look up. History of colonoscopy History of esophagogastroduodenoscopy (EGD) History of heart artery stent (05/10/21) x2 drug eluting stents History of lumbar surgery lumbar fusion L4-L5. History of open reduction and internal fixation (ORIF) procedure Left Humerus S/P hardware removal Left humerus Family History Mother Diabetes Breast cancer Macular degeneration Father Diabetes Heart disease Stroke Other No family history of adverse response to anesthesia Social History Smoking Status: Never smoker Tobacco Type: Cigarettes packs per day: 0.5; Years Smoked: 20; Cigarettes Per Day: 3; Second Hand Exposure: No; Hx Alcohol Use: Yes Alcohol type: wine Hx Substance Use: Yes Last Used Substance: Days (ago) Last Used Substance Other:: within 24 hours Preferred Language: Hungarian Communication Ability: Effective Roof Truss Builder Required: No Beliefs That Will Affect Care: None marital status: Current Living Situation: Spouse current occupation: Retired How many Children do You have: 3 Other Information That Helps Us Care for You: No Feels Safe at Home: Yes Safety Concerns: Feels Safe At This Time Assistive Devices: Denture - Upper, Denture - Lower and Glasses Review of Systems Review of Systems: All systems reviewed & are unremarkable except as noted in HPI & below Physical Exam Physical Exam: Constitutional: WD/WN, vitals as above, NAD, sitting up in bed, pleasant, conversing easily Head: Normocephalic, Atraumatic Eyes: PERRL, conjunctivae normal, anicteric sclerae ENMT: external ear and nose normal, oropharynx normal Neck: trachea midline, no thyromegaly normal visual inspection Respiratory: normal respiratory effort, lungs clear to auscultation, no wheeze, rales, rhonchi. Normal insp/exp effort, no accessory muscle use Cardiovascular: RRR, no murmur, no edema Vessels: no JVD or carotid bruit Chest: normal inspection of chest, right radial band in place Abdomen: normal bowel sounds, soft, nontender, no hepatosplenomegaly Musculoskeletal: no cyanosis or clubbing, extremities motor strength 5/5 Skin: no rashes, warm and dry normal turgor Neurologic: PERRL, EOMI, accommodation nl, no face palsy, no dysarthria CN's II-XI intact bilaterally and moves all extremities Psychiatric: A+Ox3, euthymic affect Lymphatic: no cervical or axillary lymphadenopathy : deferred Results & Data Results & Data ([facility]) Vital Signs (Past 12 Hours) Vital Signs Temp Pulse Pulse Resp BP BP Pulse Ox 07/19/21 15:16 66 20 113/67 97 07/19/21 15:00 78 22 96/57 L 98 07/19/21 14:35 36.9 C 70 18 132/87 95 Diagnostic Findings Chest X-Ray 07/19/21 14:38 XR chest 1V portable CLINICAL HISTORY: Atypical chest pain. COMPARISON STUDY: Chest radiograph May 15, 2021. FINDINGS: Lung volumes are normal. Lungs are clear. There is no pneumothorax or pleural effusion. Cardiac size is normal. Mediastinal contours are normal. There is no evidence for pulmonary edema. Multiple old left rib fractures are incidentally noted. Electronic device projects over the left chest. IMPRESSION: No acute cardiopulmonary findings. ACT 112: Negative or not required by law. Electronically signed by: Fuad Harris M.D. 07/19/2021 3:44 PM Medications Administered Current Inpatient Medications Acetaminophen (Acetaminophen 325 Mg Tab) 650 mg PO Q4H PRN PRN Reason: MILD Pain (Scale 1,2,3) Stop: 08/18/21 17:45 Aspirin (Aspirin 81 Mg Ectab) 81 mg PO QAM [facility] Stop: 08/19/21 08:59 Atorvastatin Calcium (Atorvastatin 40 Mg Tab) 80 mg PO QAM [facility] Stop: 08/19/21 08:59 Dextrose (Dextrose 50% 50 Ml Syringe) 25 - 50 ml IV UD PRN; Protocol PRN Reason: Hypoglycemia Protocol Stop: 08/18/21 18:33 Gabapentin (Gabapentin 300 Mg Cap) 300 mg PO HS [facility] Stop: 08/18/21 20:59 Glucagon (Glucagon For Inj 1 Mg Vial) 1 mg SQ UD PRN; Protocol PRN Reason: Hypoglycemia Protocol Stop: 08/18/21 18:33 Glucose (Glucose 10 Tabs/Tube) 4 - 8 tabs PO UD PRN; Protocol PRN Reason: Hypoglycemia Protocol Stop: 08/18/21 18:33 Glucose (Glucose 40% Gel 15 Gm Tube) 15 - 30 gm PO UD PRN; Protocol PRN Reason: Hypoglycemia Protocol Stop: 08/18/21 18:33 Heparin Sodium/Dextrose (Heparin Iv Adult Wt-Based Standard *No* Bolus Protocol) 1 ea IV Q30M [facility]; Protocol Stop: 08/18/21 17:59 Sodium Chloride (Nss 1000ml) 1,000 mls @ 100 mls/hr IV .Q10H [facility] Stop: 07/19/21 22:59 Last Admin: 07/19/21 18:31 Dose: 100 mls/hr Documented by: Heparin Sodium/Dextrose (Heparin Sodium/Dextrose) 25,000 units in 500 mls @ 0.02 mls/hr IV .Q24H [facility]; Protocol Stop: 08/18/21 18:14 Insulin Aspart (Insulin Aspart Per Unit) 0 units SC ACHS [facility] Stop: 08/18/21 20:59 Insulin Glargine (Insulin Glargine Solostar 100 Units/Ml 3 Ml Pen) 0 - 12 units SC BID [facility]; Protocol Stop: 08/18/21 20:59 Lisinopril (Lisinopril 5 Mg Tab) 5 mg PO QAM [facility] Stop: 08/19/21 08:59 Melatonin (Melatonin 3 Mg Tab) 3 mg PO HS PRN PRN Reason: Sleep Stop: 08/18/21 18:32 Metoprolol Tartrate (Metoprolol Tartrate 25 Mg Tab) 25 mg PO BID [facility] Stop: 08/18/21 20:59 Miscellaneous (Carbohydrates For Hypoglycemia ) 15 - 30 gm PO UD PRN PRN Reason: Hypoglycemia Protocol Stop: 08/18/21 18:33 Nitroglycerin (Nitroglycerin Sl 0.4 Mg/Tab Tab) 0.4 mg SL PRN PRN PRN Reason: Pain Stop: 08/18/21 15:01 Last Admin: 07/19/21 15:10 Dose: 0.4 mg Documented by: Nitroglycerin (Nitroglycerin 2% Ointment 30gm Tube) 1 inch EXT Q6 [facility] Stop: 08/18/21 17:59 Last Admin: 07/19/21 18:30 Dose: Not Given Documented by: Pantoprazole Sodium (Pantoprazole 40 Mg Tab) 40 mg PO QAM [facility] Stop: 08/19/21 08:59 Tramadol HCl (Tramadol Hcl 50 Mg Tablet) 50 mg PO BID [facility] Stop: 08/18/21 20:59 Venlafaxine HCl (Venlafaxine Hcl Xr 75 Mg Capxr) 75 mg PO HS [facility] Stop: 08/18/21 20:59 ECG Rate (beats per minute): 74 Rhythm: normal sinus Findings: + LAFB and + nonspecific-ST abn COVID-19 Results Results COVID-19 Adm Lab Results: RBC 4.98 M/uL (4.7-6.1) 07/19/21 WBC 6.53 K/uL (4.8-10.8) 07/19/21 Hgb 17.1 g/dL (14.0-18.0) 07/19/21 Hct 49.0 % (42-52) 07/19/21 Plt Count 222 K/uL (130-400) 07/19/21 Neutrophils (%) (Auto) 57.7 % 07/19/21 Lymphocytes (%) (Auto) 28.3 % 07/19/21 Monocytes # (Auto) 0.64 K/uL (0.11-0.59) H 07/19/21 Eosinophils # (Auto) 0.23 K/uL (0-0.5) 07/19/21 Immature Granulocyte % (Auto) 0.2 % 07/19/21 Neutrophils # (Auto) 3.77 K/uL (1.4-6.5) 07/19/21 Lymphocytes # (Auto) 1.85 K/uL (1.2-3.4) 07/19/21 Monocytes # (Auto) 0.64 K/uL (0.11-0.59) H 07/19/21 Eosinophils # (Auto) 0.23 K/uL (0-0.5) 07/19/21 Basophils # (Auto) 0.03 K/uL (0-0.2) 07/19/21 Immature Granulocyte # (Auto) 0.01 K/uL (0.00-0.02) 07/19/21 Na 136 mmol/L (136-145) 07/19/21 K 4.0 mmol/L (3.5-5.1) 07/19/21 Cl 99 mmol/L (98-107) 07/19/21 CO2 27 mmol/L (21-32) 07/19/21 Anion Gap 10 (3-11) 07/19/21 BUN 18 mg/dl (6-23) 07/19/21 Creatinine 0.88 mg/dl (0.6-1.4) 07/19/21 BUN/Creatinine Ratio 20.5 (10-20) H 07/19/21 Glucose Level 194 mg/dl (70-99(Fasting)) H 07/19/21 Ca 9.9 mg/dl (8.5-10.1) 07/19/21 Total Bilirubin 0.5 mg/dl (0.2-1.0) 07/19/21 AST/SGOT 23 U/L (13-39) 07/19/21 ALT/SGPT 28 U/L (7-52) 07/19/21 Alkaline Phosphatase 130 U/L (34-104) H 07/19/21 Total Protein 8.3 gm/dl (6.0-8.3) 07/19/21 Albumin 4.4 gm/dl (3.4-5.0) 07/19/21 Globulin 3.9 gm/dl (2.5-4.0) 07/19/21 Albumin/Globulin Ratio 1.1 (0.9-2) 07/19/21 Troponin I < 0.03 ng/ml (0-0.04) 07/19/21 PTT 24.8 Seconds (21.0-31.0) 07/19/21 INR 1.0 (0.9-1.1) 07/19/21 SARS-CoV-2, RNA, NAAT NEGATIVE (NEGATIVE) 07/19/21 Chest X-Ray 07/19/21 Code Status & VTE Plan Code Status FULL CODE VTE Prophylaxis Plan VTE Prophylaxis will be ordered: Yes Supervising Physician Co-Signing Physician Notes Attending addendum: The patient was seen and examined in telemetry unit following cardiac cath Is a 70-year-old male with significant past medical history of CAD status post cardiac stent placement and also history of diabetes and hypertension was admitted with chest pain for about 45 minutes duration He did have persistent ST elevation and was taken to the cardiac Magneto Specialist Was noted to have severe single-vessel disease and was advised for possible surgery He still complains to have some pain in the precordial area On examination Denies any other significant symptoms except minimal chest pain pain Hemodynamically stable Chestclear to auscultate bilaterally Heart-S1-S2, regular Abdomen-benign Extremities-negative for any edema His admission labs, EKG and imaging studies reviewed Has significant CAD status post stent placement and underwent cardiac cath and diagnosed with severe single-vessel disease Appreciate cardiology input and recommendation for possible surgery down the line Agree with assessment and plan as outlined above by Rosmery Park
[2021-07-19] MEDS: METOPROLOL TARTRATE 25 MG TAB PO SCH (20:28)
[2021-07-19] MEDS: GABAPENTIN 300 MG CAP PO SCH (20:43)
[2021-07-19] MEDS: VENLAFAXINE HCL XR 75 MG CAPXR PO SCH (20:43)
[2021-07-19] MEDS: INSULIN ASPART PER UNIT SC SCH (20:44)
[2021-07-19] MEDS: INSULIN GLARGINE SOLOSTAR 100 UNITS/ML 3 ML PEN SC SCH (20:44)
[2021-07-19] MEDS: traMADol HCL 50 MG TABLET PO SCH (20:45)
[2021-07-19] MEDS: HEPARIN SODIUM/DEXTROSE 25,000 UNITS/500 ML BAG IV SCH (21:48)
--- NOTE | 2021-07-19 22:56 | Cardiology Consultation ---
Date of Consultation July 19, 2021 Assessment & Plan (1) Chest pain: 2. Prior anterior STEMIpost ERIC x2 to LAD 3. Residual severe ostial LAD disease, moderate ostial circumflex 4. Ischemic cardiomyopathy-EF 40 to 45% apical akinesis. 5. Resolved LV apical thrombus 6. Type 2 diabetes No high risk occlusive disease to explain rest pain on cardiac catheterization but does have flow-limiting LAD disease likely contributing to his recurrent exertional symptoms. Patient is significantly limited on essentially maximally tolerated antianginal therapy. Needs revascularization. Complex PCI of LAD considered. We also discussed CABG in the setting of diabetes, LV dysfunction. Has struggled following prior stenting and he wishes definitive management. Discussed with [facility] cardiac surgery, Dr. Hollins who would be willing to care for patient on transfer or as an outpatient. Time of surgery complicated by clopidogrel which he took this morning. Discussed options with patient and daughter. For now plan to monitor overnight on telemetry, heparin infusion, Nitropaste. Hold clopidogrel. Trend troponins. Repeat echocardiogram in a.m. Decision regarding transfer pending clinical course. History of Present Illness Attending Physician: Ana Maria Park MD History of Present Illness Mr. Laura is a 70-year-old man with coronary artery disease post anterior STEMI treated with primary PCI 2 months ago who returns acute onset chest pain, presyncope. Other medical issues include type 2 diabetes on oral therapy complicated by peripheral neuropathy, active tobacco abuse until PA, dyslipidemia, GERD. Patient had recurrent episodes of chest pain, presyncope with exertion since his initial procedure. Mild LV dysfunction persists on most recent echo. Has been wearing an event monitor. Actively participating with cardiac rehab but has had recurrent exertional symptoms. Today cardiac rehab developed left-sided chest pain reminiscent of his prior PA with associated presyncope. Taken to ED ECG showed sinus rhythm with anterior Q waves and unchanged borderline precordial ST elevations. Taken urgently for cardiac catheterization which revealed no acute occlusive disease. Noted to have severe ostial LAD, moderate mid LAD disease. Proximal to mid LAD stents patent. FFR of LAD positive at 0.78. Had moderate ostial circumflex disease negative by FFR. Prior cardiac studies: Cardiac cath/PCI 05/10/2021: 55% ostial LAD, 100% mid LAD; 45% ostial dominant LCx. Proximal to mid LAD 2 overlapping ERIC (3.0 x 30, 2.75 x 26 [place]; postdilated with 3.5 NC) jailed D1 with 50% ostial stenosis Echo 05/10/2021: LVEF 40 to 45%, apical akinesis mid anterior anteroseptal hypokinesis, mild to LVH Echo 05/12/2021: LV apical thrombus (1.3 x 0.9 cm). Echo 06/22/2021: LVEF 40-45%, akinetic apex, no LV thrombus Allergies Allergy/AdvReac Type Severity Reaction Status Date / Time adhesive AdvReac Intermediate SKIN Verified 06/29/21 13:18 REACTION WITH BLISTERS Influenza Virus Vaccines AdvReac Mild lost his Verified 06/29/21 13:18 voice esomeprazole [From Nexium] AdvReac Unknown Unknown Verified 06/29/21 13:18 oxycodone [From Percocet] AdvReac Unknown Unknown Verified 06/29/21 13:18 Home Medications Medication Instructions Recorded Confirmed Type gabapentin 300 mg capsule 300 mg PO HS 05/10/21 07/19/21 History pantoprazole 40 mg tablet,delayed 40 mg PO QAM 05/10/21 07/19/21 History release tramadol 50 mg tablet 50 mg PO DAILY PRN 05/10/21 07/19/21 History nitroglycerin 0.4 mg sublingual 0.4 mg SUBLINGUAL PRN PRN #30 tab 05/30/21 07/19/21 Rx tablet (Nitrostat) clopidogrel 75 mg tablet 75 mg PO QAM 90 Days #90 tab 06/06/21 07/19/21 Rx furosemide 20 mg tablet 20 mg PO QAM #90 tab 06/06/21 07/19/21 Rx lisinopril 5 mg tablet (Zestril) 5 mg PO QAM 90 Days #90 tab 06/06/21 07/19/21 Rx aspirin 81 mg tablet 81 mg PO QAM 06/23/21 07/19/21 History dulaglutide 4.5 mg/0.5 mL 4.5 mg SUBCUT WK 06/23/21 07/19/21 History subcutaneous pen injector (Trulicity) empagliflozin 10 mg tablet 10 mg PO QAM 06/23/21 07/19/21 History (Jardiance) tramadol 50 mg tablet 50 mg PO BID 06/23/21 07/19/21 History atorvastatin 80 mg tablet 80 mg PO QAM #90 tab 02/03/22 02/23/22 Rx metoprolol succinate 50 mg 50 mg PO QAM #90 tab 06/29/21 07/19/21 Rx tablet,extended release 24 hr venlafaxine 75 mg capsule,extended 75 mg PO HS 07/19/21 07/19/21 History release 24 hr Patient History Medical History Acute ST segment elevation PA 05/10/21 treated at [facility], cardiac cath with 2 stent [address] follows with Dr [place] Guerrier. 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 fully healed currently. Hyperlipidemia Hypertension Medical cannabis use On anticoagulant therapy Peripheral neuropathy Surgical History History of cardiac cath (05/10/21) [facility] History of carpal tunnel surgery bilateral History of cervical spinal surgery C5-C6 fusion with 90% rom - difficulty/painful to look up. History of colonoscopy History of esophagogastroduodenoscopy (EGD) History of heart artery stent (05/10/21) x2 drug eluting stents History of lumbar surgery lumbar fusion L4-L5. History of open reduction and internal fixation (ORIF) procedure Left Humerus S/P hardware removal Left humerus Family History Mother Diabetes Breast cancer Macular degeneration Father Diabetes Heart disease Stroke Other No family history of adverse response to anesthesia Social History Smoking Status: Never smoker Tobacco Type: Cigarettes packs per day: 0.5; Years Smoked: 20; Cigarettes Per Day: 3; Second Hand Exposure: No; Hx Alcohol Use: Yes Alcohol type: wine Hx Substance Use: Yes Last Used Substance: Days (ago) Last Used Substance Other:: within 24 hours Preferred Language: Belarusian Communication Ability: Effective Chief Service Observer Required: No Beliefs That Will Affect Care: None marital status: Current Living Situation: Spouse current occupation: Retired How many Children do You have: 3 Other Information That Helps Us Care for You: No Feels Safe at Home: Yes Safety Concerns: Feels Safe At This Time Assistive Devices: Denture - Upper, Denture - Lower and Glasses Review of Systems Review of Systems: All systems reviewed & are unremarkable except as noted in HPI & below Physical Exam Physical Exam: General: Comfortable HEENT: Sclerae anicteric, Mask in place Lungs: Clear to auscultation bilaterally, no crackles or wheezes Cardiac: Regular rate and rhythm, no murmurs. Vascular: 2+ radial pulses Abdomen: Soft, nontender Extremities: Well perfused, no peripheral edema Neuro: Nonfocal Psych: Alert orient x3, normal affect and mood Results & Data ([facility]) Vital Signs (Past 12 Hours) Vital Signs Temp Pulse Pulse Resp BP BP BP 07/19/21 21:32 105/62 07/19/21 20:09 98.1 F 61 18 98/52 L 07/19/21 18:45 60 18 07/19/21 18:30 65 18 118/65 07/19/21 18:15 67 20 07/19/21 18:02 98.2 F 64 18 115/76 07/19/21 18:00 61 16 115/73 07/19/21 17:45 51 L 16 07/19/21 15:16 66 20 113/67 07/19/21 15:00 78 22 96/57 L 07/19/21 14:35 98.4 F 70 18 132/87 Pulse Ox 07/19/21 21:32 95 07/19/21 20:09 96 07/19/21 18:45 98 07/19/21 18:30 07/19/21 18:15 94 07/19/21 18:02 97 07/19/21 18:00 96 07/19/21 17:45 96 07/19/21 15:16 97 07/19/21 15:00 98 07/19/21 14:35 95 PG Care Time/CCT Total # of Minutes Spent Total Time Spent with Patient: Total time spent is greater than 50% in coordination of care (as documented) at patient's floor/unit and/or counseling patient: Coding Level of Care Code 17001 Office/OBS Consult Lvl 4 Diagnoses Chest pain R07.9 Chest pain type: unspecified (1) Chest pain Chest pain type: unspecified Qualified Code(s): R07.9 - Chest pain, u nspecified
[2021-07-19] MEDS: Heparin IV Adult Wt-Based Standard *NO* Bolus Protocol IV SCH ×2 (23:55→23:56)
[2021-07-20] MEDS: NITROGLYCERIN 2% OINTMENT 30GM TUBE EXT SCH ×3 (01:22→11:42)
[2021-07-20 04:35] LABS: Partial Thromboplastin Ratio 3.5
[2021-07-20 04:39] LABS: Partial Thromboplastin Time 93.2 Seconds (21.0-31.0)
[2021-07-20 06:46] LABS: Basophils # (auto) 0.03 K/uL (0-0.2); Basophils % (auto) 0.4 %; Eosinophils # (auto) 0.31 K/uL (0-0.5); Eosinophils % (auto) 4.2 %; Hematocrit (blood only) 42.5 % (42-52); Hemoglobin 14.4 g/dL (14.0-18.0); Immature Granulocytes # (auto) 0.02 K/uL (0.00-0.02); Immature Granulocytes % (auto) 0.3 %; Lymphocytes # (auto) 2.63 K/uL (1.2-3.4); Lymphocytes % (auto) 35.4 %; Mean Corpuscular Hemoglobin 33.4 pg (25-34); Mean Corpuscular Hgb Conc 33.9 g/dL (32-36); Mean Corpuscular Volume 98.6 fL (80-100); Mean Platelet Volume 9.7 fL (7.4-10.4); Monocytes # (auto) 0.68 K/uL (0.11-0.59); Monocytes % (auto) 9.2 %; Neutrophils # (auto) 3.76 K/uL (1.4-6.5); Neutrophils % (auto) 50.5 %; Platelet Count 183 K/uL (130-400); RDW Coefficient of Variation 14.1 % (11.5-14.5); RDW Standard Deviation 50.6 fL (36.4-46.3); Red Blood Count 4.31 M/uL (4.7-6.1); White Blood Count 7.43 K/uL (4.8-10.8)
[2021-07-20 07:11] LABS: BUN Creatinine Ratio 15.6 (10-20); Calcium 8.6 mg/dl (8.5-10.1); Creatinine Clr Calc Pharmacy 85.8 ml/min; Est GFR (African American) 108.1 ml/min; Est GFR (Non-African American) 93.2 ml/min; Potassium 3.8 mmol/L (3.5-5.1)
[2021-07-20 07:38] LABS: Estimated Average Glucose 180 mg/dl; Hemoglobin A1C 7.9 % (4.5-5.6)
[2021-07-20] MEDS: INSULIN ASPART PER UNIT SC SCH ×4 (08:15→21:01)
--- NOTE | 2021-07-20 08:22 | XCELERA ---
[id number]
[2021-07-20] MEDS: ASPIRIN 81 MG ECTAB PO SCH (09:19)
[2021-07-20] MEDS: lisinopril 5 MG TAB PO SCH (09:19)
[2021-07-20] MEDS: PANTOprazole 40 MG TAB PO SCH (09:19)
[2021-07-20] MEDS: INSULIN GLARGINE SOLOSTAR 100 UNITS/ML 3 ML PEN SC SCH ×2 (09:19→21:02)
[2021-07-20] MEDS: METOPROLOL TARTRATE 25 MG TAB PO SCH ×2 (09:19→21:02)
[2021-07-20] MEDS: ATORVASTATIN 40 MG TAB PO SCH (09:19)
[2021-07-20] MEDS: traMADol HCL 50 MG TABLET PO SCH ×2 (09:22→21:03)
--- NOTE | 2021-07-20 10:22 | Cardiology Progress Note ---
Date of Service July 20, 2021 Assessment & Plan (1) Chest pain: Plan: 2. Prior anterior STEMIpost ERIC x2 to LAD 3. Residual severe ostial LAD disease, moderate ostial circumflex 4. Ischemic cardiomyopathy-EF 40 to 45% apical akinesis. 5. Resolved LV apical thrombus 6. Type 2 diabetes Still with some mild residual chest discomfort and mildly elevated troponin. Recommend inpatient evaluation for CABG. Patient and agreeable. Plan to transfer to [facility] when bed available. Discussed with Dr. Parry from cardiology and Dr. Kumar of cardiac surgery. In interim continue aspirin, heparin, nitropaste. Clopidogrel held Admission and Anticipated Discharge Date Admission Date: July 19, 2021 Subjective Feeling better this morning. Still some intermittent chest pain overnight, maybe 06/05. Echo reviewed -- LVEF 40-45%. apical akinesis. Unchanged from 05/2021 Telemetry reviewed -- no events. Review of Systems Review of Systems: All systems reviewed & are unremarkable except as noted in HPI & below Physical Exam Physical Exam: General: Comfortable HEENT: Sclerae anicteric, Mask in place Lungs: Clear to auscultation bilaterally, no crackles or wheezes Cardiac: Regular rate and rhythm, no murmurs. Vascular: 2+ radial pulses Abdomen: Soft, nontender Extremities: Well perfused, no peripheral edema Neuro: Nonfocal Psych: Alert orient x3, normal affect and mood Results & Data ([facility]) Vital Signs (Past 12 Hours) Vital Signs Temp Pulse Pulse Resp BP Pulse Ox 07/20/21 07:49 98.4 F 63 17 98/56 L 97 07/20/21 07:45 64 07/20/21 03:12 63 105/63 07/20/21 03:00 98.4 F 64 18 90/52 L 94 07/19/21 23:23 98.1 F 72 18 92/54 L 96 PG Care Time/CCT Total # of Minutes Spent Total Time Spent with Patient: Total time spent is greater than 50% in coordination of care (as documented) at patient's floor/unit and/or counseling patient: Coding Level of Care Code 45578 Subseq Hosp Care Lvl 3 Diagnoses Chest pain R07.9 Chest pain type: unspecified (1) Chest pain Chest pain type: unspecified Qualified Code(s): R07.9 - Chest pain, unspecified
--- NOTE | 2021-07-20 11:34 | Discharge Summary ---
Date of Service July 21, 2021 Admission HPI Per Admitting Provider This is a 70-year-old male who has significant past medical history of CAD, T2DM, HTN, HLD, chronic back pain, GERD, depression with anxiety who presents to ED secondary to chest pain x45 minutes prior to arrival. Of significance patient was diagnosed with an anterior STEMI 04/2021 and underwent stent placement and further medical management for known Residual ostial disease. He has been participating in cardiac rehab and while in rehab has been experiencing chest pain and dizziness. While in rehab today he developed persistent left- sided chest pain for approximately 45 minutes. Initially he did have some numbness down his left arm and radiation of pain to left shoulder. He did not have any EKG changes and troponin was unremarkable. Due to persistent chest pain Dr. Guerrier was consulted and he was taken directly to cardiac Business Continuity Strategy Director. He was found to continue to have 60 to 70% disease of his ostium. It was felt this could not be managed with stent and that patient will likely require bypass procedure at [facility]. Per cardiology is recommended that he be admitted to hospital overnight, Plavix placed on hold, IV heparin started and reevaluation in the morning. Cardiology did have conversation with patient and family regarding options. Patient currently is post cardiac catheterization. He continues to have left- sided chest pain, described as an ache, rated as a 4 out of 10, denies any associated shortness of breath, palpitations, lightheadedness, dizziness or cough. He further denies any recent illness, fever, chills, sweats, syncope, shortness of breath at rest, orthopnea, PND, nausea, vomiting, abdominal pain, changes bowel or urinary habits. Family member is at bedside. Overall he does not have a great appetite. He does drink 2 boost a day. He also has been experiencing significant anxiety. He is an everyday smoker, is down to 3 cigarettes a day from a pack a day. He is smoked for approximately 30 to 40 years. Admission Exam Per Admitting Provider General: Comfortable HEENT: Sclerae anicteric, Mask in place Lungs: Clear to auscultation bilaterally, no crackles or wheezes Cardiac: Regular rate and rhythm, no murmurs. Vascular: 2+ radial pulses Abdomen: Soft, nontender Extremities: Well perfused, no peripheral edema Neuro: Nonfocal Psych: Alert orient x3, normal affect and mood Principal Diagnosis Chest pain prior anterior STEMI s/p ERIC x 2 to LAD Residual Severe ostial LAD disease, moderate ostial circumflex disease Ischemic cardiomyopathy Resolved LV apical thrombus DMII Discharge Exam CONSTITUTIONAL: WNWD, vitals as above, generally well-appearing, NAD EYES: normal conjunctivae, no scleral icterus ENT: external ear and nose normal, NECK: trachea midline, RESPIRATORY: clear to auscultation bilaterally, no crackles, rales or wheezes, normal respiratory effort CARDIOVASCULAR: regular rate and rhythm, S1 and 2 heard without murmurs, gallops or rubs, no JVD, no peripheral edema CHEST: inspection of chest was normal GASTROINTESTINAL: soft, nontender, ND, no guarding MUSCULOSKELETAL: strength 5/5 throughout, head is normocephalic and atraumatic SKIN: warm and dry, radial wound closed, no redness or swelling, dressing c/d/i NEUROLOGIC: CN 2-12 grossly intact, no sensory deficit, normal cognition, normal speech, no tremor PSYCHIATRIC: alert cooperative and oriented to person, place and time. Discharge Data Allergies Allergy/AdvReac Type Severity Reaction Status Date / Time adhesive AdvReac Intermediate SKIN Verified 06/29/21 13:18 REACTION WITH BLISTERS Influenza Virus Vaccines AdvReac Mild lost his Verified 06/29/21 13:18 voice esomeprazole [From Nexium] AdvReac Unknown Unknown Verified 06/29/21 13:18 oxycodone [From Percocet] AdvReac Unknown Unknown Verified 06/29/21 13:18 Consultations 07/19/21 16:19 ED Decision to Admit Stat Procedures Performed Operation Date: 07/19/21 16:00 Actual Procedures p Cath, Left with Cors and Vent - Rigoberto Guerrier MD s Cineradiography w/Routine Exam - Rigoberto Guerrier MD s Fraction Flow [place] Addl Jenna Guerrier MD s Fraction Flow [place] SGL Jenna - Rigoberto Guerrier MD Ordered Studies 07/19/21 15:58 CL Cath Imgs for PACS use only Routine Hospital Course (1) Chest pain: (2) CAD (coronary artery disease): (3) Ischemic cardiomyopathy: (4) Hypertension: (5) Diabetes mellitus, type 2: (6) Tobacco abuse: This is a 70-year-old male who has significant past medical history of CAD, T2DM, HTN, HLD, chronic back pain, GERD, depression with anxiety who presents to ED secondary to chest pain x45 minutes prior to arrival. The pain began while he was at cardiac rehab as was associated with SOB and numbness in his LUE. EKG revealed NSR [address] elevation noted across the anterior and lateral leads. There was no significant change since EKG Apr 2021. Blood work revealed no leukocytosis or concerning anemia with a normal platelet count and no coagulopathy. There was no significant electrolyte abnormality or kidney failure present nd no concerning liver enzyme elevation. Troponin was initially negative. Chest imaging revealed no pneumonia, mediastinal widening or pneumothorax and covid testing was negative. He was given nitro, morphine, Zofran and normal saline. There was not much improvement to his chest pain after medication and he was taken immediately to the cardiac catheterization lab with Cardiology. Heart cath revealed 70% ostial LAD stenosis just before patent proximal stents. There was a 60% late-mid LAD stenosis after stents with OSCAR II flow. There was jailed D1 50% proximal disease and 50-60% ostial dominant circumflex disease. Cardiology discussed options with patient of complex PCI versus CABG. Patient interested in pursuing CABG. Plavix was held and he was continued on heparin and nitro paste, with the latter held after the development of hypotension after a couple of doses. He did have some chest pain overnight just prior to discharge. He was given his metoprolol early, but did not have additional morphine or nitroglycerin. He was continued on aspirin, statin, lisinopril and metoprolol and transferred to [facility] for evaluation by CT surgery. Total Time Total Time Spent Total Time Spent (In Minutes): 60 Discharge Plan Discharge Items Patient Disposition: Transfer Acute Care Hospital Reason For Visit: CP, ABNL EKG Discharge Diagnosis: Chest pain prior anterior STEMI s/p ERIC x 2 to LAD Residual Severe ostial LAD disease, moderate ostial circumflex disease Ischemic cardiomyopathy Resolved LV apical thrombus DMII Condition on Discharge: Fair Activity: As commented below Activity Comment: per receiving facility Non-emergency contact: Primary Care Provider and Automobile Sales Representative Call non-emergency contact if: you have any medication questions, your symptoms worsen, your pain is not controlled, your pain is worsening, your pain is unusual for you, your pain is concerning for you, you have a fever, your wound has increased redness, your wound has increased drainage and your wound pain has increased Follow-up/Referrals: Tucker Jurado MD [Primary Care Provider] - Diet: Carb Consistent or DM2 and Heart Healthy Addtl Attending Provider Instructions: You are being transferred to [facility] for continued cardiac care. It is recommended that you follow-up with your primary care provider within one week of discharge. It was a pleasure taking care of you! Please call if you have any questions or problems. You can reach a [facility] hospitalist on duty at [facility] 24 hours a day by calling [phone]. Take care of yourself. Hui Mock, DO [facility] Pending Studies at Discharge: No Stand-Alone Forms: My [facility] Skilled Items Patient informed of condition?: Yes DNR: No Discharge Level of Care: Other Communicable Disease: No Discharge Prognosis: Stable Lines: Peripheral IV Urinary Catheter: No Medications and DC Order Prescriptions: Continued clopidogrel 75 mg tablet 75 mg PO QAM 90 Days Qty: 90 RF: 3 furosemide 20 mg tablet 20 mg PO QAM Qty: 90 RF: 3 lisinopril [Zestril] 5 mg tablet 5 mg PO QAM 90 Days Qty: 90 RF: 3 atorvastatin 80 mg tablet 80 mg PO QAM Qty: 90 RF: 3 metoprolol succinate 50 mg tablet extended release 24 hr 50 mg PO QAM Qty: 90 RF: 3 nitroglycerin [Nitrostat] 0.4 mg tablet, sublingual 0.4 mg sublingual PRN PRN (Reason: chest pain) Qty: 30 RF: 0 tramadol 50 mg Tablet 50 mg PO DAILY PRN (Reason: Pain) RF: 0 pantoprazole 40 mg Tablet,Delayed Release (Dr/Ec) 40 mg PO QAM RF: 0 gabapentin 300 mg Capsule 300 mg PO HS RF: 0 tramadol 50 mg Tablet 50 mg PO BID RF: 0 aspirin 81 mg Tablet 81 mg PO QAM RF: 0 Trulicity 4.5 mg/0.5 mL Pen Injector 4.5 mg SUBCUT WK RF: 0 Jardiance 10 mg Tablet 10 mg PO QAM RF: 0 venlafaxine 75 mg Capsule,Extended Release 24hr 75 mg PO HS RF: 0 Discharge Orders: Discharge Order (Routine); Ordered 07/21/21 Ordered By: Hui Mock Admission Data Admit Date/Time: 07/19/21 17:54 Attending Provider: Hui Mock Admit Provider: Rigoberto Guerrier Primary Care Provider: Tucker Jurado Other Providers: Ana Maria Park
[2021-07-20 12:23] LABS: Partial Thromboplastin Ratio 2.8
[2021-07-20 13:06] LABS: Partial Thromboplastin Time 74.3 Seconds (21.0-31.0)
[2021-07-20] MEDS ORDERED: SODIUM CHLORIDE 0.9% 1000ML 1,000 ML IV SCH (17:50)
[2021-07-20] MEDS: HEPARIN SODIUM/DEXTROSE 25,000 UNITS/500 ML BAG IV SCH (19:26)
[2021-07-20 19:37] LABS: Partial Thromboplastin Ratio 2.7
[2021-07-20 20:32] LABS: Partial Thromboplastin Time 71.2 Seconds (21.0-31.0)
[2021-07-20] MEDS: VENLAFAXINE HCL XR 75 MG CAPXR PO SCH (21:02)
[2021-07-20] MEDS: GABAPENTIN 300 MG CAP PO SCH (21:02)
[2021-07-20] MEDS: POLYETHYLENE (MIRALAX) 17 GM PACK PO PRN (21:23)
[2021-07-20] MEDS: DOCUSATE SODIUM/SENNA 50/8.6MG TAB PO SCH (21:23)
[2021-07-21] MEDS ORDERED: POTASSIUM CHLORIDE CRTAB 20 MEQ TABCR PO STA (03:04)
[2021-07-21] MEDS ORDERED: METOPROLOL TARTRATE 25 MG TAB PO SCH (03:05)
[2021-07-21 03:53] LABS: Basophils # (auto) 0.02 K/uL (0-0.2); Basophils % (auto) 0.3 %; Eosinophils # (auto) 0.26 K/uL (0-0.5); Eosinophils % (auto) 3.8 %; Hematocrit (blood only) 40.7 % (42-52); Hemoglobin 14.3 g/dL (14.0-18.0); Immature Granulocytes # (auto) 0.01 K/uL (0.00-0.02); Immature Granulocytes % (auto) 0.1 %; Lymphocytes # (auto) 2.77 K/uL (1.2-3.4); Lymphocytes % (auto) 40.7 %; Mean Corpuscular Hgb Conc 35.1 g/dL (32-36); Mean Corpuscular Volume 96.9 fL (80-100); Monocytes # (auto) 0.57 K/uL (0.11-0.59); Monocytes % (auto) 8.4 %; Neutrophils # (auto) 3.17 K/uL (1.4-6.5); Neutrophils % (auto) 46.7 %; Platelet Count 172 K/uL (130-400)
[2021-07-21 03:58] LABS: BUN Creatinine Ratio 15.6 (10-20); Calcium 8.8 mg/dl (8.5-10.1); Creatinine Clr Calc Pharmacy 85.8 ml/min; Est GFR (African American) 108.1 ml/min; Est GFR (Non-African American) 93.2 ml/min; Magnesium 1.9 mg/dl (1.7-2.4)
[2021-07-21 04:06] LABS: Partial Thromboplastin Ratio 2.5
[2021-07-21 04:13] LABS: Partial Thromboplastin Time 65.8 Seconds (21.0-31.0)
--- NOTE | 2021-07-21 07:59 | Hospitalist Progress Note ---
Date of Service July 20, 2021 Assessment & Plan (1) Chest pain: (2) CAD (coronary artery disease): (3) Ischemic cardiomyopathy: (4) Hypertension: (5) Diabetes mellitus, type 2: (6) Tobacco abuse: Plan: This is a 70-year-old male who has significant past medical history of CAD, T2DM, HTN, HLD, chronic back pain, GERD, depression with anxiety who presents to ED secondary to chest pain x45 minutes prior to arrival. Chest pain CAD - hx of Anterior [place] s/p stent in 04/2021 s/p cardiac cath: Summary: 1. Severe single-vessel CAD 70% ostial LAD stenosis just before patent proximal to mid stents. 60% latemid LAD stenosis after stents with OSCAR II flow (FFR 0.78) Jailed D1 50% proximal disease 50 to 60% ostial dominant circumflex (FFR 0.87) Cardiology discussed options with patient of complex PCI versus CABG. Patient interested in pursuing CABG. Hold Plavix, continue heparin infusion and Nitropaste. Cardiology to further discuss with patient in morning regarding outpatient procedure versus transfer Continue aspirin, statin, lisinopril and metoprolol Did well overnight but some residual pain, decision by team to pursue inpatient eval for CABG Awaiting transfer to [facility] via ground transfer. Hypotensive overnight likely related to nitropaste, which was held. T2DM A1C is 7.9 Hold Jardiance and Trulicity Cont Lantus/NovoLog per protocol while admitted, currently at goal. HTN Continue metoprolol, Lasix and lisinopril,Held nitro as above. Hold parameters on other meds Depression with anxiety Continue Effexor Chronic back pain Continue gabapentin and tramadol Tobacco abuse Continue to encourage smoking cessation DVT prophylaxis: Heparin infusion Dispo: PCU transfer to [facility] for evaluation for CABG PCP: Dr. Jurado Full code Hui Mock DO [facility] Hospitalist Current Inpatient Medications Acetaminophen (Acetaminophen 325 Mg Tab) 650 mg PO Q4H PRN PRN Reason: MILD Pain (Scale 1,2,3) Stop: 08/18/21 17:45 Aspirin (Aspirin 81 Mg Ectab) [facility] Stop: 08/19/21 08:59 Last Admin: 07/20/21 09:19 Dose: 81 mg Documented by: Atorvastatin Calcium (Atorvastatin 40 Mg Tab) 80 mg PO QAM [facility] Stop: 08/19/21 08:59 Last Admin: 07/20/21 09:19 Dose: 80 mg Documented by: Dextrose (Dextrose 50% 50 Ml Syringe) 25 - 50 ml IV UD PRN; Protocol PRN Reason: Hypoglycemia Protocol Stop: 08/18/21 18:33 Gabapentin (Gabapentin 300 Mg Cap) 300 mg PO HS [facility] Stop: 08/18/21 20:59 Last Admin: 07/19/21 20:43 Dose: 300 mg Documented by: Glucagon (Glucagon For Inj 1 Mg Vial) 1 mg SQ UD PRN; Protocol PRN Reason: Hypoglycemia Protocol Stop: 08/18/21 18:33 Glucose (Glucose 10 Tabs/Tube) 4 - 8 tabs PO UD PRN; Protocol PRN Reason: Hypoglycemia Protocol Stop: 08/18/21 18:33 Glucose (Glucose 40% Gel 15 Gm Tube) 15 - 30 gm PO UD PRN; Protocol PRN Reason: Hypoglycemia Protocol Stop: 08/18/21 18:33 Heparin Sodium/Dextrose (Heparin Sodium/Dextrose) 25,000 units in 500 mls @ 22 mls/hr IV .[id number] [facility]; Protocol Stop: 08/18/21 18:14 Last Titration: 07/20/21 05:41 Dose: 1,100 units/hr, 22 mls/hr Documented by: Insulin Aspart (Insulin Aspart Per Unit) 0 units SC ACHS [facility] Stop: 08/18/21 20:59 Last Admin: 07/20/21 11:42 Dose: Not Given Documented by: Insulin Glargine (Insulin Glargine Solostar 100 Units/Ml 3 Ml Pen) 0 - 12 units SC BID [facility]; Protocol Stop: 08/18/21 20:59 Last Admin: 07/20/21 09:19 Dose: 6 units Documented by: Lisinopril (Lisinopril 5 Mg Tab) 5 mg PO QAM [facility] Stop: 08/19/21 08:59 Last Admin: 07/20/21 09:19 Dose: 5 mg Documented by: Melatonin (Melatonin 3 Mg Tab) 3 mg PO HS PRN PRN Reason: Sleep Stop: 08/18/21 18:32 Metoprolol Tartrate (Metoprolol Tartrate 25 Mg Tab) 25 mg PO BID [facility] Stop: 08/18/21 20:59 Last Admin: 07/20/21 09:19 Dose: 25 mg Documented by: Miscellaneous (Carbohydrates For Hypoglycemia ) 15 - 30 gm PO UD PRN PRN Reason: Hypoglycemia Protocol Stop: 08/18/21 18:33 Nitroglycerin (Nitroglycerin Sl 0.4 Mg/Tab Tab) 0.4 mg SL PRN PRN PRN Reason: Pain Stop: 08/18/21 15:01 Last Admin: 07/19/21 15:10 Dose: 0.4 mg Documented by: Nitroglycerin (Nitroglycerin 2% Ointment 30gm Tube) 1 inch EXT Q6 [facility] Stop: 08/18/21 17:59 Last Admin: 07/20/21 11:42 Dose: Not Given Documented by: Pantoprazole Sodium (Pantoprazole 40 Mg Tab) 40 mg PO QAM [facility] Stop: 08/19/21 08:59 Last Admin: 07/20/21 09:19 Dose: 40 mg Documented by: Tramadol HCl (Tramadol Hcl 50 Mg Tablet) 50 mg PO BID [facility] Stop: 08/18/21 20:59 Last Admin: 07/20/21 09:22 Dose: 50 mg Documented by: Venlafaxine HCl (Venlafaxine Hcl Xr 75 Mg Capxr) 75 mg PO HS [facility] Stop: 08/18/21 20:59 Last Admin: 07/19/21 20:43 Dose: 75 mg Documented by: Admission and Anticipated Discharge Date Admission Date: July 19, 2021 Subjective 70 yo M s/p cath Patient feeling well post procedure reprots 3/10 pain in back which is chronic but has no chest pain nitro paste overnight resulting in hypotension with BP in 80s. Denies lightheadedness Awaiting transfer to [facility] Review of Systems Review of Systems: All systems were reviewed and negative except as indicated in HPI above. Physical Exam Physical Exam: CONSTITUTIONAL: WNWD, vitals as above, generally well- appearing, NAD EYES: normal conjunctivae, no scleral icterus ENT: external ear and nose normal, NECK: trachea midline, RESPIRATORY: clear to auscultation bilaterally, no crackles, rales or wheezes, normal respiratory effort CARDIOVASCULAR: regular rate and rhythm, S1 and 2 heard without murmurs, gallops or rubs, no JVD, no peripheral edema CHEST: inspection of chest was normal GASTROINTESTINAL: soft, nontender, ND, no guarding MUSCULOSKELETAL: strength 5/5 throughout, head is normocephalic and atraumatic SKIN: warm and dry, radial wound closed, no redness or swelling, dressing c/d/i NEUROLOGIC: CN 2-12 grossly intact, no sensory deficit, normal cognition, normal speech, no tremor PSYCHIATRIC: alert cooperative and oriented to person, place and time. Results & Data Results & Data ([facility]) Vital Signs (Past 12 Hours) Vital Signs Temp Pulse Pulse Resp BP BP Pulse Ox 07/21/21 07:25 36.6 C 61 20 85/50 L 95 07/21/21 04:50 36.9 C 07/21/21 04:20 65 113/58 L 07/21/21 02:58 63 18 113/54 L 95 07/20/21 23:11 37.0 C 64 16 112/69 97 07/20/21 22:20 74 07/20/21 21:00 83 113/61
[2021-07-21] MEDS: PANTOprazole 40 MG TAB PO SCH (08:05)
[2021-07-21] MEDS: traMADol HCL 50 MG TABLET PO SCH ×2 (08:06→15:52)
[2021-07-21] MEDS: ASPIRIN 81 MG ECTAB PO SCH (08:06)
[2021-07-21] MEDS: ATORVASTATIN 40 MG TAB PO SCH (08:06)
[2021-07-21] MEDS: INSULIN GLARGINE SOLOSTAR 100 UNITS/ML 3 ML PEN SC SCH (08:07)
[2021-07-21] MEDS: lisinopril 5 MG TAB PO SCH (08:07)
[2021-07-21] MEDS: INSULIN ASPART PER UNIT SC SCH ×2 (08:08→12:55)
[2021-07-21] MEDS: DOCUSATE SODIUM/SENNA 50/8.6MG TAB PO SCH (08:09)
--- NOTE | 2021-07-21 11:30 | Cardiology Progress Note ---
Date of Service July 21, 2021 Assessment & Plan (1) Chest pain: Plan: 2. Prior anterior STEMIpost ERIC x2 to LAD 3. Residual severe ostial LAD disease, moderate ostial circumflex 4. Ischemic cardiomyopathy-EF 40 to 45% apical akinesis. 5. Resolved LV apical thrombus 6. Type 2 diabetes 7. NSVT Awaiting transfer to [facility] for CABG evaluation. Continue heparin infusion, Aspirin. Titrate beta-leo as BP allows. Continue current lisinopril, statin. Admission and Anticipated Discharge Date Admission Date: July 19, 2021 Subjective Some recurrent chest pain overnight. Chest pain free this morning. Telemetry reviewed -- 13 beat run of NSVT - reports feeling palpitations but no chest pain at that time. Review of Systems Review of Systems: All systems reviewed & are unremarkable except as noted in HPI & below Physical Exam Physical Exam: General: Comfortable HEENT: Sclerae anicteric, Mask in place Lungs: Clear to auscultation bilaterally, no crackles or wheezes Cardiac: Regular rate and rhythm, no murmurs. Vascular: 2+ radial pulses Abdomen: Soft, nontender Extremities: Well perfused, no peripheral edema Neuro: Nonfocal Psych: Alert orient x3, normal affect and mood Results & Data ([facility]) Vital Signs (Past 12 Hours) Vital Signs Temp Pulse Resp BP BP Pulse Ox 07/21/21 10:43 98.1 F 65 18 125/70 96 07/21/21 07:25 97.9 F 61 20 85/50 L 95 07/21/21 04:50 98.4 F 07/21/21 04:20 65 113/58 L 07/21/21 02:58 63 18 113/54 L 95 PG Care Time/CCT Total # of Minutes Spent Total Time Spent with Patient: Total time spent is greater than 50% in coordination of care (as documented) at patient's floor/unit and/or counseling patient: Coding Level of Care Code 86996 Subseq Hosp Care Lvl 2 Diagnoses Chest pain R07.9 Chest pain type: unspecified (1) Chest pain Chest pain type: unspecified Qualified Code(s): R07.9 - Chest pain, unspecified
[2021-07-21] MEDS: POLYETHYLENE (MIRALAX) 17 GM PACK PO PRN (15:39)
--- NOTE | 2021-07-22 22:50 | Hospitalist Progress Note ---
Date of Service July 20, 2021 (seen and examined on , documented retrospectively on ) Assessment & Plan (1) Chest pain: (2) CAD (coronary artery disease): (3) Ischemic cardiomyopathy: (4) Hypertension: (5) Diabetes mellitus, type 2: (6) Tobacco abuse: Plan: This is a 70-year-old male who has significant past medical history of CAD, T2DM, HTN, HLD, chronic back pain, GERD, depression with anxiety who presents to ED secondary to chest pain x45 minutes prior to arrival. Chest pain CAD - hx of Anterior [place] s/p stent in 04/2021 s/p cardiac cath: Summary: 1. Severe single-vessel CAD 70% ostial LAD stenosis just before patent proximal to mid stents. 60% latemid LAD stenosis after stents with OSCAR II flow (FFR 0.78) Jailed D1 50% proximal disease 50 to 60% ostial dominant circumflex (FFR 0.87) Cardiology discussed options with patient of complex PCI versus CABG. Patient interested in pursuing CABG. Hold Plavix, continue heparin infusion Cardiology to further discuss with patient in morning regarding outpatient procedure versus transfer Continue aspirin, statin, lisinopril and metoprolol Did well overnight but some residual pain, decision by team to pursue inpatient eval for CABG Awaiting transfer to [facility] via ground transfer. Hypotensive overnight likely related to nitropaste, which was held. T2DM A1C is 7.9 Hold Jardiance and Trulicity Cont Lantus/NovoLog per protocol while admitted, currently at goal. HTN Continue metoprolol, Lasix and lisinopril,Held nitro as above. Hold parameters on other meds Depression with anxiety Continue Effexor Chronic back pain Continue gabapentin and tramadol Tobacco abuse Continue to encourage smoking cessation DVT prophylaxis:Heparin infusion Dispo: PCU transfer to [facility] for evaluation for CABG PCP: Dr. Jurado Full code [facility] and Anticipated Discharge Date Admission Date: July 19, 2021 Subjective 70 yo M with CAD awaiting transfer to [facility] per cardiology hypotension in reponse to nitro-held patients reports slight chest pain overnight no current chest pain dneies SOB, tolerating PO ambulating at baseline Review of Systems Review of Systems: All systems were reviewed and negative except as indicated in subjective above. Physical Exam Physical Exam: CONSTITUTIONAL: WNWD, vitals as above, generally well- appearing, NAD EYES: normal conjunctivae, no scleral icterus ENT: external ear and nose normal, NECK: trachea midline, RESPIRATORY: clear to auscultation bilaterally, no crackles, rales or wheezes, normal respiratory effort CARDIOVASCULAR: regular rate and rhythm, S1 and 2 heard without murmurs, gallops or rubs, no JVD, no peripheral edema CHEST: inspection of chest was normal GASTROINTESTINAL: soft, nontender, ND, no guarding MUSCULOSKELETAL: strength 5/5 throughout, head is normocephalic and atraumatic SKIN: warm and dry, radial wound closed, no redness or swelling, dressing c/d/i NEUROLOGIC: CN 2-12 grossly intact, no sensory deficit, normal cognition, normal speech, no tremor PSYCHIATRIC: alert cooperative and oriented to person, place and time.
== END 2021-07-21 17:11 | disposition short-term general hospital (02) ==
LOC: ED 14:33 → CC 15:47 → INTOOBSV 16:19 → 2E 16:19 → SUATTDRO 17:54

== ENCOUNTER 2023-06-20 09:57 | Observation (INO) ==
--- NOTE | 2023-06-20 10:27 | Pre Anesthesia Assessment ---
Date of Service June 20, 2023 Pre Sedation Assessment Cardiovascular + regular rate Respiratory + respiratory effort normal Pre-Sedation Airway Assessment Smoking Status: Current some day smoker Hx Sleep Apnea: No Hx Difficult Intubation: No Short, Thick Neck: No Thyromental Distance: > or= 3.5 Finger Breadths Oral Cavity: + Dentures Mallampati Class: III ASA: ASA3 Procedure Planning Contraindications for Sedation: none Current Medications Reviewed: Yes Notes The planned sedation has been discussed with the patient. Informed Consent was obtained. I have identified the patient, determined the appropriateness of sedation and have assessed the patient immediately prior to the procedure. All medicine(s) and interventions are by my order.
--- NOTE | 2023-06-20 10:27 | History & Physical Bridge Note ---
Date of Service June 20, 2023 History & Physical Bridge Note I have examined the patient, reviewed the History & Physical and in the interval since the performance of the History & Physical I have noted the following changes of clinical significance: no changes noted
[2023-06-20] MEDS: BUPIVACAINE 0.25% PF 30 ML VIAL ONE (11:14)
[2023-06-20] MEDS: LIDOCAINE 1% LOCAL 20 ML VIAL ONE (11:14)
[2023-06-20] MEDS: WATER, STERILE FOR INJ 10 ML VIAL ONE (11:15)
[2023-06-20] MEDS: ceFAZolin 330 MG/ML 1 GM VIAL ONE (11:15)
[2023-06-20] MEDS: VANCOMYCIN HCL 1000MG/20ML VIAL ONE (11:15)
[2023-06-20] MEDS: MIDAZOLAM HCL 5 MG/ML 1 ML VIAL ONE (11:25)
[2023-06-20] MEDS: fentaNYL citrate PF 100 MCG/2 ML VIAL ONE (11:25)
--- NOTE | 2023-06-20 11:30 | Electrophysiology Report ---
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 He has a persistently low ejection fraction less than 35%. He is on guideline directed medical therapy. He has not had revascularization in the last 90 days nor suffered myocardial infarction in the past 40 days. He has an anticipated longevity greater than 1 year. 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 Based on this information is felt to be a good candidate for an ICD as primary prevention against sudden cardiac . Shared decision-making including a discussion about not implanting the device was undertaken with the patient. Procedure in detail: The patient was informed the risks benefits and alternatives to the intended procedure. He understood which proceed. He was taken to the electrophysiology suite in a fasting state. Preoperative antibiotic was administered. Conscious sedation was administered per protocol the patient was monitored electrocardiographically throughout today's procedure. The left upper chest area was prepped and draped in the usual sterile fashion. This area was anesthetized using subcutaneous menstruation of lidocaine and Marcaine solution. An incision was made at this site and carried down to the prepectoralis fascia using sharp dissection. Electrocautery was also employed for dissection as well as for hemostasis. Device pocket was fashioned in the tissues above the pectoralis muscle. Left axillary vein was subsequently accessed using modified Seldinger technique and sheath was placed over guidewire at this site. This sheath was used facilitate passage of the ICD lead to the right ventricular apex under fluoroscopic guidance. Adequate sensing threshold parameters were obtained prior to active fixation of this lead to the endocardial surface. The proximal portion lead was then sutured to prepectoralis fascia using nonabsorbable suture. Device pocket was irrigated with an antibiotic solution. Lead was then attached to the device. The device and lead were then placed in the pocket the pocket was closed in 3 layers of absorbable suture. Steri-Strips and sterile dressing were applied. The patient tolerated procedure well. There were no immediate complications. Equipment used: Right ventricular lead: Chief Gauger Blabroom model number [id number] serial number [id number] S Measured data Right ventricular lead: R-waves measured 13 mV. Pacing threshold 0.75 volts at 0.4 millisecond with a pacing impedance of 418 Ohms Impression: Successful implant of single-chamber ICD [facility] Electrophysiology codes ICD Procedure 1: ICD: 06910 Insert single or dual ICD system PG Moderate Sedation Codes Moderate Sedation Codes Procedure 1: Sedation/Anesthesia: 35113 Mod Sedation by the same physician;Init15 Min Child Age 5 & Up Procedure 2: Sedation/Anesthesia: 33365 Mod Sedation by the same physician; Ea [id number] Minutes
--- NOTE | 2023-06-20 11:30 | Post Anesthesia Assessment ---
Date of Service June 20, 2023 Post Sedation Assessment Vital Signs Temp Pulse Resp BP Pulse Ox O2 Del Method 06/20/23 10:20 36.8 C 74 20 143/87 H 97 Room Air Recovery Score Activity: Moves 4 extremities Respiration: Deep Breath/Cough Circulation: +/-20% PreAnes Value Consciousness: Fully Awake Oxygen Saturation: > 92% On Room Air Discharge Sedation Level of Care: Fast Track Phase II Post Sedation Plan On clinical assessment, the patient appears to have tolerated the sedation without complications. Patient is recovering as anticipated. Patient will continue to be monitored by nursing and may be discharged when sedation discharge criteria are met per below protocol. Upon Completions of procedure up to 15 minutes continue every 5 minute vital signs and the P.A.R. score; then discharge to a Phase I or Fast Track to Phase II per the following guidelines: * Discharge Patient to appropriate Phase II area if PAR is 8 or greater or return to pre- procedure baseline. The post - procedure orders will be as directed. * If PAR score is less than 8 or not return to pre-procedure baseline then patient will follow Phase I monitoring till PAR is reached for Phase II. The Phase I may be done in procedure room or may call to secure a Phase I area. * If naloxone or flumazenil are used for reversal, hold in Phase I for continued monitoring from when last reversal dose was given for a minimum of 60 minutes or longer pending the nurse and/or physician discretion of patient condition before discharge to Phase II. Please call the Sedation Physician to re-evaluate and complete post-note for discharge to Phase II area. Do NOT discharge from procedure sedation or Phase 1 until post- sedation evaluation note is complete by procedure /sedation MD Sedation Discharge Instructions to be given to the patient at discharge to home.
--- OUTSIDE RECORDS SUMMARY | 2023-06-20 12:47 | External Medical Summary | Summary of Care ---
Author Name Unknown Organization [facility] Address [address] [place] [address] Phone [phone] Care Team Providers Care Sr Risk Management Consultant Name Role Phone Malika Limon PA-C Primary Care Provider Unavailable Encounter Details Date Type Department Care Team (Late st Contact Info) Description 06/06/2023 Population Health External Data Unspecified Department Allergies Active Allergy Reactions Criticality Noted Date Comments Influenza Virus Vaccine High 01/30/2013 Other - Drugs Medium 09/19/2010 Steroids- if injected pt becomes sick to stomach Percocet Itching 09/13/2000 Adhesive Tape Other (Please comment) 11/18/2013 Blisters documented as of this encounter (statuses as of 06/10/2023) Medications Medication Sig Dispensed Refills Start Date End Date Status Aspirin Low Dose 81 MG Oral Tablet Delayed Release Take 1 Tablet by mouth in the morning. 0 05/13/2021 Active Atorvastatin Calcium 80 MG Oral Tablet (Lipitor) Take 1 Tablet by mouth in the morning. 0 05/15/2021 Active Nitroglycerin 0.4 MG Sublingual Tablet Sublingual (Nitrostat)Indicatio ns:Acute ST elevation myocardial infarction (STEMI) involving left anterior descending (LAD) coronary artery (HCC),Pericarditis as complication of acute myocardial infarction Place 1 Tablet under the tongue every 5 minutes as needed for Pain, Chest. And call [phone] Tablet 1 05/17/2021 Active OneTouch Delica Lancets 33GIndications:Type 2 diabetes mellitus with hemoglobin A1c goal of less than 7.0% ([facility]) Use to test blood sugars once a day Dx E11.9 100 Each 3 07/14/2021 Active Clopidogrel Bisulfate 75 MG Oral Tablet Take 1 Tablet by mouth in the morning. 0 Active Senna 8.6 MG Oral Capsule Take by mouth 1 Capsule 2 times a day as needed for Constipation. 30 Capsule 1 08/31/2021 Active Docusate Sodium 100 MG Oral Capsule (Colace) Take by mouth 1 Capsule 2 times a day as needed for Constipation. 30 Capsule 1 08/31/2021 Active hydrOXYzine HCl 10 MG Oral Tablet (Atarax)Indications: Anxiety Take 1 Tablet (10 mg) by mouth every 8 hours as needed for Anxiety. 30 Tablet 0 05/02/2022 Active OneTouch Verio In Vitro Strip (Glucose Blood) Use to check blood sugars once per day as directed Dx: E11.9 100 Strip 3 05/30/2022 Active Pantoprazole Sodium 40 MG Oral Tablet Delayed Release (Protonix) TAKE BY MOUTH 1 TABLET IN THE MORNING. 90 Tablet 1 07/30/2022 Active Entresto 24-26 MG Oral Tablet (sacubitril-valsarta n 24-26 mg per tab)Indications:Master Merchandiser rodolfo systolic congestive heart failure (HCC) Take 1 Tablet by mouth in the morning and 1 Tablet before bedtime. 0 Active predniSONE 10 MG Oral Tablet (Deltasone)Indicatio ns:COPD exacerbation (HCC) Take 5 tabs for 2 days, 4 tabs for 2 days, 3 tabs for 2 days, 2 tabs for 2 days 1 tab for 2 days 30 Tablet 0 07/31/2022 Active Venlafaxine HCl ER 150 MG Oral Capsule Extended Release 24 Hour (Effexor XR)Indications:Curre nt moderate episode of major depressive disorder without prior episode (HCC) Take 1 Capsule by mouth in the morning. Do not cut, crush or chew. 90 Capsule 3 08/06/2022 Active Trulicity 3 MG/0.5ML Subcutaneous Solution Pen-injector (Dulaglutide)Indicat ions:Type 2 diabetes mellitus with hemoglobin A1c goal of less than 7.0% ([facility]) Inject 3 mg once weekly- dose increase 6 mL 1 08/22/2022 Active Gabapentin 300 MG Oral Capsule (Neurontin)Indicatio ns:Chronic back pain greater than 3 months duration,Chronic neck pain Take 1 Capsule by mouth in the morning and 1 Capsule before bedtime. 180 Capsule 0 10/17/2022 Active traMADol HCl 50 MG Oral Tablet (Ultram)Indications: Chronic bilateral low back pain with right-sided sciatica Take 1 Tablet by mouth every 8 hours as needed for Pain, Severe. 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 07/31/2022 MYRNA (generalized anxiety disorder) 07/31/2022 Atrial fibrillation 07/31/2022 Systolic congestive heart failure 08/07/2021 Atherosclerosis of aorta 08/07/2021 S/P CABG x 2 07/26/2021 Ischemic cardiomyopathy 07/22/2021 Moderate episode of recurrent major depressive d isorder 06/02/2021 Anxiety 06/02/2021 Old [place] (myocardial infarction) 06/02/2021 Coronary artery disease invo lving [place] coronary artery of [place] heart without angina pectoris 06/02/2021 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 07/08/2019 Type 2 diabetes mellitus wit h hemoglobin A1c goal of less than 7.0% 08/09/2014 Overview: ICD-10 update of inactive term HTN, goal below 140/90 08/09/2014 Chronic back pain greater than 3 months duration 04/30/2014 Gastroesophageal reflux disease without esophagi tis Hyperlipidemia with target LDL less than 100 Overview: ICD-10 update of inactive term documented as of this encounter (statuses as of 06/10/2023) Resolved Problems Problem Noted Date Diagnosed Date Resolved Date Gastroesophageal reflux dise ase without esophagitis 07/08/2019 07/08/2019 Preop examination 09/20/2014 02/19/2019 Depression 09/15/2014 07/08/2019 Irritable mood 08/17/2014 02/19/2019 Cervical pain (neck) 04/30/2014 019 Overview: acute Lumbago 11/18/2013 02/19/2019 Cervicalgia 11/18/2013 02/19/2019 Overview: acute Type 2 diabetes mellitus wit h hemoglobin A1c goal of less than 7.0% 06/16/2002 08/09/2014 Overview: ICD-10 update of inactive term Mixed dyslipidemia 06/16/2002 5 Back disorder 04/13/2002 02/19/2019 Overview: Less specific Neuropathy 02/19/2019 Insomnia 02/19/2019 documented as of this encounter (statuses as of 06/10/2023) Immunizations Name Administration Dates Next Due COVID-19 mRNA, LNP-s, No Pre serve, 2-Dose Series (Pfizer) 02/09/2021,09/03/2020,08/13/2020 Pneumococcal Conjugate Vacc, 13 Valent (Prevnar) 02/23/2019 TDAP (age 10 and older)(Boostrix) 08/17/2014 documented as of this encounter Social History Tobacco Use Types Packs/Day Years Used Date Smoking Tobacco: Every Day Cigarettes 0.5 Pipe Cigars Smokeless Tobacco: Never Comments:pipe Alcohol Use Standard Drinks/Week Comments Yes 0 (1 standard drink = 0.6 oz pur e alcohol) occasional PHQ-2 Answer Date Recorded PHQ-2 Score -1 02/14/2020 Sex and Gender Information Value Date Recorded Sex Assigned at Not on file Gender Identity Not on file Sexual Orientation Not on file Job Start Date Occupation Industry Not on file Not on file Not on file documented as of this encounter Plan of Treatment Scheduled Procedures Name Priority Associated Diagnoses Date/Ti me COLONOSCOPY FLEXIBLE PROXIMA L DIAGNOSTIC Recall Encounter for screening colonoscopy Health Maintenance Due Date Last Done Comments DISCUSS TOBACCO CESSATION (REFER TO SMARTSET #[id number]) 1950 Cologuard 1997 Fecal Occult Blood Test 1997 Sigmoidoscopy 1997 Hepatitis B (1 of 3 - Risk 3-dose series) 2012 Pneumococcal Vaccine: 65+ Years (3 - PPSV23 or PCV20) 02/24/2020 02/23/2019, 05/05/2008 Depression Screening 07/08/2020 07/08/2019 Diabetic Foot Exam 10/09/2022 10/09/2021, 0 02/23/2019, 08/17/2014 HbA1c 11/14/2022 05/16/2022, 08/0 01/2022, 07/22/2021, Additional history exists Albumin/Creatinine Ratio 01/02/2023 08 022, 01/16/2021, 05/11/2019, Additional history exists Diabetic Eye Exam 01/02/2023 01/02/2022, , 07/08/2019 Influenza Vaccine (FLU shot) (#1) 2023 03/21/2010, 03/02/2009, 05/05/2008, Additional history exists GFR 05/16/2023 05/16/2022, 08/0 01/2022, 08/07/2021, Additional history exists Colonoscopy 05/18/2025 05/18/2015, 05/18/2015 Colorectal Cancer Screening 05/18/2025 DTaP,Tdap,and Td Vaccines (4 - Td or Tdap) 05/09/2026 05/09/2016, 08/17/2014, 05/05/2008 AAA Screening Completed 02/18/2019 Zoster Vaccines Completed 12/31/2022, 10/26/2022 COVID-19 Vaccine Completed 02/09/2021, 02/2021, 08/13/2020 GARDASIL-HPV IMMUNIZATION SERIES Aged Out No longer eligible based on patient's age to complete this topic MENINGOCOCCAL (MENACTRA/MENVEO) Aged Out No longer eligible based on patient's age to complete this topic documented as of this encounter Medical Devices Implanted Type [employer] Information Clerk Device Identifier Shelf Expiration Date Model / Serial / Lot Suture Steel 6 [id number] - [id number] Implanted:Qty: 8 on 07/23/2021 by Tyler Hollins MD at OR [facility] [place] N/A: Sternum JNDian : [employer] 04/25/2026 [id number] / / [id number] documented as of this encounter Advance Directives Latest Code Status on File Code Status Date Activated Date Inactivated Comments Full Code 07/23/2021 11:31 AM 07/28/2021 3:53 PM This order reflects the patients wishes and were consensually agreed upon. Code Status History Code Status Date Activated Date Inactivated Comments Full Code 07/21/2021 7:04 PM 07/23/2021 11:31 AM This order reflects the patients wishes and were consensually agreed upon. Question Answer Comments Discussion of Advance Directives occurred with: Patient Care Teams Sr Risk Management Consultant Relationship Specialty Start Date End Date Malika Limon PA-C PCP - General Physician Senior Structural Engineer 03/07/23 documented as of this encounter
[2023-06-20] MEDS: oxyCODONE HCL IR 5 MG TAB (IMMEDIATE RELEASE) PO PRN (13:33)
[2023-06-20] MEDS ORDERED: NON-FORMULARY MEDICATION (Medical Marijuana 1 EA) INH PRN (16:14)
[2023-06-20] MEDS ORDERED: hydrOXYzine HCl 10 MG TAB PO PRN (16:14)
[2023-06-20] MEDS ORDERED: NITROGLYCERIN SL 0.4 MG/TAB TAB SL PRN (16:14)
[2023-06-20] MEDS: ACETAMINOPHEN 325 MG TAB PO PRN (16:35)
[2023-06-20] MEDS: GABAPENTIN 300 MG CAP PO SCH (17:58)
[2023-06-20] MEDS: oxyCODONE/APAP 7.5/325MG TAB PO PRN (18:07)
[2023-06-20] MEDS: ceFAZolin 1000MG 1,000 MG/7.5 ML SYR IV ONE (18:44)
[2023-06-20] MEDS: EMPAGLIFLOZIN 25 MG TAB PO SCH (19:53)
[2023-06-20] MEDS: VENLAFAXINE HCL XR 150 MG CAPXR PO SCH (19:54)
[2023-06-20] MEDS: VALSARTAN/SACUBITRIL 26/24MG TAB PO SCH (19:54)
--- NOTE | 2023-06-20 20:05 | Electrocardiogram Report ---
Test Reason : Blood Pressure : / mmHG Vent. Rate : 069 BPM Atrial Rate : 069 BPM P-R Int : 168 ms QRS Dur : 096 ms QT Int : 406 ms P-R-T Axes : 072 -62 078 degrees QTc Int : 435 ms Sinus rhythm with occasional Premature ventricular complexes Left axis deviation Low voltage QRS Cannot rule out Anteroseptal infarct (cited on or before 10-MAY-2021) Abnormal ECG When compared with ECG of 07-JUN-2023 12:43, (unconfirmed) Premature ventricular complexes are now Present Confirmed by Lam Munoz ([id number]) on 06/20/2023 8:05:15 PM Referred By: Delmar Munoz Confirmed By:Delmar Munoz
[2023-06-21] MEDS: oxyCODONE/APAP 7.5/325MG TAB PO SCH (04:14)
--- NOTE | 2023-06-21 08:41 | XRay Report ---
XR chest 2V PA/lateral CLINICAL HISTORY: EXACT TIME ORDERED Evaluate for pneumothorax and l TECHNIQUE: 2 views of the chest were obtained. Comparison: Comparison is made to chest radiograph 11/21/2021 FINDINGS: Interval placement of a implanted defibrillator. There is a new fracture of the superior median gorman otomy wire which was already fractured in one location in the prior exam. Calcified aortic knob is se en. The lungs are clear. No evidence of pleural effusion or pneumothorax. IMPRESSION: No acute chest disease. ACT 112: Negative or not required by law. Electronically signed by: Eamon Orozco M.D. 06/21/2023 8:40 AM
--- NOTE | 2023-06-21 09:41 | Discharge Summary ---
Date of Service June 21, 2023 Principal Diagnosis Ischemic cardiomyopathy Discharge Exam On the day of discharge, the patient was feeling well. Minimal pain at the implant site. There was no hematoma at the implant site. Minimal ecchymosis with no significant erythema. Discharge Data Allergies Allergy/AdvReac Type Severity Reaction Status Date / Time adhesive AdvReac Intermediate SKIN Verified 06/07/23 12:46 REACTION WITH BLISTERS Influenza Virus Vaccines AdvReac Mild lost his Verified 06/07/23 12:46 voice oxycodone [From Percocet] AdvReac Mild Nausea Verified 06/07/23 12:46 esomeprazole [From Nexium] AdvReac Unknown unsure of Verified 06/07/23 12:46 reaction Procedures Performed Operation Date: 06/20/23 11:00 Actual Procedures p ICD Insertion Single or Dual - Lam Munoz MD Ordered Studies 06/20/23 07:15 EP Lab Images for PACS ONCE Hospital Course (1) Ischemic cardiomyopathy: Plan On the day of admission the patient underwent implantation of single-chamber Medtronic ICD. No immediate complication. The following morning x-ray demonstrated stable lead position without pneumothorax. Device interrogation revealed normal function of the device and lead. Total Time Total Time Spent Total Time Spent (In Minutes): 20 Discharge Plan Discharge Items Patient Disposition: Home - Self-Care Reason For Visit: Ischemic Cardiomyopathy Discharge Diagnosis: Ischemic cardiomyopathy Activity: Per Instructions section Activity Comment: No lifting left arm above shoulder behind neck for 6 weeks Lifting: No more than 10 pounds Bathing: Keep incision dry Bathing Comment: Keep wound dry and Steri-Strips intact until follow-up in our clinic Sexual Activity: When tolerated Exercise/Sports: Rest today Driving/Machine Use: Resume 1 day after discharge Non-emergency contact: Healthcare Receptionist Call non-emergency contact if: you have any medication questions, your symptoms worsen, you have a fever, your wound has increased redness, your wound has increased drainage and your wound pain has increased Follow-up/Referrals: Andree Vanegas DO [Primary Care Provider] - 06/25/23 2:30 pm Diet: Carb Consistent or DM2 and Heart Healthy Addtl Attending Provider Instructions: None Pending Studies at Discharge: No Stand-Alone Forms: [facility] YesWeAd, Smoking Cessation Medications and DC Order Prescriptions: Continued atorvastatin 80 mg tablet 80 mg PO QAM Qty: 90 3RF clopidogrel 75 mg tablet 75 mg PO QAM 90 Days Qty: 90 3RF hydroxyzine HCl 10 mg tablet 10 mg PO TID PRN (Reason: anxiety) Qty: 14 0RF Entresto 24-26 mg tablet 1 tab PO HS oxycodone-acetaminophen 7.5-325 mg tablet 1 tab PO Q6H Jardiance 25 mg tablet 25 mg PO QPM nitroglycerin [Nitrostat] 0.4 mg tablet, sublingual 0.4 mg sublingual PRN PRN (Reason: chest pain) Qty: 30 0RF multivitamin Tablet 1 tab PO DAILY metoprolol succinate 25 mg tablet extended release 24 hr 12.5 mg PO QAM Qty: 90 3RF pantoprazole 40 mg Tablet,Delayed Release (Dr/Ec) 40 mg PO QAM gabapentin 300 mg capsule 300 mg PO Q6H venlafaxine 150 mg Capsule,Extended Release 24hr 150 mg PO PM Medical Marijuana 1 dose inhalation UD PRN (Reason: Pain) Trulicity 4.5 mg/0.5 mL Pen Injector 4.5 mg SUBCUT WK Patient Comments: takes saturday Discharge Orders: Discharge Order (Routine); Ordered 06/21/23 Ordered By: Lam Shetty/Other Patient Handouts: Anticoagulants, Communicating About Pain, ED ICD Discharge, Diabetes and High Blood Pressure Admission Data Admit Date/Time: 06/20/23 11:29 Attending Provider: Lam Munoz Admit Provider: Lam Munoz Primary Care Provider: Andree Vanegas Other Interventions: Discharge Summary Assessment (RN) Last Done: 06/21/23 10:26 Coding Level of Care Code 97969 IN/OBS DISCH 30 MIN/LESS Diagnoses Ischemic cardiomyopathy I25.5
[2023-06-21] MEDS: MULTIVITAMIN TAB PO SCH (10:06)
[2023-06-21] MEDS: CLOPIDOGREL BISULFATE 75 MG TAB PO SCH (10:06)
[2023-06-21] MEDS: ATORVASTATIN 40 MG TAB PO SCH (10:07)
[2023-06-21] MEDS: PANTOprazole 40 MG TAB PO SCH (10:07)
[2023-06-21] MEDS: METOPROLOL SUCC 25MG EXT REL TAB PO SCH (10:09)
== END 2023-06-21 11:44 | disposition home or self-care (01) ==
LOC: EP 09:57 → 2E 09:57
PROC: EPB.ICD (2023-06-20 11:00)